=== PATIENT | male | born 1930 | race Caucasian/White ===

== ENCOUNTER 2018-04-25 16:52 | Observation (INO) ==
--- NOTE | 2018-04-25 17:46 | Emergency Department Note ---
Disposition Clinical Impression: Urinary retention Dyspnea Qualifiers: Dyspnea type: unspecified Qualified Code(s): R06.00 - Dyspnea, unspecified Disposition: Admitted As Inpatient Condition: Good Time of Disposition: 12:28 Abdominal Pain HPI - General Chief Complaint: ED Abdominal Pain Stated Complaint: ABD ,Nausea,TAI, Unable to urinate x1wk Time Seen by Provider: 04/25/18 17:40 Source: patient Mode of arrival: ambulatory Limitations: no limitations Nursing Notes Reviewed: Yes Vital Signs Reviewed: Yes - History of Present Illness HPI Narrative: Patient is an 88-year-old male with past medical history of BPH, chronic COPD for which he wears 4 L nasal cannula oxygen chronically. He presents today due to 2 different complaints. First complaint is shortness of breath. He states that he has had increased shortness breath over the past 2-3 days, worse with exertion. Denies any increase in cough from baseline, any productive sputum, denies any fevers, nausea, vomiting, diarrhea, abdominal pain, chest pain. Second complaint is inability to urinate. He reports a history of BPH, has never had any biopsies performed. He states that yesterday, he only urinated once in 24 hours. He is only able to urinate in small amounts. He has not been able to urinate since early this morning and states that he does feel like he could urinate again but is unable to. Denies any dysuria, hematuria. Family members present at bedside and reports that patient seems somewhat mildly confused at home over the past few days. Pain Scale: 5 - Related Data Home Medications Medication Instructions Recorded Confirmed Aspirin [Lo-Dose Aspirin EC] 81 mg PO DAILY 12/29/17 04/25/18 Atorvastatin [Lipitor] 40 mg PO HS 12/29/17 04/25/18 Budesonide/Formoterol 160/4.5 2 puff IH BIDR 12/29/17 04/25/18 [Symbicort 160/4.5] Docusate [Colace] 100 mg PO DAILY 12/29/17 04/25/18 Ferrous Sulfate [Iron] 325 mg PO BID 12/29/17 04/25/18 Finasteride [Proscar] 5 mg PO DAILY 12/29/17 04/25/18 Furosemide [Lasix] 40 mg PO DAILY 12/29/17 04/25/18 Guaifenesin [Mucinex] 600 mg PO BID 12/29/17 04/25/18 Lactobacillus [Culturelle] 1 each PO DAILY 12/29/17 04/25/18 Loratadine [Allergy Relief] 10 mg PO DAILY 12/29/17 04/25/18 Mirtazapine [Remeron] 15 mg PO HS 12/29/17 04/25/18 Montelukast [Singulair] 10 mg PO DAILY 12/29/17 04/25/18 Multivit-Min/FA/Lycopen/Lutein 1 tab PO DAILY 12/29/17 04/25/18 [Centrum Silver Men Tablet] Tamsulosin [Flomax] 0.4 mg PO DAILY 12/29/17 04/25/18 rOPINIRole [Requip] 0.5 mg PO BID 12/29/17 04/25/18 Albuterol Sulfate [Albuterol 2 puff IH Q6H PRN 12/30/17 04/25/18 Inhaler] Metoprolol XL (24 HR) Succ [Toprol 25 mg PO DAILY 12/30/17 04/25/18 Xl] Allergies Allergy/AdvReac Type Severity Reaction Status Date / Time Iodinated Contrast- Oral and Allergy Hives Verified 04/25/18 17:02 IV Dye [Iodinated Contrast Media - IV Dye] Tetracycline Allergy Hives Verified 04/25/18 17:02 All systems ED: reviewed and negative except as stated. Constitutional: Denies: fever Cardiovascular: Denies: chest pain Respiratory: Reports: dyspnea. Denies: cough, wheezes, hemoptysis, sputum production Gastrointestinal: Denies: abdominal pain, nausea, vomiting, diarrhea Genitourinary: Denies: urgency, dysuria, frequency Musculoskeletal: Denies: back pain Integumentary: Denies: rash Neurological: Denies: headache Abdominal Pain PMH - Past Medical History Medical history: Reports: COPD, diabetes, myocardial infarction Male Surgical History: Reports: angioplasty/stent, prostatectomy, other Psychiatric history: Reports: no psych history - Social History Smoking status: Former smoker Alcohol use: Reports: none Drug use: Reports: none Physical Exam - General Limitations: no limitations General appearance: alert, in no apparent distress - Head Head exam: atraumatic, normocephalic, normal inspection - Eye Eye exam: Present: normal appearance, PERRL, EOMI - ENT ENT exam: normal exam, normal oropharynx, mucous membranes moist - Neck Neck exam: Present: normal inspection, full ROM, trachea midline - Chest Chest inspection: Present: normal inspection, symmetric chest wall rise, other ( Midline chest scar). Absent: tenderness, rash - Respiratory Respiratory exam: Present: normal lung sounds bilaterally. Absent: respiratory distress, wheezes, stridor, accessory muscle use - Cardiovascular Cardiovascular exam: Present: regular rate, normal rhythm, normal heart sounds - Abdominal Exam Abdominal exam: Present: soft, Non-Tender. Absent: tenderness, distention, guarding, rebound, rigidity - Extremities Exam Extremities exam: Present: normal inspection, full ROM. Absent: tenderness, pedal edema - Neurological Exam Neurological exam: Present: alert, oriented X3 - Psychiatric Psychiatric exam: Present: normal affect, normal mood - Skin Skin exam: Present: warm, dry, intact, normal color Course Course Narrative: Patient was documented as having saturation 89% on presentation. However, when patient is on his 4 L nasal cannula that he chronically wears, he is satting 97% . No acute respiratory distress. Lungs were clear to auscultation. Abdomen soft and nontender. Bedside ultrasound of the bladder was performed. It appears that his prostate is very large. Concern for prostate enlargement versus bladder tumor. We will place a Collins catheter to aid with urination. Basic blood work, abdominal labs including LFTs and lipase ordered. Troponin, EKG, chest x-ray ordered. EKG shows normal sinus rhythm with no acute ST changes. Chest x-ray showso focal infiltrate but does show bronchial wall thickening. We will give the patient prednisone, DuoNeb. We will also obtain CT abdomen and pelvis to assess bladder for BPH versus bladder tumor. 12:[address] abdomen pelvis: 1. Enlarged prostate gland protruding into the urinary bladder lumen. No acute obstructive uropathy. 2. Stable 3.7 cm diameter fusiform infrarenal abdominal aortic aneurysm. CXR negative. Creat baseline for patient. PAtient reassessed and satting 90% when conversing while on 4L NC. Patient not comfortable with going home at this time. Family members in the room and agrees. Talked with hospitalist and admitted the patient for urinary retention, increased oxygen requirement, dyspnea. Accepted by Dr. Bridges. Chest X-Ray 04/25/18 17:07 IMPRESSION: No acute focal infiltrate. Bronchial wall thickening, similar when compared to the previous exam, compatible with acute and/or chronic bronchitis, reactive airways disease, or secondary to smoking. D/ / Sherif Paige MD / Sherif Paige MD Interpreting Provider: Sherif Paige MD Abdomen/Pelvis CT 04/25/18 18:08 IMPRESSION: 1. Enlarged prostate gland protruding into the urinary bladder lumen. No acute obstructive uropathy. 2. Stable 3.7 cm diameter fusiform infrarenal abdominal aortic aneurysm. RECOMMENDATIONS: 3.7 cm AAA Recommend annual follow-up. Reference: J Vasc Surg 2009 Jul;50(4 Suppl):S2-49. D/ / Giles Phelan / Giles Phelan Interpreting Provider: Giles Phelan Head CT 04/25/18 18:19 IMPRESSION: No acute intracranial abnormality. Diffuse atrophic changes with findings suggesting chronic microvascular ischemia D/ / Ezio Greco MD / Ezio Greco MD Interpreting Provider: Ezio Greco MD Chest X-Ray 04/25/18 17:07 IMPRESSION: No acute focal infiltrate. Bronchial wall thickening, similar when compared to the previous exam, compatible with acute and/or chronic bronchitis, reactive airways disease, or secondary to smoking. D/ / Sherif Paige MD / Sherif Paige MD Interpreting Provider: Sherif Paige MD Vital Signs Temperature 98 F 04/25/18 17:02 Pulse Rate 74 04/25/18 17:02 Respiratory Rate 26 04/25/18 17:02 Blood Pressure 109/63 04/25/18 17:02 O2 Sat by Pulse Oximetry 89 04/25/18 17:02 Temperature 98.6 F 04/25/18 22:30 Pulse Rate 79 04/25/18 22:30 Respiratory Rate 17 04/25/18 22:30 Blood Pressure 130/67 04/25/18 22:30 O2 Sat by Pulse Oximetry 100 04/25/18 22:30 Oxygen Delivery Oxygen Delivery Nasal Cannula Abdominal Pain - MDM Narrative Medical decision making narrative: Patient was documented as having saturation 89% on presentation. However, when patient is on his 4 L nasal cannula that he chronically wears, he is satting 97% . No acute respiratory distress. Lungs were clear to auscultation. Abdomen soft and nontender. Bedside ultrasound of the bladder was performed. It appears that his prostate is very large. Concern for prostate enlargement versus bladder tumor. We will place a Collins catheter to aid with urination. Basic blood work, abdominal labs including LFTs and lipase ordered. Troponin, EKG, chest x-ray ordered. EKG shows normal sinus rhythm with no acute ST changes. Chest x-ray showso focal infiltrate but does show bronchial wall thickening. We will give the patient prednisone, DuoNeb. We will also obtain CT abdomen and pelvis to assess bladder for BPH versus bladder tumor. 12:[address] abdomen pelvis: 1. Enlarged prostate gland protruding into the urinary bladder lumen. No acute obstructive uropathy. 2. Stable 3.7 cm diameter fusiform infrarenal abdominal aortic aneurysm. CXR negative. Creat baseline for patient. PAtient reassessed and satting 90% when conversing while on 4L NC. Patient not comfortable with going home at this time. Family members in the room and agrees. Talked with hospitalist and admitted the patient for urinary retention, increased oxygen requirement, dyspnea. Accepted by Dr. Bridges. - Medical Records Medical records reviewed: Yes I reviewed the patient's medical records. - Lab Data Lab results reviewed: Yes I reviewed the patient's lab results. Result diagrams: 04/25/18 17:23 04/25/18 17:23 Lab Results 04/25/18 04/25/18 04/25/18 Range/Units 17:23 17:23 18:50 WBC 5.2 (4.3-11.1) K/mcL RBC 3.52 L (4.19-5.50) M/mcL Hgb 10.6 L (12.9-16.9) g/dL Hct 34.0 L (37.5-50.1) % MCV 96.6 (83.0-100.0) fL MCH 30.1 (28.0-33.3) pg MCHC 31.2 L (31.6-35.5) g/dL RDW 13.2 (11.5-14.5) % Plt Count 175 (140-400) K/mcL MPV 9.7 (9.4-12.4) fL Immature Gran % 0.4 (0-4) % Seg Neutrophils % 67.9 % Lymphocytes % 14.5 % Monocytes % 10.1 % Eosinophils % 6.1 % Basophils % 1.0 % Neutrophils # 3.6 (1.6-8.9) K/mcL Lymphocytes # 0.8 (0.6-4.6) K/mcL Monocytes # 0.5 (0.0-1.3) K/mcL Eosinophils # 0.3 (0.0-0.6) K/mcL Basophils # 0.1 (0.0-0.2) K/mcL VBG pH (7.32-7.42) pH Units VBG pCO2 (41-51) mmHg VBG pO2 (25-50) mmHg VBG HCO3 (21-27) mEq/L Sodium 144 (136-145) mEq/L Potassium 4.9 (3.5-5.1) mEq/L Chloride 105 (98-107) mEq/L Carbon Dioxide 29 (23-29) mEq/L BUN 39 H (8-23) mg/dL Creatinine 2.83 H (0.70-1.30) mg/dL Est GFR ( Amer) 26 L (> 60) Est GFR (Non-Af Amer) 21 L (> 60) BUN/Creatinine Ratio 14 (6-26) Glucose 91 (70-105) mg/dL Calculated Osmolality 307 H (280-300) Calcium 9.2 (8.6-10.3) mg/dL Total Bilirubin 0.3 (0.3-1.0) mg/dL AST 21 (13-39) Units/L ALT 12 (7-52) Units/L Alkaline Phosphatase 80 (34-104) Units/L Troponin I < 0.03 (< 0.04) ng/mL B-Natriuretic Peptide (Less than 100) pg/mL Serum Total Protein 6.3 L (6.4-8.9) g/dL Albumin 3.7 (3.5-5.7) g/dL Globulin 2.6 (2.4-3.5) g/dL Albumin/Globulin Ratio 1.4 (1.1-2.2) Amylase 79 (29-103) Units/L Lipase 22 (11-82) Units/L Urine Color Yellow (Yellow) Urine Clarity Cloudy A (Clear) Urine pH 5.0 (5.0-8.0) pH Units Ur Specific Mentor 1.024 (1.010-1.025) Urine Protein Negative (Neg-Trace) mg/dL Urine Glucose (UA) Normal (Normal) mg/dL Urine Ketones Negative (Negative) mg/dL Urine Blood Negative (Negative) Urine Nitrite Negative (Negative) Urine Bilirubin Negative (Negative) Urine Urobilinogen Normal (Normal) mg/dL Ur Leukocyte Esterase Small H (Negative) Urine Microscopic RBC 0-3 (0-3) per hpf Urine Microscopic WBC 0-3 (0-3) per hpf Ur Squamous Epith Cells Many H (None-Few) per lpf Urine Bacteria None Seen (None-Few) per hpf Hyaline Casts None Seen (None-Few) per lpf Ur Culture Indicated? NO. A (NO) 04/25/18 04/25/18 Range/Units 19:17 20:10 WBC (4.3-11.1) K/mcL RBC (4.19-5.50) M/mcL Hgb (12.9-16.9) g/dL Hct (37.5-50.1) % MCV (83.0-100.0) fL MCH (28.0-33.3) pg MCHC (31.6-35.5) g/dL RDW (11.5-14.5) % Plt Count (140-400) K/mcL MPV (9.4-12.4) fL Immature Gran % (0-4) % Seg Neutrophils % % Lymphocytes % % Monocytes % % Eosinophils % % Basophils % % Neutrophils # (1.6-8.9) K/mcL Lymphocytes # (0.6-4.6) K/mcL Monocytes # (0.0-1.3) K/mcL Eosinophils # (0.0-0.6) K/mcL Basophils # (0.0-0.2) K/mcL VBG pH 7.41 (7.32-7.42) pH Units VBG pCO2 51 (41-51) mmHg VBG pO2 195 H (25-50) mmHg VBG HCO3 32 H (21-27) mEq/L Sodium (136-145) mEq/L Potassium (3.5-5.1) mEq/L Chloride (98-107) mEq/L Carbon Dioxide (23-29) mEq/L BUN (8-23) mg/dL Creatinine (0.70-1.30) mg/dL Est GFR ( Amer) (> 60) Est GFR (Non-Af Amer) (> 60) BUN/Creatinine Ratio (6-26) Glucose (70-105) mg/dL Calculated Osmolality (280-300) Calcium (8.6-10.3) mg/dL Total Bilirubin (0.3-1.0) mg/dL AST (13-39) Units/L ALT (7-52) Units/L Alkaline Phosphatase (34-104) Units/L Troponin I (< 0.04) ng/mL B-Natriuretic Peptide 218 H (Less than 100) pg/mL Serum Total Protein (6.4-8.9) g/dL Albumin (3.5-5.7) g/dL Globulin (2.4-3.5) g/dL Albumin/Globulin Ratio (1.1-2.2) Amylase (29-103) Units/L Lipase (11-82) Units/L Urine Color (Yellow) Urine Clarity (Clear) Urine pH (5.0-8.0) pH Units Ur Specific Mentor (1.010-1.025) Urine Protein (Neg-Trace) mg/dL Urine Glucose (UA) (Normal) mg/dL Urine Ketones (Negative) mg/dL Urine Blood (Negative) Urine Nitrite (Negative) Urine Bilirubin (Negative) Urine Urobilinogen (Normal) mg/dL Ur Leukocyte Esterase (Negative) Urine Microscopic RBC (0-3) per hpf Urine Microscopic WBC (0-3) per hpf Ur Squamous Epith Cells (None-Few) per lpf Urine Bacteria (None-Few) per hpf Hyaline Casts (None-Few) per lpf Ur Culture Indicated? (NO) - Radiology Data Radiology results reviewed: Yes I reviewed the patient's radiology results. Chest X-Ray 04/25/18 17:07 IMPRESSION: No acute focal infiltrate. Bronchial wall thickening, similar when compared to the previous exam, compatible with acute and/or chronic bronchitis, reactive airways disease, or secondary to smoking. D/ / Sherif Paige MD / Sherif Paige MD Interpreting Provider: Sherif Paige MD Abdomen/Pelvis CT 04/25/18 18:08 IMPRESSION: 1. Enlarged prostate gland protruding into the urinary bladder lumen. No acute obstructive uropathy. 2. Stable 3.7 cm diameter fusiform infrarenal abdominal aortic aneurysm. RECOMMENDATIONS: 3.7 cm AAA Recommend annual follow-up. Reference: J Vasc Surg 2009 Jul;50(4 Suppl):S2-49. D/ / Giles Phelan / Giles Phelan Interpreting Provider: Giles Phelan Head CT 04/25/18 18:19 IMPRESSION: No acute intracranial abnormality. Diffuse atrophic changes with findings suggesting chronic microvascular ischemia D/ / Ezio Greco MD / Ezio Greco MD Interpreting Provider: Ezio Greco MD Chest X-Ray 04/25/18 17:07 IMPRESSION: No acute focal infiltrate. Bronchial wall thickening, similar when compared to the previous exam, compatible with acute and/or chronic bronchitis, reactive airways disease, or secondary to smoking. D/ / Sherif Paige MD / Sherif Paige MD Interpreting Provider: Sherif Paige MD - EKG Data EKG attestation: Yes I reviewed and interpreted this EKG. EKG results narrative: 04/25/2018 at 17:29. Normal sinus rhythm. Rate 65. WA 179. QRS 116. QRS 114. Normal axis. No acute ST elevation or depression. Attestation Statement - Attestation Attestation: I, Dyllan Lazaro DO, examined this patient [id number] and my medical decision-making was reviewed with Dr. Chilango Wesley, Resident Physician. I agree with the documented findings, disposition and treatment plan as described except to the extent set forth below. Please see my progress notes for details.
[2018-04-25 17:47] LABS: Basophils # 0.1 K/mcL (0.0-0.2); Eosinophils # 0.3 K/mcL (0.0-0.6); Eosinophils % 6.1 %; Hemoglobin 10.6 g/dL (12.9-16.9); Immature Granulocytes % 0.4 % (0-4); Lymphocytes # 0.8 K/mcL (0.6-4.6); Lymphocytes % 14.5 %; Mean Corpuscular HGB Conc 31.2 g/dL (31.6-35.5); Mean Corpuscular Hemoglobin 30.1 pg (28.0-33.3); Mean Corpuscular Volume 96.6 fL (83.0-100.0); Mean Platelet Volume 9.7 fL (9.4-12.4); Monocytes # 0.5 K/mcL (0.0-1.3); Monocytes % 10.1 %; Neutrophils # 3.6 K/mcL (1.6-8.9); Platelet Count 175 K/mcL (140-400); Red Blood Count 3.52 M/mcL (4.19-5.50); Red Cell Distribution Width 13.2 % (11.5-14.5); Segmented Neutrophils % 67.9 %
[2018-04-25 18:07] LABS: Alanine Aminotransferase 12 Units/L (7-52); Albumin 3.7 g/dL (3.5-5.7); Albumin/Globulin Ratio 1.4 (1.1-2.2); Alkaline Phosphatase 80 Units/L (34-104); Amylase 79 Units/L (29-103); Aspartate Amino Transferase 21 Units/L (13-39); BUN/Creatinine Ratio 14 (6-26); Bilirubin,Total 0.3 mg/dL (0.3-1.0); Blood Urea Nitrogen 39 mg/dL (8-23); Calcium 9.2 mg/dL (8.6-10.3); Carbon Dioxide 29 mEq/L (23-29); Chloride 105 mEq/L (98-107); Globulin 2.6 g/dL (2.4-3.5); Glucose 91 mg/dL (70-105); Lipase 22 Units/L (11-82); Osmolality,Calculated 307 (280-300); Potassium 4.9 mEq/L (3.5-5.1); Sodium 144 mEq/L (136-145); Total Protein 6.3 g/dL (6.4-8.9); eGFR For African Americans 26 (> 60); eGFR For Non-African Americans 21 (> 60)
[2018-04-25] MEDS ORDERED: predniSONE 20 MG TABLET PO ONE (18:07)
[2018-04-25] MEDS ORDERED: Ipratropium/Albuterol Neb 3 ML IH ONE (18:07)
[2018-04-25 18:08] LABS: Troponin I < 0.03 ng/mL (< 0.04)
--- NOTE | 2018-04-25 18:49 | Emergency Department Note ---
Disposition Clinical Impression: Urinary retention Dyspnea Qualifiers: Dyspnea type: unspecified Qualified Code(s): R06.00 - Dyspnea, unspecified Disposition: Admitted As Inpatient Condition: Good Time of Disposition: 19:00 General Adult HPI - General Chief complaint: ED Abdominal Pain Stated complaint: ABD ,Nausea,TAI, Unable to urinate x1wk Time Seen by Provider: 04/25/18 17:40 Source: patient Mode of arrival: ambulatory Limitations: no limitations - History of Present Illness Pain Scale: 5 - Related Data Home Medications Medication Instructions Recorded Confirmed Aspirin [Lo-Dose Aspirin EC] 81 mg PO DAILY 12/29/17 04/25/18 Atorvastatin [Lipitor] 40 mg PO HS 12/29/17 04/25/18 Budesonide/Formoterol 160/4.5 2 puff IH BIDR 12/29/17 04/25/18 [Symbicort 160/4.5] Docusate [Colace] 100 mg PO DAILY 12/29/17 04/25/18 Ferrous Sulfate [Iron] 325 mg PO BID 12/29/17 04/25/18 Finasteride [Proscar] 5 mg PO DAILY 12/29/17 04/25/18 Furosemide [Lasix] 40 mg PO Q48H 12/29/17 04/26/18 Guaifenesin [Mucinex] 600 mg PO BID 12/29/17 04/25/18 Loratadine [Allergy Relief] 10 mg PO DAILY 12/29/17 04/25/18 Mirtazapine [Remeron] 15 mg PO HS 12/29/17 04/25/18 Montelukast [Singulair] 10 mg PO DAILY 12/29/17 04/25/18 Multivit-Min/FA/Lycopen/Lutein 1 tab PO DAILY 12/29/17 04/25/18 [Centrum Silver Men Tablet] Tamsulosin [Flomax] 0.4 mg PO DAILY 12/29/17 04/25/18 rOPINIRole [Requip] 0.5 mg PO BID 12/29/17 04/25/18 Albuterol Sulfate [Albuterol 2 puff IH Q6H PRN 12/30/17 04/25/18 Inhaler] Metoprolol XL (24 HR) Succ [Toprol 12.5 mg PO DAILY 03/25/18 07/20/18 Xl] Furosemide [Lasix] 40 mg PO Q48H 04/26/18 04/26/18 Allergies Allergy/AdvReac Type Severity Reaction Status Date / Time Tetracycline Allergy Hives Verified 04/25/18 17:02 Constitutional: Denies: fever Cardiovascular: Denies: chest pain Respiratory: Reports: dyspnea. Denies: cough, wheezes, hemoptysis, sputum production Gastrointestinal: Denies: abdominal pain, nausea, vomiting, diarrhea Genitourinary: Denies: urgency, dysuria, frequency Musculoskeletal: Denies: back pain Integumentary: Denies: rash Neurological: Denies: headache Past Medical History - Past Medical History Medical history: Reports: COPD, diabetes, myocardial infarction Surgical history: Reports: angioplasty/stent, coronary bypass (CABG) Psychiatric history: Reports: no psych history - Social History Smoking Status: Former smoker Smokeless Tobacco Status: No Alcohol use: Reports: none Drug use: Reports: none Physical Exam - General Limitations: no limitations General appearance: alert, in no apparent distress Course Vital Signs Temperature 98 F 04/25/18 17:02 Pulse Rate 74 04/25/18 17:02 Respiratory Rate 26 04/25/18 17:02 Blood Pressure 109/63 04/25/18 17:02 O2 Sat by Pulse Oximetry 89 04/25/18 17:02 Temperature 98.6 F 04/25/18 22:30 Pulse Rate 79 04/25/18 22:30 Respiratory Rate 17 04/25/18 22:30 Blood Pressure 130/67 04/25/18 22:30 O2 Sat by Pulse Oximetry 100 04/25/18 22:30 Oxygen Delivery Oxygen Delivery Nasal Cannula Medical Decision Making - Lab Data Result diagrams: 04/25/18 17:23 04/25/18 17:23 Lab Results 04/25/18 04/25/18 04/25/18 Range/Units 17:23 17:23 18:50 WBC 5.2 (4.3-11.1) K/mcL RBC 3.52 L (4.19-5.50) M/mcL Hgb 10.6 L (12.9-16.9) g/dL Hct 34.0 L (37.5-50.1) % MCV 96.6 (83.0-100.0) fL MCH 30.1 (28.0-33.3) pg MCHC 31.2 L (31.6-35.5) g/dL RDW 13.2 (11.5-14.5) % Plt Count 175 (140-400) K/mcL MPV 9.7 (9.4-12.4) fL Immature Gran % 0.4 (0-4) % Seg Neutrophils % 67.9 % Lymphocytes % 14.5 % Monocytes % 10.1 % Eosinophils % 6.1 % Basophils % 1.0 % Neutrophils # 3.6 (1.6-8.9) K/mcL Lymphocytes # 0.8 (0.6-4.6) K/mcL Monocytes # 0.5 (0.0-1.3) K/mcL Eosinophils # 0.3 (0.0-0.6) K/mcL Basophils # 0.1 (0.0-0.2) K/mcL VBG pH (7.32-7.42) pH Units VBG pCO2 (41-51) mmHg VBG pO2 (25-50) mmHg VBG HCO3 (21-27) mEq/L Sodium 144 (136-145) mEq/L Potassium 4.9 (3.5-5.1) mEq/L Chloride 105 (98-107) mEq/L Carbon Dioxide 29 (23-29) mEq/L BUN 39 H (8-23) mg/dL Creatinine 2.83 H (0.70-1.30) mg/dL Est GFR ( Amer) 26 L (> 60) Est GFR (Non-Af Amer) 21 L (> 60) BUN/Creatinine Ratio 14 (6-26) Glucose 91 (70-105) mg/dL Calculated Osmolality 307 H (280-300) Calcium 9.2 (8.6-10.3) mg/dL Total Bilirubin 0.3 (0.3-1.0) mg/dL AST 21 (13-39) Units/L ALT 12 (7-52) Units/L Alkaline Phosphatase 80 (34-104) Units/L Troponin I < 0.03 (< 0.04) ng/mL B-Natriuretic Peptide (Less than 100) pg/mL Serum Total Protein 6.3 L (6.4-8.9) g/dL Albumin 3.7 (3.5-5.7) g/dL Globulin 2.6 (2.4-3.5) g/dL Albumin/Globulin Ratio 1.4 (1.1-2.2) Amylase 79 (29-103) Units/L Lipase 22 (11-82) Units/L Urine Color Yellow (Yellow) Urine Clarity Cloudy A (Clear) Urine pH 5.0 (5.0-8.0) pH Units Ur Specific Adrian 1.024 (1.010-1.025) Urine Protein Negative (Neg-Trace) mg/dL Urine Glucose (UA) Normal (Normal) mg/dL Urine Ketones Negative (Negative) mg/dL Urine Blood Negative (Negative) Urine Nitrite Negative (Negative) Urine Bilirubin Negative (Negative) Urine Urobilinogen Normal (Normal) mg/dL Ur Leukocyte Esterase Small H (Negative) Urine Microscopic RBC 0-3 (0-3) per hpf Urine Microscopic WBC 0-3 (0-3) per hpf Ur Squamous Epith Cells Many H (None-Few) per lpf Urine Bacteria None Seen (None-Few) per hpf Hyaline Casts None Seen (None-Few) per lpf Ur Culture Indicated? NO. A (NO) 04/25/18 04/25/18 Range/Units 19:17 20:10 WBC (4.3-11.1) K/mcL RBC (4.19-5.50) M/mcL Hgb (12.9-16.9) g/dL Hct (37.5-50.1) % MCV (83.0-100.0) fL MCH (28.0-33.3) pg MCHC (31.6-35.5) g/dL RDW (11.5-14.5) % Plt Count (140-400) K/mcL MPV (9.4-12.4) fL Immature Gran % (0-4) % Seg Neutrophils % % Lymphocytes % % Monocytes % % Eosinophils % % Basophils % % Neutrophils # (1.6-8.9) K/mcL Lymphocytes # (0.6-4.6) K/mcL Monocytes # (0.0-1.3) K/mcL Eosinophils # (0.0-0.6) K/mcL Basophils # (0.0-0.2) K/mcL VBG pH 7.41 (7.32-7.42) pH Units VBG pCO2 51 (41-51) mmHg VBG pO2 195 H (25-50) mmHg VBG HCO3 32 H (21-27) mEq/L Sodium (136-145) mEq/L Potassium (3.5-5.1) mEq/L Chloride (98-107) mEq/L Carbon Dioxide (23-29) mEq/L BUN (8-23) mg/dL Creatinine (0.70-1.30) mg/dL Est GFR ( Amer) (> 60) Est GFR (Non-Af Amer) (> 60) BUN/Creatinine Ratio (6-26) Glucose (70-105) mg/dL Calculated Osmolality (280-300) Calcium (8.6-10.3) mg/dL Total Bilirubin (0.3-1.0) mg/dL AST (13-39) Units/L ALT (7-52) Units/L Alkaline Phosphatase (34-104) Units/L Troponin I (< 0.04) ng/mL B-Natriuretic Peptide 218 H (Less than 100) pg/mL Serum Total Protein (6.4-8.9) g/dL Albumin (3.5-5.7) g/dL Globulin (2.4-3.5) g/dL Albumin/Globulin Ratio (1.1-2.2) Amylase (29-103) Units/L Lipase (11-82) Units/L Urine Color (Yellow) Urine Clarity (Clear) Urine pH (5.0-8.0) pH Units Ur Specific Adrian (1.010-1.025) Urine Protein (Neg-Trace) mg/dL Urine Glucose (UA) (Normal) mg/dL Urine Ketones (Negative) mg/dL Urine Blood (Negative) Urine Nitrite (Negative) Urine Bilirubin (Negative) Urine Urobilinogen (Normal) mg/dL Ur Leukocyte Esterase (Negative) Urine Microscopic RBC (0-3) per hpf Urine Microscopic WBC (0-3) per hpf Ur Squamous Epith Cells (None-Few) per lpf Urine Bacteria (None-Few) per hpf Hyaline Casts (None-Few) per lpf Ur Culture Indicated? (NO) Attestation Statement - Attestation Attestation: I, Dyllan Lazaro DO, examined this patient [id number] and my medical decision-making was reviewed with Dr. Chilango Wesley, Resident Physician. I agree with the documented findings, disposition and treatment plan as described except to the extent set forth below. Please see my progress notes for details. 88-year-old male presents emergency room with multiple complaints. Over the last several days to weeks patient has had a decreased desire to eat food. Is also lost a significant amount weight. Patient has no specific history of cancer. Currently is denying chest pain shortness of breath headache vision changes nausea vomiting or diarrhea. Denies fevers or chills. Patient does have baseline shortness of breath, secondary to chronic COPD that requires 4 L of oxygen 24 hours a day home. Vital signs are stable on presentation. Physical exam shows a very thin frail-appearing gentleman. He does not appear to be in any respiratory distress. His conversation without dyspnea. Lungs are clear to auscultation bilaterally heart is regular. Abdomen is soft nontender nondistended no guarding no rigidity no peritoneal symptoms. Patient does have suprapubic discomfort. He does have a history of benign prostatic hypertrophy. He has had urinary issues her last 24 hours as well as iliotibial ventricles urine coming out. Bedside ultrasound was utilized on presentation showing approximately 100 mL of retained urine in the bladder. The prostate is significantly enlarged at this point. Patient has no signs of pitting edema or swelling in the lower extremities. Neurologic evaluation is unremarkable. CT imaging of the abdomen will be completed ruling out any other intra-abdominal pathology. Urinalysis will be completed CBC chemistry troponin liver function testing and lipase along with coagulation studies. Chest x-ray and CT the head will be resulted. Family member is with him at the bedside also has concerns for some intermittent confusion. VBG will be ordered to look for his oxygenation status. Symptomatically controlled will be completed. See detailed documentation of physical exam, medical intervention, medical decision- making and disposition in the resident physician's note. Patient will most likely require admission. No critical care provider the patient's treatment course at this time. 2004 Patient found a significantly enlarged prostate based on CT scan. Catheter was placed complications patient does have some relief of the symptoms. Patient is still describing shortness of breath spent a negative troponin and BNP. Chest x -ray is otherwise on a comparable. During conversation the patient dropped to 90% on his normal 4 L of oxygen. Ambulation test was going to be attempted with the patient is to dyspnea with conversation to complete this testing. Patient will be admitted for evaluation of the shortness of breath as well as cardiac treatment. He will also be evaluated with abdominal pain and prostatic enlargement. No other acute concerns or issues noted this time. No acute infectious etiology noted. Patient will be admitted. Treatment symptomatic control. CT the head is unremarkable and chest x-ray is stable.
[2018-04-25 19:04] LABS: Bilirubin,Urine Negative (Negative); Blood,Urine Negative (Negative); Clarity,Urine Cloudy (Clear); Color,Urine Yellow (Yellow); Glucose,Urine (UA) Normal (Normal); Ketones,Urine Negative (Negative); Leukocyte Esterase,Urine Small (Negative); Nitrite,Urine Negative (Negative); Protein,Urine Negative (Neg-Trace); Specific Gravity,Urine 1.024 (1.010-1.025); Urobilinogen,Urine Normal (Normal)
[2018-04-25 19:06] LABS: Bacteria,Urine None Seen per hpf (None-Few); Hyaline Casts,Urine None Seen per lpf (None-Few); RBC,Urine 0-3 per hpf (0-3); Squamous Epithelial Cell,Urine Many per lpf (None-Few); WBC,Urine 0-3 per hpf (0-3)
[2018-04-25 19:20] LABS: VBG HCO3 32 mEq/L (21-27); VBG PCO2 51 mmHg (41-51); VBG PH 7.41 pH Units (7.32-7.42); VBG PO2 195 mmHg (25-50)
[2018-04-25] MEDS ORDERED: Naloxone 0.4 MG/ML INJ IVP PRN (22:29)
[2018-04-25] MEDS ORDERED: Acetaminophen 325 MG TABLET PO PRN (22:29)
[2018-04-26] MEDS ORDERED: Metoprolol XL (24 HR) Succ 25 MG TAB.ER.24H PO SCH (09:00)
--- NOTE | 2018-04-26 12:00 | Electrocardiograph Report ---
[address] [address] Test Date: 2018-04-25 Pat Name: Som Collazo Department: 103 Room: [facility] Gender: M Electrician Telephone: JANEE : 1930 Requested By: Obdulia See Order Number: [id number] Reading MD: Cruzito Staley Measurements Intervals [place] Rate: 65 P: 99 ND: 179 QRS: 42 QRSD: 116 T: 70 QT: 403 QTc: 414 Interpretive Statements SINUS RHYTHM INCOMPLETE RIGHT BUNDLE BRANCH BLOCK Electronically Signed On 04-26-2018 11:58:52 EDT by Cruzito Staley
[2018-04-26] MEDS: Aspirin Enteric Coated 81 MG Tablet PO SCH (12:14)
[2018-04-26] MEDS: Finasteride 5 MG TABLET PO SCH (12:14)
[2018-04-26] MEDS: Furosemide 20 MG TABLET PO SCH (12:14)
[2018-04-26] MEDS: Loratadine 10 MG TABLET PO SCH (12:14)
[2018-04-26] MEDS: Lactobacillus 1 EACH CAP.SPRINK PO SCH (12:14)
[2018-04-26] MEDS: rOPINIRole 0.25 MG TABLET PO SCH ×2 (12:15→21:18)
[2018-04-26] MEDS: Multivit/Ca/Min/Fe/FA 1 TAB TABLET PO SCH (12:15)
[2018-04-26] MEDS: Budesonide/Formoterol 160/4.5 MDI IH SCH ×2 (12:43→19:39)
[2018-04-26] MEDS: *HR* Heparin 5,000 UNIT/ML VIAL SQ SCH ×2 (17:16→19:41)
--- NOTE | 2018-04-26 17:43 | Urology - Consult Note ---
Date of Encounter: 04/26/18 Time of Encounter: 17:40 - Assessment and Plan (1) Acute renal insufficiency Current Visit: Yes Status: Acute Assessment and plan: Patient serum creatinine is elevated at this time but fairly close to baseline. We will see if this improves with catheter drainage. (2) Urinary retention Current Visit: Yes Status: Acute Assessment and plan: Patient currently on Flomax which he will need to continue with. Continue catheter drainage. We will follow up with patient tomorrow. Urology CN:BREA Consult date: 04/26/18 Reason for consult Urology: Other (urinary retention) Requesting physician: Larisa Bridges History of present illness: Som is a 88-year-old male with a history of urinary retention. Patient was admitted to the hospital secondary urinary retention and acute renal insufficiency. Patient is known to the urology service for history of bladder outlet obstruction. Patient was on one Flomax per day. The daughter states that she questions whether the patient was taking his medication appropriately. He is doing well with his catheter at this time. Patient states that this happen once in the past and resolved after a week with the catheter and Flomax. Patient denies any flank pain. No current nausea or vomiting. Past Med Surg Social Fam HX - Past Medical History Medical history: COPD, diabetes, myocardial infarction Additional medical history: emphysema Psychiatric history: no psych history - Past Surgical History Surgical History: angioplasty/stent, coronary bypass (CABG) Additional surgical history: OPEN HEART. Prostate - Social History Smoking Status: Former smoker Smokeless Tobacco Status: No Alcohol use: none Drug use: none Medications and Allergies Aspirin [Lo-Dose Aspirin EC] 81 mg PO DAILY 12/29/17 [History] Atorvastatin [Lipitor] 40 mg PO HS 12/29/17 [History] Budesonide/Formoterol 160/4.5 [Symbicort 160/4.5] 2 puff IH BIDR 12/29/17 [ History] Docusate [Colace] 100 mg PO DAILY 12/29/17 [History] Ferrous Sulfate [Iron] 325 mg PO BID 12/29/17 [History] Finasteride [Proscar] 5 mg PO DAILY 12/29/17 [History] Furosemide [Lasix] 40 mg PO Q48H 12/29/17 [History] Guaifenesin [Mucinex] 600 mg PO BID 12/29/17 [History] Loratadine [Allergy Relief] 10 mg PO DAILY 12/29/17 [History] Mirtazapine [Remeron] 15 mg PO HS 12/29/17 [History] Montelukast [Singulair] 10 mg PO DAILY 12/29/17 [History] Multivit-Min/FA/Lycopen/Lutein [Centrum Silver Men Tablet] 1 tab PO DAILY [History] Tamsulosin [Flomax] 0.4 mg PO DAILY 12/29/17 [History] rOPINIRole [Requip] 0.5 mg PO BID 12/29/17 [History] Albuterol Sulfate [Albuterol Inhaler] 2 puff IH Q6H PRN 12/30/17 [History] Metoprolol XL (24 HR) Succ [Toprol Xl] 12.5 mg PO DAILY 12/30/17 [History] Furosemide [Lasix] 40 mg PO Q48H 04/26/18 [History] 3 Allergy/AdvReac Type Severity Reaction Status Date / Time Tetracycline Allergy Hives Verified 04/25/18 17:02 Review of Systems - Constitutional no chills, no fever(s) - EENT Nose, mouth and throat: no dizziness, no sore throat - Cardiovascular dyspnea, no chest pain - Respiratory dyspnea, no cough - Gastrointestinal no abdominal pain, no nausea, no vomiting - Genitourinary nocturia, no urinary urgency - Musculoskeletal no back pain, no muscle weakness - Integumentary no erythema, no swelling - Neurological no sensory deficit, no weakness - Psychiatric no anxiety, no confusion - Hematologic/Lymphatic no lymphadenopathy - Allergic/Immunologic no throat swelling, no wheezing Exam Initial Vital Signs Temp Pulse Resp BP Pulse Ox 98 F 74 26 109/63 89 04/25/18 17:02 04/25/18 17:02 04/25/18 17:02 04/25/18 17:02 04/25/18 17:02 General/Neuological: alert and oriented x 3 Eyes: normal pupils, non-icteric Neck: no lymphadenopathy noted, supple to touch Cardiovascular: RRR, no murmurs, no JVD on exam Respiratory: Patient on 4 L nasal cannula with good respiratory effort, good clear sounds ABD: soft, nontender, no masses palpated, good bowel sounds Back: no pain on percussion bilaterally : normal phallus, normal scrotum, testicles and epididymides normal, urethral meatus normal with catheter in place Skin: no rashes noted Musculoskeletal: normal gait, FROMx4 Urology Results - Labs 04/25/18 17:23 04/25/18 17:23 Abnormal lab results RBC 3.52 M/mcL (4.19-5.50) L 04/25/18 17:23 Hgb 10.6 g/dL (12.9-16.9) L 04/25/18 17: Hct 34.0 % (37.5-50.1) L 04/25/18 17: MCHC 31.2 g/dL (31.6-35.5) L 04/25/18 17:23 VBG pO2 195 mmHg (25-50) H 04/25/18 19: VBG HCO3 32 mEq/L (21-27) H 04/25/18 19: BUN 39 mg/dL (8-23) H 04/25/18 17: Creatinine 2.83 mg/dL (0.70-1.30) H 04/25/18 17:23 Est GFR ( Amer) 26 (> 60) L 04/25/18 17:23 Est GFR (Non-Af Amer) 21 (> 60) L 04/25/18 17:23 Calculated Osmolality 307 (280-300) H 04/25/18 17:23 B-Natriuretic Peptide 218 pg/mL (Less than 100) H 04/25/18 20:10 Serum Total Protein 6.3 g/dL (6.4-8.9) L 04/25/18 17:23 Urine Clarity Cloudy (Clear) A 04/25/18 18:50 Ur Leukocyte Esterase Small (Negative) H 04/25/18 18:50 Ur Squamous Epith Cells Many per lpf (None-Few) H 04/25/18 18:50 Ur Culture Indicated? NO. (NO) A 04/25/18 18:50 All other labs normal. - Imaging CT scan - abdomen: image reviewed CT scan - pelvis: image reviewed Consult Discharge Plan - Plan Referrals: Rosibel Castellano, COURT OPERATIONS CLERK [Primary Care Provider] -
--- NOTE | 2018-04-26 18:43 | Internal Med Progress Note ---
Date of Encounter: 04/26/18 Time of Encounter: 11:00 - Assessment and plan (1) Urinary retention Current Visit: Yes Status: Acute Assessment and plan: Urology consult with recommendations to continue Collins catheter drainage in addition to continuing Flomax. Will be reevaluated in the a.m. Appreciate any further recommendations. (2) CKD (chronic kidney disease) stage 4, GFR 15-29 ml/min Current Visit: Yes Status: Acute Assessment and plan: Patient with slight elevation in creatinine but appears to be close to baseline Continue to monitor (3) Anemia Current Visit: Yes Status: Acute Assessment and plan: Patient with stable chronic anemia Qualifiers: Chronic kidney disease stage: stage 4 (severe) Qualified Code(s): N18.4 - Chronic kidney disease, stage 4 (severe); D63.1 - Anemia in chronic kidney disease (4) DVT prophylaxis Current Visit: No Status: Acute Assessment and plan: Subcutaneous heparin - Time Spent With Patient Total time spent is greater than 50% in coordination of care (as documented) at patient's floor/unit and/or counseling patient: - Subjective Interval history: Patient with history of urinary retention and Collins catheter was placed in the ER - Constitutional Vitals: Temp Pulse Resp BP Pulse Ox 97.8 F 54 17 100/53 98 04/26/18 16:27 04/26/18 16:27 04/26/18 16:27 04/26/18 16:27 04/26/18 16:27 General appearance: Present: no acute distress - ENT ENT exam: Present: mucous membranes moist - Respiratory Respiratory exam: Present: CTAB. Absent: accessory muscle use, rales, rhonchi, wheezes - Cardiovascular Cardiovascular exam: Present: RRR, +S1, +S2. Absent: diastolic murmur, gallop, rubs, systolic murmur - GI/Abdominal GI/Abdominal exam: Present: soft - Psychiatric Psychiatric exam: Present: normal mood - Skin Skin exam: Present: normal color Internal Medicine: Result - Labs CBC & Chem 7: 04/25/18 17:23 04/25/18 17:23 Consult Discharge Plan - Plan Referrals: Rosibel Castellano CNP [Primary Care Provider] -
[2018-04-26] MEDS ORDERED: Mirtazapine 15 MG TABLET PO SCH (21:00)
[2018-04-27] MEDS: *HR* Heparin 5,000 UNIT/ML VIAL SQ SCH (04:58)
[2018-04-27] MEDS: Budesonide/Formoterol 160/4.5 MDI IH SCH (07:31)
[2018-04-27] MEDS ORDERED: Metoprolol XL (24 HR) Succ 25 MG TAB.ER.24H PO SCH (09:00)
[2018-04-27] MEDS: Aspirin Enteric Coated 81 MG Tablet PO SCH (09:25)
[2018-04-27] MEDS: Multivit/Ca/Min/Fe/FA 1 TAB TABLET PO SCH (09:25)
[2018-04-27] MEDS: rOPINIRole 0.25 MG TABLET PO SCH (09:25)
[2018-04-27] MEDS: Furosemide 20 MG TABLET PO SCH (09:25)
[2018-04-27] MEDS: Finasteride 5 MG TABLET PO SCH (09:25)
[2018-04-27] MEDS: Lactobacillus 1 EACH CAP.SPRINK PO SCH (09:26)
[2018-04-27] MEDS: Loratadine 10 MG TABLET PO SCH (09:26)
--- NOTE | 2018-04-27 09:56 | Urology Progress Note ---
Date of Encounter: 04/27/18 Time of Encounter: 09:55 - Assessment and Plan (1) Acute renal insufficiency Current Visit: Yes Status: Acute Assessment and plan: Labs pending. (2) Urinary retention Current Visit: Yes Status: Acute Assessment and plan: Keep catheter in place. Okay for patient to follow up with urology in 1-2 weeks for voiding trial. Call with any questions. Progress Note Narrative: Som is an 88-year-old male with a history of urinary retention. Patient's labs are pending. Good urine output. Objective Initial Vital Signs Temp Pulse Resp BP Pulse Ox 98 F 74 26 109/63 89 04/25/18 17:02 04/25/18 17:02 04/25/18 17:02 04/25/18 17:02 04/25/18 17:02 - General physical appearance Present: well developed, well nourished - Abdomen Present: soft. Absent: tender - Genitourinary Present: normal penis with no external lesions (Clear urine in catheter) - Labs 04/25/18 17:23 04/25/18 17:23 Consult Discharge Plan - Plan Referrals: Rosibel Castellano, PHYSICIAN NON INVASIVE CARDIOLOGIST [Primary Care Provider] -
[2018-04-27 10:40] LABS: Basophils % 0.6 %; Eosinophils # 0.2 K/mcL (0.0-0.6); Eosinophils % 3.7 %; Hematocrit 31.3 % (37.5-50.1); Hemoglobin 9.9 g/dL (12.9-16.9); Immature Granulocytes % 0.3 % (0-4); Lymphocytes # 0.8 K/mcL (0.6-4.6); Lymphocytes % 12.4 %; Mean Corpuscular HGB Conc 31.6 g/dL (31.6-35.5); Mean Corpuscular Hemoglobin 30.2 pg (28.0-33.3); Mean Corpuscular Volume 95.4 fL (83.0-100.0); Monocytes # 0.6 K/mcL (0.0-1.3); Monocytes % 8.6 %; Neutrophils # 4.8 K/mcL (1.6-8.9); Platelet Count 176 K/mcL (140-400); Red Blood Count 3.28 M/mcL (4.19-5.50); Red Cell Distribution Width 13.2 % (11.5-14.5); Segmented Neutrophils % 74.4 %
[2018-04-27 10:50] LABS: Calcium 8.9 mg/dL (8.6-10.3); Potassium 4.4 mEq/L (3.5-5.1)
[2018-04-27 10:53] VITALS: BP 118/60
--- NOTE | 2018-04-27 14:11 | Discharge Summary ---
- NOTES TO OUTPATIENT PROVIDER Notes to Outpatient Provider: Patient to maintain Collins catheter and follow-up with urology in 1-2 weeks for voiding trial Orders not resulted at time of discharge: Pending orders 04/26/18 04:00 Complete Blood Count [HEME] AM 0400 Date of Encounter: 04/27/18 Time of Encounter: 11:00 - Discharge Diagnosis (1) Urinary retention Priority: Primary Status: Acute (2) CKD (chronic kidney disease) stage 4, GFR 15-29 ml/min Priority: Secondary Status: Acute (3) Anemia Priority: Secondary Status: Acute Qualifiers: Chronic kidney disease stage: stage 4 (severe) Qualified Code(s): N18.4 - Chronic kidney disease, stage 4 (severe); D63.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 In the ER, Collins catheter was placed and patient was admitted to medical surgical unit for further management. During patients hospital stay urology was consulted with recommendations to continue home medications including Flomax and to be discharged with Collins catheter. Patient will follow-up with urology in 1-2 weeks for a voiding trial. - Time Spent with Patient Total time spent providing and/or coordinating discharge services: Less than 30 minutes - Discharge Medications Home Medications: Aspirin [Lo-Dose Aspirin EC] 81 mg PO DAILY 12/29/17 [History] Atorvastatin [Lipitor] 40 mg PO HS 12/29/17 [History] Budesonide/Formoterol 160/4.5 [Symbicort 160/4.5] 2 puff IH BIDR 12/29/17 [ History] Docusate [Colace] 100 mg PO DAILY 12/29/17 [History] Ferrous Sulfate [Iron] 325 mg PO BID 12/29/17 [History] Finasteride [Proscar] 5 mg PO DAILY 12/29/17 [History] Furosemide [Lasix] 40 mg PO Q48H 12/29/17 [History] Guaifenesin [Mucinex] 600 mg PO BID 12/29/17 [History] Loratadine [Allergy Relief] 10 mg PO DAILY 12/29/17 [History] Mirtazapine [Remeron] 15 mg PO HS 12/29/17 [History] Montelukast [Singulair] 10 mg PO DAILY 12/29/17 [History] Multivit-Min/FA/Lycopen/Lutein [Centrum Silver Men Tablet] 1 tab PO DAILY [History] Tamsulosin [Flomax] 0.4 mg PO DAILY 12/29/17 [History] rOPINIRole [Requip] 0.5 mg PO BID 12/29/17 [History] Albuterol Sulfate [Albuterol Inhaler] 2 puff IH Q6H PRN 12/30/17 [History] Metoprolol XL (24 HR) Succ [Toprol Xl] 12.5 mg PO DAILY 12/30/17 [History] Furosemide [Lasix] 40 mg PO Q48H 04/26/18 [History] Allergies/Adverse Reactions: 3 Allergy/AdvReac Type Severity Reaction Status Date / Time Tetracycline Allergy Hives Verified 04/25/18 17:02 Date of admission: 04/25/18 21:48 Primary care physician: NATALYA Isaac Consults: 04/25/18 22:31 Consult to Physical Therapy [CONS] Routine Comment: Evaluate, develop and implement POC Reason for Consult: Weakness Does patient have active BEDREST order?: No Is patient medically & hemodynamically stable?: Yes Consult to Underwear Cutter [CONS] Routine Reason for SW Consult: Pt needs help with CPAP machine 04/25/18 22:34 consult to hand surgeon [Consult to Nutrition] [CONS] Routine Comment: Consulting Provider: NUTRITION Reason for Dietary Consult: PO Supplementation 04/25/18 23:38 Consult to Nutrition [CONS] Routine Comment: Consulting Provider: NUTRITION Reason for Dietary Consult: Diet Education - Constitutional Vitals: Temp Pulse Resp BP Pulse Ox 98.9 F 54 17 118/60 96 04/27/18 10:52 04/27/18 10:52 04/27/18 10:52 04/27/18 10:52 04/27/18 10:52 General appearance: Present: no acute distress - Cardiovascular Cardiovascular exam: Present: RRR, +S1, +S2. Absent: diastolic murmur, gallop, rubs, systolic murmur - Patient Status Disposition: Home, Self-Care Condition: Good - Discharge Instructions Instructions: Urinary Retention in Men (GEN), Collins Catheter Placement and Care (DC) Follow Up With: Conrado Thomson MD [Partnered Physician] - (Web Requested) Rosibel Castellano CNP [Primary Care Provider] -
--- NOTE | 2018-04-29 10:29 | Physician Discharge Referral ---
Home Health/Hosp Referral Info Transfer to: Home Health - Diagnosis (1) Urinary retention Status: Acute (2) CKD (chronic kidney disease) stage 4, GFR 15-29 ml/min Status: Acute (3) Anemia Status: Acute - Respiratory Orders Smoking Cessation: Smoking cessation has been advised. For more information, call the [place] Tobacco Quit Line at 0-068-IMFP-NOW. - Services Needed Following services are medically necessary services: Nursing, Physical Therapy, Occupational Therapy - Transfer Medications Home Medications: Aspirin [Lo-Dose Aspirin EC] 81 mg PO DAILY 12/29/17 [History] Atorvastatin [Lipitor] 40 mg PO HS 12/29/17 [History] Budesonide/Formoterol 160/4.5 [Symbicort 160/4.5] 2 puff IH BIDR 12/29/17 [ History] Docusate [Colace] 100 mg PO DAILY 12/29/17 [History] Ferrous Sulfate [Iron] 325 mg PO BID 12/29/17 [History] Finasteride [Proscar] 5 mg PO DAILY 12/29/17 [History] Furosemide [Lasix] 40 mg PO Q48H 12/29/17 [History] Guaifenesin [Mucinex] 600 mg PO BID 12/29/17 [History] Loratadine [Allergy Relief] 10 mg PO DAILY 12/29/17 [History] Mirtazapine [Remeron] 15 mg PO HS 12/29/17 [History] Montelukast [Singulair] 10 mg PO DAILY 12/29/17 [History] Multivit-Min/FA/Lycopen/Lutein [Centrum Silver Men Tablet] 1 tab PO DAILY [History] Tamsulosin [Flomax] 0.4 mg PO DAILY 12/29/17 [History] rOPINIRole [Requip] 0.5 mg PO BID 12/29/17 [History] Albuterol Sulfate [Albuterol Inhaler] 2 puff IH Q6H PRN 12/30/17 [History] Metoprolol XL (24 HR) Succ [Toprol Xl] 12.5 mg PO DAILY 12/30/17 [History] Furosemide [Lasix] 40 mg PO Q48H 04/26/18 [History] Allergies/Adverse Reactions: 3 Allergy/AdvReac Type Severity Reaction Status Date / Time Tetracycline Allergy Hives Verified 04/25/18 17:02 Certification: Further, I certify that my clinical findings support that this patient is homebound (i.e. absences from home require considerable and taxing effort and are for medical reasons or worship services or infrequently or short duration when for other reasons) because: Homebound Reason: Patient requires assistance of a person or device to safely leave home Attestation: My signature below is to certify that this patient is under my care and that I, or nurse practitioner, or a physician's assistant community director working with me, has a face-to -face encounter with this patient.
== END 2018-04-27 15:55 | disposition home or self-care (01) ==
LOC: 2ANU 16:52 → EMEROO 16:52 → SUATTDRO 21:48 → 2ANU 21:58
PROVIDERS: ADMIT Internal Medicine; ATTEND Hospitalist

== ENCOUNTER 2018-09-01 13:06 | Inpatient (IN) ==
[2018-09-01] MEDS ORDERED: 0.9 % Sodium Chloride 1,000 ML IV SCH (16:45)
[2018-09-01] MEDS ORDERED: Naloxone 0.4 MG/ML INJ IVP PRN (18:18)
--- NOTE | 2018-09-01 18:38 | Internal Med History&Physical ---
Date of Encounter: 09/01/18 Time of Encounter: 11:00 Internal Medicine - H&P: HPI Chief complaint: Acute on chronic renal failure Admitted From: Hospital to Hospital Transfer History of present illness: Patient is an 88-year-old male with past medical history sniff can for urinary retention, CJD stage IV and chronic anemia who presents from [facility] ER on 09/01/18 due to acute on chronic renal failure. Patient is a poor historian but ER physician at [facility] states that patient will need transfer due to management of acute on chronic renal failure. Patient was found to have a creatinine of 3.8 with a GFR 15. Patient therefore subsequently transferred here to [facility] to be seen and managed by nephrology. Past Med Surg Social Fam HX - Past Medical History Medical history: COPD, diabetes, myocardial infarction Additional medical history: emphysema Psychiatric history: no psych history - Past Surgical History Surgical History: angioplasty/stent, coronary bypass (CABG) Additional surgical history: OPEN HEART. Prostate - Social History Smoking Status: Former smoker Smokeless Tobacco Status: No Alcohol use: none Drug use: none Internal Medicine - H&P: Meds Aspirin [Lo-Dose Aspirin EC] 81 mg PO DAILY 12/29/17 [History] Atorvastatin [Lipitor] 40 mg PO DAILY 12/29/17 [History] Budesonide/Formoterol 160/4.5 [Symbicort 160/4.5] 2 puff IH BIDR 12/29/17 [History] Docusate [Colace] 100 mg PO DAILY 12/29/17 [History] Ferrous Sulfate [Iron] 325 mg PO BID 12/29/17 [History] Finasteride [Proscar] 5 mg PO DAILY 12/29/17 [History] Guaifenesin [Mucinex] 600 mg PO BID 12/29/17 [History] Loratadine [Allergy Relief] 10 mg PO DAILY 12/29/17 [History] Mirtazapine [Remeron] 15 mg PO HS 12/29/17 [History] Montelukast [Singulair] 10 mg PO DAILY 12/29/17 [History] Multivit-Min/FA/Lycopen/Lutein [Centrum Silver Men Tablet] 1 tab PO DAILY 12/29/17 [History] Tamsulosin [Flomax] 0.4 mg PO DAILY 12/29/17 [History] rOPINIRole [Requip] 0.5 mg PO BID 12/29/17 [History] Albuterol Sulfate [Albuterol Inhaler] 2 puff IH Q6H PRN 12/30/17 [History] Metoprolol XL (24 HR) Succ [Toprol Xl] 12.5 mg PO DAILY 12/30/17 [History] Furosemide [Lasix] 40 mg PO Q48H 04/26/18 [History] Furosemide [Lasix] 20 mg PO Q48H 09/01/18 [History] Allergy/AdvReac Type Severity Reaction Status Date / Time tetracycline [Tetracycline] Allergy Hives Verified 09/01/18 16:01 Iodinated Contrast- Oral and AdvReac Pass Out Verified 09/01/18 16:02 IV Dye ROS unobtainable: due to mental status All Systems PM: A 10-system review of systems was performed and is negative for pertinent findings except as documented above in the HPI. - Constitutional Vitals: Temp Pulse Resp BP Pulse Ox 99.2 F 64 18 111/53 3 09/01/18 15:02 09/01/18 15:02 09/01/18 15:02 09/01/18 15:02 09/01/18 15:23 General appearance: Present: no acute distress Exam: As above - Head Head exam: Present: normocephalic - Eye Eye exam: Present: normal appearance - ENT ENT exam: Present: normal exam - Respiratory Respiratory exam: Present: CTAB. Absent: accessory muscle use, rales, rhonchi, wheezes - Cardiovascular Cardiovascular exam: Present: RRR, +S1, +S2. Absent: diastolic murmur, gallop, rubs, systolic murmur - GI/Abdominal GI/Abdominal exam: Present: normal bowel sounds, soft, no peritoneal signs. Absent: distended, tenderness - Extremities Exam Extremities exam: Absent: pedal edema - Neurological Exam Neurological exam: Present: alert - Psychiatric Psychiatric exam: Present: normal mood - Skin Skin exam: Present: normal color Internal Med - H&P Results - Impressions ITS Impressions Chest X-Ray 09/01/18 15:12 IMPRESSION: Patchy bilateral airspace changes that could represent atelectasis or infiltrates. Follow up to resolution is suggested. D/ / 09/01/2018 16:09:29 Gudelia Segovia MD / leroy Interpreting Provider: Gudelia Segovia MD - Assessment and plan (1) CKD (chronic kidney disease) stage 4, GFR 15-29 ml/min Current Visit: No Status: Acute Assessment and plan: Patient with a creatinine of 3.8 with baseline which appears to be around 2.4- 2.5 We will give gentle IV fluids and consult nephrology and appreciate recommendations. (2) Anemia Current Visit: No Status: Acute Assessment and plan: Stable; continue to monitor Qualifiers: Chronic kidney disease stage: stage 4 (severe) Qualified Code(s): N18.4 - Chronic kidney disease, stage 4 (severe); D63.1 - Anemia in chronic kidney disease (3) DVT prophylaxis Current Visit: No Status: Acute Assessment and plan: Heparin subcutaneous - Time Spent With Patient Total time spent is greater than 50% in coordination of care (as documented) at patient's floor/unit and/or counseling patient:
[2018-09-01] MEDS: Budesonide/Formoterol 160/4.5 1 PUFF INH IH SCH (20:34)
[2018-09-01] MEDS: *HR* Heparin 5,000 UNIT/ML VIAL SQ SCH (21:11)
[2018-09-01] MEDS: rOPINIRole 0.25 MG TABLET PO SCH (21:12)
[2018-09-01] MEDS: Mirtazapine 15 MG TABLET PO SCH (21:12)
[2018-09-02] MEDS: Acetaminophen 325 MG TABLET PO PRN ×3 (00:26→13:28)
[2018-09-02] MEDS: *HR* Heparin 5,000 UNIT/ML VIAL SQ SCH ×3 (05:11→20:59)
[2018-09-02 06:01] LABS: Basophils % 0.3 %; Hemoglobin 9.7 g/dL (12.9-16.9); Immature Granulocytes % 0.3 % (0-4); Lymphocytes # 0.4 K/mcL (0.6-4.6); Lymphocytes % 11.1 %; Mean Corpuscular HGB Conc 31.3 g/dL (31.6-35.5); Mean Corpuscular Hemoglobin 30.1 pg (28.0-33.3); Mean Corpuscular Volume 96.3 fL (83.0-100.0); Mean Platelet Volume 10.7 fL (9.4-12.4); Monocytes # 0.6 K/mcL (0.0-1.3); Monocytes % 16.5 %; Neutrophils # 2.8 K/mcL (1.6-8.9); Platelet Count 103 K/mcL (140-400); Red Blood Count 3.22 M/mcL (4.19-5.50); Red Cell Distribution Width 12.9 % (11.5-14.5); Segmented Neutrophils % 71.8 %
[2018-09-02 06:27] LABS: Platelet Estimate Slight Decrease (Normal)
[2018-09-02 06:30] LABS: Calcium 8.6 mg/dL (8.6-10.3); Potassium 4.8 mEq/L (3.5-5.1)
[2018-09-02] MEDS: Budesonide/Formoterol 160/4.5 1 PUFF INH IH SCH ×2 (07:24→19:57)
[2018-09-02] MEDS ORDERED: Levofloxacin 750 MG/150 ML 750 MG/150 ML BAG IVPB ONE (07:50)
[2018-09-02] MEDS: Multivit/Ca/Min/Fe/FA 1 TAB TABLET PO SCH (08:50)
[2018-09-02] MEDS: Aspirin Enteric Coated 81 MG Tablet PO SCH (08:50)
[2018-09-02] MEDS: Metoprolol XL (24 HR) Succ 25 MG TAB.ER.24H PO SCH (08:50)
[2018-09-02] MEDS: Loratadine 10 MG TABLET PO SCH (08:50)
[2018-09-02] MEDS: Finasteride 5 MG TABLET PO SCH (08:50)
[2018-09-02] MEDS: rOPINIRole 0.25 MG TABLET PO SCH ×2 (08:51→20:59)
[2018-09-02 10:13] LABS: Adenovirus Not Detected (Not Detect); Bordetella Pertussis Not Detected (Not Detect); Chlamydophila pneumoniae Not Detected (Not Detect); Coronavirus 229E Not Detected (Not Detect); Coronavirus HKU1 Not Detected (Not Detect); Coronavirus NL63 Not Detected (Not Detect); Coronavirus OC43 Not Detected (Not Detect); Human Metapneumovirus Not Detected (Not Detect); Human Rhinovirus/Enterovirus DETECTED (Not Detect); Influenza A Subtype 2009 H1 Not Detected (Not Detect); Influenza A Untypeable Not Detected (Not Detect); Influenza B Not Detected (Not Detect); Mycoplasma pneumoniae Not Detected (Not Detect); Parainfluenza Virus 1 Not Detected (Not Detect); Parainfluenza Virus 2 Not Detected (Not Detect); Parainfluenza Virus 3 Not Detected (Not Detect); Parainfluenza Virus 4 Not Detected (Not Detect); Respiratory Syncytial Virus Not Detected (Not Detect)
--- NOTE | 2018-09-02 11:42 | Internal Med Progress Note ---
Hospitalist Progress Note - Encounter Date of Encounter: 09/02/18 Time of Encounter: 09:00 - Subjective Interval History: H&P reviewed. Patient with history of CKD stage IV, COPD on 4 L of oxygen, is admitted for acute on chronic kidney failure. Cr improved with IVF overnight but he developed fever with Tmax 102.5 at 12 midnight. CXR showed ?bilateral airspace changes and patient does report symptom of SOB and cough for the last 4-5 days. No fever but endorses chills as well. No chest pain, palpitation, orthopnea, PND, or LE edema. No abdominal pain or diarrhea. He feels marginally better than yesterday at least. - Exam Vitals: Temp Pulse Resp BP Pulse Ox 100.1 F H 116 17 146/69 92 09/02/18 11:22 09/02/18 11:22 09/02/18 11:22 09/02/18 11:22 09/02/18 11:22 Exam: General: Alert and oriented, not in acute distress. Cardiovascular:Normal S1 & S2, No JVD. Pulse regular. Lungs: Scattered rhonchi, no wheezes Abdomen:Soft, non-tender, no rigidity. Extremities:No deformity or swelling Neurological:Normal cognition and motor skills. Non-focal - Assessment and Plan (1) Acute on chronic kidney failure Current Visit: Yes Status: Acute Assessment and Plan: Improving on IVF, continue baseline Cr around 3 (2) Fever Current Visit: Yes Status: Acute Assessment and Plan: developed fever overnight with CXR finding as above patient's symptom also correlate to pulmonary pathology will start levaquin check blood cultures, RIP, UA, and urine culture sputum culture if able to urine legionella/strep ag (3) Pneumonia Current Visit: Yes Status: Acute Assessment and Plan: as above (4) COPD (chronic obstructive pulmonary disease) Current Visit: Yes Status: Acute Assessment and Plan: Tx PNA as above steroids, bronchodilators (5) Anemia Current Visit: No Status: Chronic Assessment and Plan: Stable; likely related to CKD. continue to monitor (6) DVT prophylaxis Current Visit: No Status: Acute Assessment and Plan: Subcutaneous heparin - Time Spent with Patient Total time spent is greater than 50% in coordination of care (as documented) at patient's floor/unit and/or counseling patient: Plan of Care Discussed with: patient Internal Medicine: Result - Labs CBC & Chem 7: 09/02/18 05:34 09/02/18 05:34 Labs: Short CBC 09/02/18 Range/Units 05:34 WBC 3.9 L (4.3-11.1) K/mcL Hgb 9.7 L (12.9-16.9) g/dL Hct 31.0 L (37.5-50.1) % Plt Count 103 L (140-400) K/mcL Neutrophils # 2.8 (1.6-8.9) K/mcL BMP 09/01/18 09/02/18 15:35 05:34 Sodium 140 Potassium 4.7 4.8 Chloride 102 Carbon Dioxide 26 BUN 57 H Creatinine 3.40 H Glucose 131 H Calcium 8.6 - Impressions Impressions Chest X-Ray 09/01/18 15:12 IMPRESSION: Patchy bilateral airspace changes that could represent atelectasis or infiltrates. Follow up to resolution is suggested. D/ / 09/01/2018 16:09:29 Gudelia Segovia MD / leroy Interpreting Provider: Gudelia Segovia MD Consult Discharge Plan - Plan Referrals: Rosibel Castellano, [employer] [Primary Care Provider] - (1) Acute on chronic kidney failure Qualifiers: Acute renal failure type: unspecified Chronic kidney disease stage: stage 4 (severe) Qualified Code(s): N17.9 - Acute kidney failure, unspecified; N18.4 - Chronic kidney disease, stage 4 (severe) (2) Fever Qualifiers: Fever type: unspecified Qualified Code(s): R50.9 - Fever, unspecified (3) Pneumonia Qualifiers: Pneumonia type: due to unspecified organism Laterality: bilateral Lung location: lower lobe of lung Qualified Code(s): J18.1 - Lobar pneumonia, unspecified organism (4) COPD (chronic obstructive pulmonary disease) Qualifiers: COPD type: COPD with acute lower respiratory infection Qualified Code(s): J44.0 - Chronic obstructive pulmonary disease with acute lower respiratory infection (5) Anemia Qualifiers: Chronic kidney disease stage: stage 4 (severe) Qualified Code(s): N18.4 - Chronic kidney disease, stage 4 (severe); D63.1 - Anemia in chronic kidney disease
[2018-09-02] MEDS: MethylPREDNISolone 40 MG/ML VIAL IVP SCH ×2 (12:14→23:20)
--- NOTE | 2018-09-02 14:19 | Nephrology Consult Note ---
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 - Laboratory analysis at [facility] demonstrates SCr 3.4, BUN 57, GFR 17 - Baseline creatinine per chart review: 2.4-2.5 - Calculated CrCl: 15 - Patient takes 0.4 of Flomax daily; reports difficulty emptying bladder for 5 months Plan: - Retroperitoneal ultrasound - Continue home Flomax - Renally dose medications, avoid nephrotoxins if possible Qualifiers: Acute renal failure type: unspecified Chronic kidney disease stage: stage 4 (severe) Qualified Code(s): N17.9 - Acute kidney failure, unspecified; N18.4 - Chronic kidney disease, stage 4 (severe) (2) Fever Current Visit: Yes Status: Acute - Patient developed fever with Tmax 102.5 - Unknown etiology at this time; possibly secondary to viral URI; patient endorsed cough/SOB for 4-5 days - Respiratory infection panel was positive for Entero/rhinovirus - Chest x-ray: demonstrated b/l airspace changes - Patient was placed on Levaquin - Strep, and Legionella urine antigen pending - Blood and urine cultures pending Plan: - Levaquin (started on 09/02; day 1 of ABX); - Will adjust Levaquin dose based on CrCl of 15 to 500mg IV Q48H - Continue to monitor patients clinical status Qualifiers: Fever type: unspecified Qualified Code(s): R50.9 - Fever, unspecified (3) COPD (chronic obstructive pulmonary disease) Current Visit: Yes Status: Acute - Known history of COPD; dependent on 4 L of O2 Plan: - Albuterol inhaler as needed - O2 via nasal cannula; maintain SPO2 greater than 92% - DuoNeb nebs as needed - Levaquin 750 IV daily Qualifiers: COPD type: COPD with acute lower respiratory infection Qualified Code(s): J44.0 - Chronic obstructive pulmonary disease with acute lower respiratory infection (4) CKD (chronic kidney disease) stage 4, GFR 15-29 ml/min Current Visit: Yes Status: Acute - Baseline creatinine is 2.4-2.5 - Renal diet - Plan as above (5) Anemia Current Visit: No Status: Chronic - Laboratory analysis demonstrates hemoglobin of 9.7 - Patient has a known history of chronic anemia; baseline appears to be between 9 and 10 - Likely secondary to renal disease - Stable; continue to monitor Qualifiers: Chronic kidney disease stage: stage 4 (severe) Qualified Code(s): N18.4 - Chronic kidney disease, stage 4 (severe); D63.1 - Anemia in chronic kidney disease (6) DVT prophylaxis Current Visit: No Status: Acute - Heparin subcutaneous History of Present Illness - History of Present Illness Som Collazo is an 88-year-old male with a PMH of COPD on 4L O2, DM, LA status post CABG who presented to [facility] as a transfer from [facility] on 09/01/18 for acute on chronic renal failure. Patient was noted to be a poor historian; per [facility] physician, patient was found to have a creatinine of 3.8 with a GFR 15. CXR demonstrated patchy bilateral airspace changes that could represent atelectasis or infiltrates. Laboratory analysis demonstrated a BNP of 606 and a potassium of 4.7. Respiratory infection panel was positive for enterovirus/rhinovirus. Patients creatinine today is 3.40, BUN is 57, and GFR is 17. Patient has a known history of CKD stage IV; baseline creatinine 2.4-2.5. Patient was started on gentle IV fluid hydration. Patients creatinine improved, but patient was noted to develop a fever with MAXIMUM TEMPERATURE 102.5 after admission. CXR was obtained, demonstrated bilateral airspace changes. Patient did endorse having shortness of breath and cough of 4-5 days duration. Patient was started on Levaquin. Blood and urine CXs were obtained. Strep and Legionella antigens are pending. Patient seen and examined at bedside; patient states that he has subjective fevers and chills. He also states that he has had difficulty emptying his bladder for the last 5 months. He reports that he has to strain more than he did before. He denies having any pain with urination. Denies having any other urinary symptoms. Patient denies productive cough, shortness of breath, abdomin al pain, suprapubic pain, flank pain, weakness, fatigue, or headache. He has no further complaints. Past Med Surg Social Fam HX - Past Medical History Medical history: COPD, diabetes, myocardial infarction Additional medical history: emphysema Psychiatric history: no psych history - Past Surgical History Surgical History: angioplasty/stent, coronary bypass (CABG) Additional surgical history: OPEN HEART. Prostate - Social History Smoking Status: Former smoker Smokeless Tobacco Status: No Alcohol use: none Drug use: none Medications and Allergies Aspirin [Lo-Dose Aspirin EC] 81 mg PO DAILY 12/29/17 [History] Atorvastatin [Lipitor] 40 mg PO DAILY 12/29/17 [History] Budesonide/Formoterol 160/4.5 [Symbicort 160/4.5] 2 puff IH BIDR 12/29/17 [History] Docusate [Colace] 100 mg PO DAILY 12/29/17 [History] Ferrous Sulfate [Iron] 325 mg PO BID 12/29/17 [History] Finasteride [Proscar] 5 mg PO DAILY 12/29/17 [History] Guaifenesin [Mucinex] 600 mg PO BID 12/29/17 [History] Loratadine [Allergy Relief] 10 mg PO DAILY 12/29/17 [History] Mirtazapine [Remeron] 15 mg PO HS 12/29/17 [History] Montelukast [Singulair] 10 mg PO DAILY 12/29/17 [History] Multivit-Min/FA/Lycopen/Lutein [Centrum Silver Men Tablet] 1 tab PO DAILY 12/29/17 [History] Tamsulosin [Flomax] 0.4 mg PO DAILY 12/29/17 [History] rOPINIRole [Requip] 0.5 mg PO BID 12/29/17 [History] Albuterol Sulfate [Albuterol Inhaler] 2 puff IH Q6H PRN 12/30/17 [History] Metoprolol XL (24 HR) Succ [Toprol Xl] 12.5 mg PO DAILY 12/30/17 [History] Furosemide [Lasix] 40 mg PO Q48H 04/26/18 [History] Furosemide [Lasix] 20 mg PO Q48H 09/01/18 [History] Allergy/AdvReac Type Severity Reaction Status Date / Time tetracycline [Tetracycline] Allergy Hives Verified 09/01/18 16:01 Iodinated Contrast- Oral and AdvReac Pass Out Verified 09/01/18 16:02 IV Dye Exam - Vital Signs Vital signs: Initial Vital Signs Temp Pulse Resp BP Pulse Ox 99.2 F 64 18 111/53 95 09/01/18 15:02 09/01/18 15:02 09/01/18 15:02 09/01/18 15:02 09/01/18 15:02 Vital Signs - Last 8 Hours Temp Pulse Resp BP Pulse Ox 09/02/18 11:22 100.1 F H 116 17 146/69 92 09/02/18 07:26 18 89 09/02/18 07:10 101.7 F H 120 17 164/67 89 Intake and Output 09/01/18 09/02/18 09/02/18 23:59 07:59 15:59 Intake Total 240 / 240 1300 / 1300 970 / 970 Output Total 0 / 0 0 / 0 Balance 240 / 240 1300 / 1300 970 / 970 Intake: IV Fluids 1000 / 1000 150 / 150 0.9 % Sodium Chloride 1,000 ML 1000 / 1000 @ 50 mls/hr IV .Q20H [facility] Rx#: [id number] Levaquin Premix 750mg/150 mL 150 / 150 750 mg In 150 ml @ 100 mls/hr IVPB ONCE ONE Rx#:[id number] Oral 240 / 240 300 / 300 820 / 820 Output: Urine 0 / 0 0 / 0 Other: Meal Dinner Breakfast Percent of Meal Consumed 75% 5% Stool Size Moderate Small Stool Consistency loose soft soft formed Stool Characteristics Normal for Patient Normal for Patient Stool Color Black Brown Black # Voids 1 1 # Bowel Movements 1 1 Weight 70.874 kg - General Appearance Exam: General: Alert and oriented, patient is hard of hearing. No acute distress Head: atraumatic, normocephalic Neck: Supple, trachea midline; No lymphadenopathy Respiratory: Diminished breath sounds bilaterally, bibasilar crackles Cardiovascular: RRR, S1, S2, no murmurs, rubs, gallops Abdomen: Soft, nondistended Extremities: warm, radial pulses palpable and symmetrical Neurological: No focal deficits Skin: Dry, intact Results - Lab Results 09/02/18 05:34 09/02/18 05:34 Most recent lab results Calcium 8.6 mg/dL (8.6-10.3) 09/02/18 05:34 Consult Discharge Plan - Plan Referrals: Rosibel Castellano CNP [Primary Care Provider] - <Dimitri Montemayor - Last Filed: 09/02/18 19:53> Date of Encounter: 09/02/18 Exam - Vital Signs Vital signs: Initial Vital Signs Temp Pulse Resp BP Pulse Ox 99.2 F 64 18 111/53 95 09/01/18 15:02 09/01/18 15:02 09/01/18 15:02 09/01/18 15:02 09/01/18 15:02 Vital Signs - Last 8 Hours Temp Pulse Resp BP Pulse Ox 09/02/18 16:02 99.3 F 85 18 129/67 99 09/02/18 15:37 18 94 09/02/18 13:28 100.5 F H Intake and Output 09/02/18 09/02/18 09/02/18 07:59 15:59 23:59 Intake Total 1300 / 1300 970 / 970 Output Total 0 / 0 950 / 950 Balance 1300 / 1300 970 / 970 -950 / -950 Intake: IV Fluids 1000 / 1000 150 / 150 0.9 % Sodium Chloride 1,000 ML 1000 / 1000 @ 50 mls/hr IV .Q20H [facility] Rx#: [id number] Levaquin Premix 750mg/150 mL 150 / 150 750 mg In 150 ml @ 100 mls/hr IVPB ONCE ONE Rx#:[id number] Oral 300 / 300 820 / 820 Output: Urine 0 / 0 100 / 100 Catheter 850 / 850 Urethral (Collins) 850 / 850 Other: Meal Breakfast Lunch Percent of Meal Consumed 5% 0% Stool Size Moderate Small Stool Consistency loose soft soft formed Stool Characteristics Normal for Patient Normal for Patient Stool Color Black Brown Black # Voids 1 1 # Bowel Movements 1 1 Results - Lab Results 09/02/18 05:34 09/02/18 05:34 Most recent lab results Calcium 8.6 mg/dL (8.6-10.3) 09/02/18 05:34 - Attending Attestation I examined this patient and my medical decision-making was reviewed with the Resident Physician. I agree with the documented findings, disposition and treatment plan as described except to the extent set forth below. Pt seen and examined and in brief; 88 y o male with PMH of COPD and stage 4 CKD (baseline GFR in the 20s) admitted as a transfer from [facility] with SCr of 3.8, GFR 15. Pt is a poor historian with a history of urinary retention on flomax. Exam shows elderly male with coarse BS noted bilat. Mildly elevated SCr from baseline progressive disease vs pre-renal vs post-renal. Will obtain US of kidney. Will continue fluids po and/or iv. Avoid nephrotoxins if possible. No acute indication for [employer]ING at this time.
[2018-09-02] MEDS: Ipratropium/Albuterol Neb 3 ML IH SCH ×4 (14:27→23:57)
[2018-09-02 16:15] LABS: Bilirubin,Urine Negative (Negative); Blood,Urine Small (Negative); Clarity,Urine Clear (Clear); Color,Urine Yellow (Yellow); Glucose,Urine (UA) Normal (Normal); Ketones,Urine Negative (Negative); Leukocyte Esterase,Urine Small (Negative); Nitrite,Urine Negative (Negative); PH,Urine 5.5 pH Units (5.0-8.0); Protein,Urine 30 mg/dL (Neg-Trace); Urobilinogen,Urine Normal (Normal)
[2018-09-02 16:19] LABS: Bacteria,Urine None Seen per hpf (None-Few); Hyaline Casts,Urine None Seen per lpf (None-Few); Squamous Epithelial Cell,Urine Many per lpf (None-Few); WBC,Urine 0-3 per hpf (0-3)
[2018-09-02 16:36] LABS: RBC,Urine 0-3 per hpf (0-3)
[2018-09-02] MEDS: Mirtazapine 15 MG TABLET PO SCH (20:59)
[2018-09-03] MEDS: Ipratropium/Albuterol Neb 3 ML IH SCH ×5 (03:39→19:42)
[2018-09-03] MEDS: *HR* Heparin 5,000 UNIT/ML VIAL SQ SCH ×3 (05:26→20:46)
[2018-09-03 06:17] LABS: ABG Base Excess 4 mEq/L (-2 to 3); ABG HCO3 30 mEq/L (21-27); ABG Oxygen Saturation 94 % (95-98); ABG PCO2 53 mmHg (35-45); ABG PH 7.36 pH Units (7.32-7.45); ABG PO2 74 mmHg (85-104); ABG TCO2 32 mEq/L (20-26)
[2018-09-03 06:47] LABS: Hematocrit 25.9 % (37.5-50.1); Hemoglobin 8.4 g/dL (12.9-16.9); Mean Corpuscular HGB Conc 32.4 g/dL (31.6-35.5); Mean Corpuscular Hemoglobin 30.4 pg (28.0-33.3); Mean Corpuscular Volume 93.8 fL (83.0-100.0); Platelet Count 105 K/mcL (140-400); Red Blood Count 2.76 M/mcL (4.19-5.50); Red Cell Distribution Width 12.6 % (11.5-14.5)
[2018-09-03 06:54] LABS: Calcium 8.7 mg/dL (8.6-10.3); Magnesium 2.3 mg/dL (1.6-2.6); Potassium 4.4 mEq/L (3.5-5.1)
[2018-09-03] MEDS: Budesonide/Formoterol 160/4.5 1 PUFF INH IH SCH ×2 (07:28→19:42)
[2018-09-03 08:08] LABS: Lymphocytes # 0.1 K/mcL (0.6-4.6); Monocytes # 0.3 K/mcL (0.0-1.3); Neutrophils # 2.2 K/mcL (1.6-8.9)
[2018-09-03 08:09] LABS: Platelet Estimate Decreased (Normal)
[2018-09-03] MEDS: rOPINIRole 0.25 MG TABLET PO SCH ×2 (08:48→20:45)
[2018-09-03] MEDS: Multivit/Ca/Min/Fe/FA 1 TAB TABLET PO SCH (08:48)
[2018-09-03] MEDS: Aspirin Enteric Coated 81 MG Tablet PO SCH (08:48)
[2018-09-03] MEDS: MethylPREDNISolone 40 MG/ML VIAL IVP SCH ×2 (08:49→16:52)
[2018-09-03] MEDS: Metoprolol XL (24 HR) Succ 25 MG TAB.ER.24H PO SCH (08:49)
[2018-09-03] MEDS: Loratadine 10 MG TABLET PO SCH (08:49)
[2018-09-03] MEDS: Finasteride 5 MG TABLET PO SCH (08:49)
--- NOTE | 2018-09-03 09:02 | Nephrology Progress Note ---
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 - Initial labs: SCr 3.4, BUN 57, GFR 17 - Baseline creatinine per chart review: 2.4-2.5 - Calculated CrCl: 15 - Patient takes 0.4 of Flomax daily; reports difficulty emptying bladder for 5 months - Creatinine improving, 3.36 from 3.41 yesterday - Collins catheter was placed; >1L of urine obtained Plan: - Retroperitoneal ultrasound pending - Continue home Flomax - Renally dose medications, avoid nephrotoxins if possible Qualifiers: Qualified Code(s): N17.9 - Acute kidney failure, unspecified; N18.4 - Chronic kidney disease, stage 4 (severe) (2) Fever Current Visit: Yes Status: Acute - Patient developed fever with Tmax 102.5 - Currently afebrile at 98.3 - Unknown etiology at this time; possibly secondary to viral URI; patient endorsed cough/SOB for 4-5 days - Respiratory infection panel was positive for Entero/rhinovirus - Chest x-ray: demonstrated b/l airspace changes - Strep, and Legionella urine antigen negative - Blood and urine cultures pending Plan: - Levaquin discontinued - Continue to monitor patients clinical status Qualifiers: Qualified Code(s): R50.9 - Fever, unspecified (3) COPD (chronic obstructive pulmonary disease) Current Visit: Yes Status: Acute - Known history of COPD; dependent on 4 L of O2 Plan: - Albuterol inhaler as needed - O2 via nasal cannula; maintain SPO2 greater than 92% - DuoNeb nebs as needed Qualifiers: Qualified Code(s): J44.0 - Chronic obstructive pulmonary disease with acute lower respiratory infection (4) CKD (chronic kidney disease) stage 4, GFR 15-29 ml/min Current Visit: Yes Status: Acute - Baseline creatinine is 2.4-2.5 - Renal diet - Plan as above (5) Anemia Current Visit: No Status: Chronic - Laboratory analysis demonstrates hemoglobin of 8.4 - Patient has a known history of chronic anemia; baseline appears to be between 9 and 10 - Likely secondary to renal disease - Stable; continue to monitor Qualifiers: Qualified Code(s): N18.4 - Chronic kidney disease, stage 4 (severe); D63.1 - Anemia in chronic kidney disease (6) DVT prophylaxis Current Visit: No Status: Acute - Heparin subcutaneous Subjective Interval history: Patient was seen and examined at bedside; he states that he has an intermittent cough, but overall feels better from yesterday. Denies having any fevers or subjective chills. Catheter was placed; more than 1 L of urine was obtained from his bladder. Urology has been consulted. He currently denies having any nausea, vomiting, chest pain, shortness of breath, suprapubic pain, or abdominal pain. He has no further complaints. Objective - Vital Signs Vital signs: Vital Signs Temp Pulse Resp BP Pulse Ox 09/03/18 07:40 98.3 F 84 20 107/58 97 09/03/18 06:40 94 09/03/18 03:41 18 97 09/03/18 03:27 98.4 F 73 18 114/58 94 09/02/18 23:57 16 99 09/02/18 23:33 97.6 F 80 18 148/66 100 09/02/18 20:55 98.7 F 86 17 103/47 96 09/02/18 19:59 18 94 09/02/18 19:54 95 09/02/18 16:02 99.3 F 85 18 129/67 99 09/02/18 15:37 18 94 09/02/18 13:28 100.5 F H 09/02/18 11:22 100.1 F H 116 17 146/69 92 Intake and Output 09/02/18 09/03/18 09/03/18 23:59 07:59 15:59 Intake Total 200 / 200 0 / 0 Output Total 1100 / 1100 0 / 0 Balance -900 / -900 0 / 0 Intake: Oral 200 / 200 0 / 0 Output: Urine 100 / 100 0 / 0 Catheter 1000 / 1000 Urethral (Collins) 850 / 850 Other: Meal Lunch Percent of Meal Consumed 0% Weight 61.6 kg - General Appearance Exam: General: Alert and oriented, patient is hard of hearing. No acute distress Head: atraumatic, normocephalic Neck: Supple, trachea midline; No lymphadenopathy Respiratory: Diminished breath sounds bilaterally, bilateral rhonchi, in termittent cough Cardiovascular: RRR, S1, S2, no murmurs, rubs, gallops Abdomen: Soft, nondistended Extremities: warm, radial pulses palpable and symmetrical Neurological: No focal deficits Skin: Dry, intact - Lab 09/03/18 05:45 09/03/18 05:45 Most recent lab results ABG pH 7.36 pH Units (7.32-7.45) 09/03/18 06:14 ABG pCO2 53 mmHg (35-45) H 09/03/18 06:14 ABG pO2 74 mmHg (85-104) L 09/03/18 06:14 ABG HCO3 30 mEq/L (21-27) H 09/03/18 06:14 ABG O2 Saturation 94 % (95-98) L 09/03/18 06:14 Calcium 8.7 mg/dL (8.6-10.3) 09/03/18 05:45 Magnesium 2.3 mg/dL (1.6-2.6) 09/03/18 05:45 Consult Discharge Plan - Plan Referrals: Rosibel Castellano, SCIENCE EDUCATION PROFESSOR [Primary Care Provider] -
--- NOTE | 2018-09-03 11:08 | Internal Med Progress Note ---
Hospitalist Progress Note - Encounter Date of Encounter: 09/03/18 Time of Encounter: 11:05 - Subjective Interval History: Patient seen and examined this morning. No acute overnight events. Denies any difficulty breathing, chest pain, abdominal pain or bowel complaints. Has in place. No fever or chills nausea vomiting or diarrhea. - Exam Vitals: Temp Pulse Resp BP Pulse Ox 98.3 F 84 20 107/58 97 09/03/18 07:40 09/03/18 07:40 09/03/18 07:40 09/03/18 07:40 09/03/18 07:40 Exam: General: Alert and oriented, not in acute distress. Cardiovascular:Normal S1 & S2, No JVD. Pulse regular. Lungs: Scattered rhonchi bilaterally Abdomen:Soft, non-tender, no rigidity. in place Extremities:No deformity or swelling Neurological:Normal cognition and motor skills. Non-focal - Assessment and Plan (1) DVT prophylaxis Current Visit: No Status: Acute (2) Anemia Current Visit: No Status: Chronic (3) Acute on chronic kidney failure Current Visit: Yes Status: Acute (4) Fever Current Visit: Yes Status: Acute (5) COPD (chronic obstructive pulmonary disease) Current Visit: Yes Status: Acute (6) CKD (chronic kidney disease) stage 4, GFR 15-29 ml/min Current Visit: Yes Status: Acute - Summary of Assessment and Plan Summary of Assessment and Plan: Acute on chronic kidney failure - Likely post-renal - c/w finesteride, tamsulosin. c/w - Nephro following - Will consult urology for urinary retention. - f/u retroperitoneal US. Fever - CXR with Patchy bilateral airspace changes that could represent atelectasis or infiltrates - RIP positive for entero/Rhino virus. Will hold - urine legionella/strep ag negative - c/u Blood cultures, Urine cultures, sputum culture COPD exacerbation - Likely related to viral pneumonia - c/w steroids, bronchodilators, symbicort Anemia - Stable; likely related to CKD. continue to monitor DVT prophylaxis - c/w Subcutaneous heparin - Time Spent with Patient Total time spent is greater than 50% in coordination of care (as documented) at patient's floor/unit and/or counseling patient: Internal Medicine: Result - Labs CBC & Chem 7: 09/03/18 05:45 09/03/18 05:45 Labs: Short CBC 09/03/18 Range/Units 05:45 WBC 2.5 L (4.3-11.1) K/mcL Hgb 8.4 L (12.9-16.9) g/dL Hct 25.9 L (37.5-50.1) % Plt Count 105 L (140-400) K/mcL Neutrophils # 2.2 (1.6-8.9) K/mcL BMP 09/03/18 05:45 Sodium 138 Potassium 4.4 Chloride 101 Carbon Dioxide 27 BUN 67 H Creatinine 3.36 H Glucose 163 H Calcium 8.7 Urine 09/02/18 Range/Units 15:48 Urine Color Yellow (Yellow) Urine Clarity Clear (Clear) Urine pH 5.5 (5.0-8.0) pH Units Ur Specific Chromo 1.020 (1.010-1.025) Urine Protein 30 H (Neg-Trace) mg/dL Urine Glucose (UA) Normal (Normal) mg/dL - ABG Interpretation ABG results: ABG ABG pH 7.36 pH Units (7.32-7.45) 09/03/18 06:14 ABG pCO2 53 mmHg (35-45) H 09/03/18 06:14 ABG pO2 74 mmHg (85-104) L 09/03/18 06:14 ABG O2 Saturation 94 % (95-98) L 09/03/18 06:14 Consult Discharge Plan - Plan Referrals: Rosibel Castellano, BRIAR CUTTER [Primary Care Provider] - (2) Anemia Qualifiers: Chronic kidney disease stage: stage 4 (severe) Qualified Code(s): N18.4 - Chronic kidney disease, stage 4 (severe); D63.1 - Anemia in chronic kidney disease (3) Acute on chronic kidney failure Qualifiers: Acute renal failure type: unspecified Chronic kidney disease stage: stage 4 (severe) Qualified Code(s): N17.9 - Acute kidney failure, unspecified; N18.4 - Chronic kidney disease, stage 4 (severe) (4) Fever Qualifiers: Fever type: unspecified Qualified Code(s): R50.9 - Fever, unspecified (5) COPD (chronic obstructive pulmonary disease) Qualifiers: COPD type: COPD with acute lower respiratory infection Qualified Code(s): J44.0 - Chronic obstructive pulmonary disease with acute lower respiratory infection
--- NOTE | 2018-09-03 13:05 | Urology - Consult Note ---
<Tamie Ortez N - Last Filed: 09/03/18 14:20> Date of Encounter: 09/03/18 Time of Encounter: 12:58 - Assessment and Plan (1) Urinary retention Current Visit: Yes Status: Acute Assessment and plan: Patient is an 88-year-old male who presents with the history of an enlarged prostate and urinary retention. An indwelling Collins has been placed, and patient denies catheter discomfort. Patient wishes to resume Flomax and finasteride and continue with indwelling Collins catheter. I explained patient will need to be seen for a voiding trial after discharge. Patient is aware an indwelling Collins may be warranted chronically. Patient wishes to discuss further options for urinary retention as an outpatient with Dr. Thomson. Urology CN:[facility] Consult date: 09/03/18 Reason for consult Urology: Other (urinary retention) History of present illness: Patient is an 88-year-old male who presents with a history of acute urinary r etention. Patient states he has a history of COPD with exacerbations that occasionally bring him to the emergency department. Patient reports feeling weak, short of breath and producing excess mucus over the last several weeks. Patient states he decided to come to the emergency department at [facility] on 09/01/2018. Patient was subsequently transferred to [facility] for nephrology management due to acute renal failure. Patient states he does not routinely follow with urology, although, during his last admission, he was instructed how to self catheterize. Patient does not wish to self catheterize, as he would prefer either a medication or procedure to improve his voiding. Patient is unsure if he takes Flomax or finasteride. Patient states he experiences incomplete voids daily and has a very weak stream. Patient experiences nocturia, frequency, and post void dribbling. Patient denies a personal or known family history of prostate cancer. Renal ultrasound report was reviewed from 2014 and showed a markedly enlarged prostate. Current renal ultrasound is pending. Past Med Surg Social Fam HX - Past Medical History Medical history: COPD, diabetes, myocardial infarction Additional medical history: emphysema Psychiatric history: no psych history - Past Surgical History Surgical History: angioplasty/stent, coronary bypass (CABG) Additional surgical history: OPEN HEART. Prostate - Social History Smoking Status: Former smoker Smokeless Tobacco Status: No Alcohol use: none Drug use: none Medications and Allergies RX: Aspirin [Lo-Dose Aspirin EC] 81 mg PO DAILY 12/29/17 [History] RX: Atorvastatin [Lipitor] 40 mg PO DAILY 12/29/17 [History] RX: Budesonide/Formoterol 160/4.5 [Symbicort 160/4.5] 2 puff IH BIDR 12/29/17 [H istory] RX: Docusate [Colace] 100 mg PO DAILY 12/29/17 [History] RX: Ferrous Sulfate [Iron] 325 mg PO BID 12/29/17 [History] RX: Finasteride [Proscar] 5 mg PO DAILY 12/29/17 [History] RX: Guaifenesin [Mucinex] 600 mg PO BID 12/29/17 [History] RX: Loratadine [Allergy Relief] 10 mg PO DAILY 12/29/17 [History] RX: Mirtazapine [Remeron] 15 mg PO HS 12/29/17 [History] RX: Montelukast [Singulair] 10 mg PO DAILY 12/29/17 [History] RX: Multivit-Min/FA/Lycopen/Lutein [Centrum Silver Men Tablet] 1 tab PO DAILY 12/29/17 [History] RX: Tamsulosin [Flomax] 0.4 mg PO DAILY 12/29/17 [History] RX: rOPINIRole [Requip] 0.5 mg PO BID 12/29/17 [History] RX: Albuterol Sulfate [Albuterol Inhaler] 2 puff IH Q6H PRN 12/30/17 [History] RX: Metoprolol XL (24 HR) Succ [Toprol Xl] 12.5 mg PO DAILY 12/30/17 [History] RX: Furosemide [Lasix] 40 mg PO Q48H 04/26/18 [History] RX: Furosemide [Lasix] 20 mg PO Q48H 09/01/18 [History] Allergy/AdvReac Type Severity Reaction Status Date / Time tetracycline [Tetracycline] Allergy Hives Verified 09/01/18 16:01 Iodinated Contrast- Oral and AdvReac Pass Out Verified 09/01/18 16:02 IV Dye Review of Systems - Constitutional fatigue, weakness, no chills, no fever(s) - EENT Nose, mouth and throat: no dizziness, no headache(s), no sore throat - Cardiovascular dyspnea, no chest pain, no diaphoresis - Respiratory cough, dyspnea - Gastrointestinal no abdominal pain, no nausea, no vomiting - Genitourinary difficulty urinating, nocturia, post void dribbling, urinary frequency, urinary hesitancy, urinary incontinence, no change in urinary stream, no dysuria, no hematuria, no urinary urgency - Musculoskeletal no back pain, no muscle weakness - Integumentary no erythema, no rash - Neurological no confusion, no sensory deficit - Psychiatric no anxiety, no confusion - Hematologic/Lymphatic no easy bleeding, no easy bruising - Allergic/Immunologic no throat swelling, no wheezing Exam Initial Vital Signs Temp Pulse Resp BP Pulse Ox 99.2 F 64 18 111/53 95 09/01/18 15:02 09/01/18 15:02 09/01/18 15:02 09/01/18 15:02 09/01/18 15:02 - General physical appearance Present: well developed, no distress, no pain - Eyes Present: PERRL, normal ocular movement - ENT Present: normal nares, decreased hearing - Neck Present: no masses, trachea midline - Respiratory Absent: normal respiratory effort - Cardiovascular Cardiovascular exam IM: RRR - Abdomen Abdomen: Present: soft, non tender - Genitourinary other (Collins catheter is indwelling and draining clear urine into bedside bag) - Integumentary Present: no rash, no abnormal pigmentation - Neurologic Present: normal coordination - Musculoskeletal Present: other (Normal posture) Urology Results - Labs 09/03/18 05:45 09/03/18 05:45 Abnormal lab results WBC 2.5 K/mcL (4.3-11.1) L 09/03/18 05:45 RBC 2.76 M/mcL (4.19-5.50) L 09/03/18 05:45 Hgb 8.4 g/dL (12.9-16.9) L 09/03/18 05:45 Hct 25.9 % (37.5-50.1) L 09/03/18 05:45 Plt Count 105 K/mcL (140-400) L 09/03/18 05:45 Band Neutrophils % 10.0 % (0-4) H 09/03/18 05:45 Lymphocytes # 0.1 K/mcL (0.6-4.6) L 09/03/18 05:45 Platelet Estimate Decreased (Normal) L 09/03/18 05:45 ABG pCO2 53 mmHg (35-45) H 09/03/18 06:14 ABG pO2 74 mmHg (85-104) L 09/03/18 06:14 ABG HCO3 30 mEq/L (21-27) H 09/03/18 06:14 ABG Total CO2 32 mEq/L (20-26) H 09/03/18 06:14 ABG O2 Saturation 94 % (95-98) L 09/03/18 06:14 ABG Base Excess 4 mEq/L (-2 to 3) H 09/03/18 06:14 BUN 67 mg/dL (8-23) H 09/03/18 05:45 Creatinine 3.36 mg/dL (0.70-1.30) H 09/03/18 05:45 Est GFR ( Amer) 21 (> 60) L 09/03/18 05:45 Est GFR (Non-Af Amer) 18 (> 60) L 09/03/18 05:45 Glucose 163 mg/dL (70-105) H 09/03/18 05:45 Calculated Osmolality 309 (280-300) H 09/03/18 05:45 B-Natriuretic Peptide 606 pg/mL (Less than 100) H 09/01/18 15:35 Urine Protein 30 mg/dL (Neg-Trace) H 09/02/18 15:48 Urine Blood Small (Negative) H 09/02/18 15:48 Ur Leukocyte Esterase Small (Negative) H 09/02/18 15:48 Ur Squamous Epith Cells Many per lpf (None-Few) H 09/02/18 15:48 Ur Culture Indicated? NO. (NO) A 09/02/18 15:48 Entero/Rhino (PCR) DETECTED (Not Detect) A 09/02/18 09:15 Diabetes panel 09/03/18 Range/Units 05:45 Sodium 138 (136-145) mEq/L Potassium 4.4 (3.5-5.1) mEq/L Chloride 101 (98-107) mEq/L Carbon Dioxide 27 (23-29) mEq/L BUN 67 H (8-23) mg/dL Creatinine 3.36 H (0.70-1.30) mg/dL Glucose 163 H (70-105) mg/dL Calcium 8.7 (8.6-10.3) mg/dL Calcium panel 09/03/18 Range/Units 05:45 Calcium 8.7 (8.6-10.3) mg/dL Pituitary panel 09/03/18 Range/Units 05:45 Sodium 138 (136-145) mEq/L Potassium 4.4 (3.5-5.1) mEq/L Chloride 101 (98-107) mEq/L Carbon Dioxide 27 (23-29) mEq/L BUN 67 H (8-23) mg/dL Creatinine 3.36 H (0.70-1.30) mg/dL Glucose 163 H (70-105) mg/dL Calcium 8.7 (8.6-10.3) mg/dL Adrenal panel 09/03/18 Range/Units 05:45 Sodium 138 (136-145) mEq/L Potassium 4.4 (3.5-5.1) mEq/L Chloride 101 (98-107) mEq/L Carbon Dioxide 27 (23-29) mEq/L BUN 67 H (8-23) mg/dL Creatinine 3.36 H (0.70-1.30) mg/dL Glucose 163 H (70-105) mg/dL Calcium 8.7 (8.6-10.3) mg/dL All other labs normal. - Imaging US - kidney/bladder: pending, report reviewed (2014 report reviewed) Consult Discharge Plan - Plan Referrals: Rosibel Castellano, BOWL TURNER [Primary Care Provider] - <Conrado Thomson - Last Filed: 09/03/18 15:43> Date of Encounter: 09/03/18 - Assessment and Plan (1) Urinary retention Current Visit: Yes Status: Acute Assessment and plan: Patient was seen and examined independently. I agree with the plan as written above by Tamie Ortez. Patient will need to keep his catheter in place. Patient scheduled for ultrasound later today. We will follow along and follow serum creatinines at this time. (2) Acute renal insufficiency Current Visit: No Status: Acute Assessment and plan: We will continue to follow along serum creatinines Exam Initial Vital Signs Temp Pulse Resp BP Pulse Ox 99.2 F 64 18 111/53 95 09/01/18 15:02 09/01/18 15:02 09/01/18 15:02 09/01/18 15:02 09/01/18 15:02 Urology Results - Labs 09/03/18 05:45 09/03/18 05:45 Abnormal lab results WBC 2.5 K/mcL (4.3-11.1) L 09/03/18 05:45 RBC 2.76 M/mcL (4.19-5.50) L 09/03/18 05:45 Hgb 8.4 g/dL (12.9-16.9) L 09/03/18 05:45 Hct 25.9 % (37.5-50.1) L 09/03/18 05:45 Plt Count 105 K/mcL (140-400) L 09/03/18 05:45 Band Neutrophils % 10.0 % (0-4) H 09/03/18 05:45 Lymphocytes # 0.1 K/mcL (0.6-4.6) L 09/03/18 05:45 Platelet Estimate Decreased (Normal) L 09/03/18 05:45 ABG pCO2 53 mmHg (35-45) H 09/03/18 06:14 ABG pO2 74 mmHg (85-104) L 09/03/18 06:14 ABG HCO3 30 mEq/L (21-27) H 09/03/18 06:14 ABG Total CO2 32 mEq/L (20-26) H 09/03/18 06:14 ABG O2 Saturation 94 % (95-98) L 09/03/18 06:14 ABG Base Excess 4 mEq/L (-2 to 3) H 09/03/18 06:14 BUN 67 mg/dL (8-23) H 09/03/18 05:45 Creatinine 3.36 mg/dL (0.70-1.30) H 09/03/18 05:45 Est GFR ( Amer) 21 (> 60) L 09/03/18 05:45 Est GFR (Non-Af Amer) 18 (> 60) L 09/03/18 05:45 Glucose 163 mg/dL (70-105) H 09/03/18 05:45 Calculated Osmolality 309 (280-300) H 09/03/18 05:45 B-Natriuretic Peptide 606 pg/mL (Less than 100) H 09/01/18 15:35 Urine Protein 30 mg/dL (Neg-Trace) H 09/02/18 15:48 Urine Blood Small (Negative) H 09/02/18 15:48 Ur Leukocyte Esterase Small (Negative) H 09/02/18 15:48 Ur Squamous Epith Cells Many per lpf (None-Few) H 09/02/18 15:48 Ur Culture Indicated? NO. (NO) A 09/02/18 15:48 Entero/Rhino (PCR) DETECTED (Not Detect) A 09/02/18 09:15 Diabetes panel 09/03/18 Range/Units 05:45 Sodium 138 (136-145) mEq/L Potassium 4.4 (3.5-5.1) mEq/L Chloride 101 (98-107) mEq/L Carbon Dioxide 27 (23-29) mEq/L BUN 67 H (8-23) mg/dL Creatinine 3.36 H (0.70-1.30) mg/dL Glucose 163 H (70-105) mg/dL Calcium 8.7 (8.6-10.3) mg/dL Calcium panel 09/03/18 Range/Units 05:45 Calcium 8.7 (8.6-10.3) mg/dL Pituitary panel 09/03/18 Range/Units 05:45 Sodium 138 (136-145) mEq/L Potassium 4.4 (3.5-5.1) mEq/L Chloride 101 (98-107) mEq/L Carbon Dioxide 27 (23-29) mEq/L BUN 67 H (8-23) mg/dL Creatinine 3.36 H (0.70-1.30) mg/dL Glucose 163 H (70-105) mg/dL Calcium 8.7 (8.6-10.3) mg/dL Adrenal panel 09/03/18 Range/Units 05:45 Sodium 138 (136-145) mEq/L Potassium 4.4 (3.5-5.1) mEq/L Chloride 101 (98-107) mEq/L Carbon Dioxide 27 (23-29) mEq/L BUN 67 H (8-23) mg/dL Creatinine 3.36 H (0.70-1.30) mg/dL Glucose 163 H (70-105) mg/dL Calcium 8.7 (8.6-10.3) mg/dL All other labs normal.
[2018-09-03] MEDS: Mirtazapine 15 MG TABLET PO SCH (20:45)
[2018-09-04] MEDS: Ipratropium/Albuterol Neb 3 ML IH SCH ×7 (00:24→23:11)
[2018-09-04] MEDS: *HR* Heparin 5,000 UNIT/ML VIAL SQ SCH ×3 (05:14→20:54)
[2018-09-04] MEDS: MethylPREDNISolone 40 MG/ML VIAL IVP SCH (05:15)
[2018-09-04 06:02] LABS: Calcium 8.6 mg/dL (8.6-10.3); Potassium 3.8 mEq/L (3.5-5.1)
[2018-09-04] MEDS: Budesonide/Formoterol 160/4.5 1 PUFF INH IH SCH ×2 (07:46→19:56)
[2018-09-04] MEDS: rOPINIRole 0.25 MG TABLET PO SCH ×2 (09:05→20:54)
[2018-09-04] MEDS: Metoprolol XL (24 HR) Succ 25 MG TAB.ER.24H PO SCH (09:05)
[2018-09-04] MEDS: Aspirin Enteric Coated 81 MG Tablet PO SCH (09:05)
[2018-09-04] MEDS: Multivit/Ca/Min/Fe/FA 1 TAB TABLET PO SCH (09:06)
[2018-09-04] MEDS: Finasteride 5 MG TABLET PO SCH (09:06)
[2018-09-04] MEDS: Loratadine 10 MG TABLET PO SCH (09:06)
--- NOTE | 2018-09-04 09:32 | Urology Progress Note ---
<Tamie Mohan N - Last Filed: 09/04/18 09:29> Date of Encounter: 09/04/18 Time of Encounter: 09:10 - Assessment and Plan (1) Urinary retention Current Visit: Yes Status: Acute Assessment and plan: Patient is an 88 year old male who presents with urinary retention. Collins is in proper place and draining well. Patient wishes to continue with plan of voiding trial as an outpatient. Serum creatinine improving. Renal ultrasound stable from prior study; no hydronephrosis and enlarged prostate. Urology will follow. Progress Note Subjective: no new complaints Narrative: Patient seen and examined sitting upright in bed in no apparent distress. Patient states his breathing is less labored. Patient reports no catheter discomfort. Collins is indwelling and draining clear urine into bedside bag. Objective Initial Vital Signs Temp Pulse Resp BP Pulse Ox 99.2 F 64 18 111/53 95 09/01/18 15:02 09/01/18 15:02 09/01/18 15:02 09/01/18 15:02 09/01/18 15:02 - General physical appearance Present: well developed, no distress, no pain - Respiratory Present: normal expansion - Abdomen Present: soft, non tender - Genitourinary Urine Appearance: Present: Clear - Integumentary Present: no rash, no abnormal pigmentation - Musculoskeletal Present: normal posture - Psychiatric Present: oriented to time, oriented to person, oriented to place, speech is normal, memory intact - Labs 09/03/18 05:45 09/04/18 05:31 Diabetes panel 09/04/18 Range/Units 05:31 Sodium 138 (136-145) mEq/L Potassium 3.8 (3.5-5.1) mEq/L Chloride 102 (98-107) mEq/L Carbon Dioxide 28 (23-29) mEq/L BUN 71 H (8-23) mg/dL Creatinine 3.16 H (0.70-1.30) mg/dL Glucose 268 H (70-105) mg/dL Calcium 8.6 (8.6-10.3) mg/dL Calcium panel 09/04/18 Range/Units 05:31 Calcium 8.6 (8.6-10.3) mg/dL Pituitary panel 09/04/18 Range/Units 05:31 Sodium 138 (136-145) mEq/L Potassium 3.8 (3.5-5.1) mEq/L Chloride 102 (98-107) mEq/L Carbon Dioxide 28 (23-29) mEq/L BUN 71 H (8-23) mg/dL Creatinine 3.16 H (0.70-1.30) mg/dL Glucose 268 H (70-105) mg/dL Calcium 8.6 (8.6-10.3) mg/dL Adrenal panel 09/04/18 Range/Units 05:31 Sodium 138 (136-145) mEq/L Potassium 3.8 (3.5-5.1) mEq/L Chloride 102 (98-107) mEq/L Carbon Dioxide 28 (23-29) mEq/L BUN 71 H (8-23) mg/dL Creatinine 3.16 H (0.70-1.30) mg/dL Glucose 268 H (70-105) mg/dL Calcium 8.6 (8.6-10.3) mg/dL - Imaging US - abdomen: other (renal u/s reviewed ) Consult Discharge Plan - Plan Referrals: Rosibel Castellano, RAILROAD OPERATING ENGINEER [Primary Care Provider] - <Conrado Thomson - Last Filed: 09/04/18 11:40> Date of Encounter: 09/04/18 - Assessment and Plan (1) Urinary retention Current Visit: Yes Status: Acute Assessment and plan: Agree with the plan as written by tamie mohan. Patient was personally examined this morning. Patient's serum creatinine is very slowly improving. He is tolerating his catheter well. Patient will be scheduled for follow-up with Dr. Ye for discussion of further management of catheter. (2) Acute renal insufficiency Current Visit: No Status: Acute Objective Initial Vital Signs Temp Pulse Resp BP Pulse Ox 99.2 F 64 18 111/53 95 09/01/18 15:02 09/01/18 15:02 09/01/18 15:02 09/01/18 15:02 09/01/18 15:02 - Labs 09/03/18 05:45 09/04/18 05:31 Diabetes panel 09/04/18 Range/Units 05:31 Sodium 138 (136-145) mEq/L Potassium 3.8 (3.5-5.1) mEq/L Chloride 102 (98-107) mEq/L Carbon Dioxide 28 (23-29) mEq/L BUN 71 H (8-23) mg/dL Creatinine 3.16 H (0.70-1.30) mg/dL Glucose 268 H (70-105) mg/dL Calcium 8.6 (8.6-10.3) mg/dL Calcium panel 09/04/18 Range/Units 05:31 Calcium 8.6 (8.6-10.3) mg/dL Pituitary panel 09/04/18 Range/Units 05:31 Sodium 138 (136-145) mEq/L Potassium 3.8 (3.5-5.1) mEq/L Chloride 102 (98-107) mEq/L Carbon Dioxide 28 (23-29) mEq/L BUN 71 H (8-23) mg/dL Creatinine 3.16 H (0.70-1.30) mg/dL Glucose 268 H (70-105) mg/dL Calcium 8.6 (8.6-10.3) mg/dL Adrenal panel 09/04/18 Range/Units 05:31 Sodium 138 (136-145) mEq/L Potassium 3.8 (3.5-5.1) mEq/L Chloride 102 (98-107) mEq/L Carbon Dioxide 28 (23-29) mEq/L BUN 71 H (8-23) mg/dL Creatinine 3.16 H (0.70-1.30) mg/dL Glucose 268 H (70-105) mg/dL Calcium 8.6 (8.6-10.3) mg/dL
--- NOTE | 2018-09-04 09:48 | Nephrology Progress Note ---
Date of Encounter: 09/04/18 Time of Encounter: 09:47 - Assessment and Plan (1) Acute on chronic kidney failure Current Visit: Yes Status: Acute -RICK in the setting of CKD IV, likely secondary to obstruction from enlarged prostate - Baseline SCr per chart review: 2.4-2.5 - Creatinine improving, 3.16 from 3.36 yesterday - 1L of urine output from - Retroperitoneal U/S demonstrated enlarged prostate, no hydronephrosis - Urology recommends outpatient followup Plan: - Continue home Flomax - Renally dose medications, avoid nephrotoxins if possible Qualifiers: Acute renal failure type: unspecified Chronic kidney disease stage: stage 4 (severe) Qualified Code(s): N17.9 - Acute kidney failure, unspecified; N18.4 - Chronic kidney disease, stage 4 (severe) (2) Fever Current Visit: Yes Status: Acute - Resolved - Currently afebrile at 98.3 - Urine CX negative - Blood CX pending - Continue to monitor patients clinical status Qualifiers: Fever type: unspecified Qualified Code(s): R50.9 - Fever, unspecified (3) COPD (chronic obstructive pulmonary disease) Current Visit: Yes Status: Acute - Known history of COPD; dependent on 4 L of O2 Plan: - Albuterol inhaler as needed - O2 via nasal cannula; maintain SPO2 greater than 92% - DuoNeb nebs as needed Qualifiers: COPD type: COPD with acute lower respiratory infection Qualified Code(s): J44.0 - Chronic obstructive pulmonary disease with acute lower respiratory infection (4) CKD (chronic kidney disease) stage 4, GFR 15-29 ml/min Current Visit: Yes Status: Acute - Baseline creatinine is 2.4-2.5 - Renal diet - Plan as above (5) Anemia Current Visit: No Status: Chronic - Patient has a known history of chronic anemia; baseline appears to be between 9 - 10 - Likely secondary to renal disease - Stable; continue to monitor Qualifiers: Chronic kidney disease stage: stage 4 (severe) Qualified Code(s): N18.4 - Chronic kidney disease, stage 4 (severe); D63.1 - Anemia in chronic kidney disease (6) DVT prophylaxis Current Visit: No Status: Acute - Heparin subcutaneous Subjective Interval history: Patient was seen and examined at bedside; reports that he feels much better today. States that he still has an intermittent cough, but it is improving. Denies fever, chills, nausea, vomiting, abdominal pain, or suprapubic pain. Catheter bag observed at bedside; approximally 500 mL of clear urine is present. No further complaints at this time Objective - Vital Signs Vital signs: Vital Signs Temp Pulse Resp BP Pulse Ox 09/04/18 07:47 15 96 09/04/18 07:12 98.3 F 76 17 119/53 97 09/04/18 04:09 18 92 09/04/18 03:50 98.4 F 72 16 122/61 98 09/04/18 00:24 18 97 09/04/18 00:06 98.5 F 71 16 102/54 97 09/03/18 19:42 20 95 09/03/18 19:21 98.4 F 70 16 123/57 94 09/03/18 15:52 97.9 F 80 20 103/53 90 09/03/18 11:08 18 94 Intake and Output 09/03/18 09/04/18 09/04/18 23:59 07:59 15:59 Output Total 300 / 300 Balance -300 / -300 Output: Urine 300 / 300 Other: Weight 62.4 kg Patient Weight 09/04/18 23:59 Weight 62.4 kg - General Appearance Exam: General: Alert and oriented, patient is hard of hearing. No acute distress Head: atraumatic, normocephalic Neck: Supple, trachea midline; No lymphadenopathy Respiratory: Diminished breath sounds bilaterally, bilateral rhonchi, inte rmittent cough Cardiovascular: RRR, S1, S2, no murmurs, rubs, gallops Abdomen: Soft, nondistended Extremities: warm, radial pulses palpable and symmetrical Neurological: No focal deficits Skin: Dry, intact - Lab 09/03/18 05:45 09/04/18 05:31 Most recent lab results ABG pH 7.36 pH Units (7.32-7.45) 09/03/18 06:14 ABG pCO2 53 mmHg (35-45) H 09/03/18 06:14 ABG pO2 74 mmHg (85-104) L 09/03/18 06:14 ABG HCO3 30 mEq/L (21-27) H 09/03/18 06:14 ABG O2 Saturation 94 % (95-98) L 09/03/18 06:14 Calcium 8.6 mg/dL (8.6-10.3) 09/04/18 05:31 Magnesium 2.3 mg/dL (1.6-2.6) 09/03/18 05:45 Consult Discharge Plan - Plan Referrals: Rosibel Castellano CNP [Primary Care Provider] -
--- NOTE | 2018-09-04 10:29 | Internal Med Progress Note ---
Hospitalist Progress Note - Encounter Date of Encounter: 09/04/18 Time of Encounter: 10:28 - Subjective Interval History: Patient seen and examined this morning. No acute overnight events. Breathing improved. Denies chest pain, abdominal pain or bowel complaints. Has in place. No fever or chills nausea vomiting or diarrhea. - Exam Vitals: Temp Pulse Resp BP Pulse Ox 98.3 F 76 15 119/53 96 09/04/18 07:12 09/04/18 07:12 09/04/18 07:47 09/04/18 07:12 09/04/18 07:47 Exam: General: Alert and oriented, not in acute distress. Cardiovascular: Normal S1 & S2, No JVD. Pulse regular. Lungs: Scattered rhonchi bilaterally. Improved air entry. Abdomen: Soft, non-tender, no rigidity. in place Extremities:No deformity or swelling Neurological:Normal cognition and motor skills. Non-focal - Assessment and Plan (1) DVT prophylaxis Current Visit: No Status: Acute (2) Anemia Current Visit: No Status: Chronic (3) Acute on chronic kidney failure Current Visit: Yes Status: Acute (4) Fever Current Visit: Yes Status: Acute (5) COPD (chronic obstructive pulmonary disease) Current Visit: Yes Status: Acute (6) CKD (chronic kidney disease) stage 4, GFR 15-29 ml/min Current Visit: Yes Status: Acute - Summary of Assessment and Plan Summary of Assessment and Plan: Acute on chronic kidney failure - Likely post-renal - Improving. - c/w finesteride, tamsulosin. c/w - Nephro and urology following. - retroperitoneal US stable. No hydro. shows enlarged prostate. Fever - CXR with Patchy bilateral airspace changes that could represent atelectasis or infiltrates - RIP positive for entero/Rhino virus. Will hold antibiotics for now. - urine legionella/strep ag negative - Blood cultures, Urine cultures, sputum culture NGTD. - Likely related to viral pneumonia COPD exacerbation - Likely related to viral pneumonia - c/w steroids, bronchodilators, symbicort, singulair - Did not get bipap study done for unclear reasons. To get it done today. - c/w supplemental oxygen Anemia - Stable; likely related to CKD. continue to monitor DVT prophylaxis - c/w Subcutaneous heparin PT recommended home health. - Time Spent with Patient Total time spent is greater than 50% in coordination of care (as documented) at patient's floor/unit and/or counseling patient: Internal Medicine: Result - Labs CBC & Chem 7: 09/03/18 05:45 09/04/18 05:31 Labs: BMP 09/04/18 05:31 Sodium 138 Potassium 3.8 Chloride 102 Carbon Dioxide 28 BUN 71 H Creatinine 3.16 H Glucose 268 H Calcium 8.6 - ABG Interpretation ABG results: ABG ABG pH 7.36 pH Units (7.32-7.45) 09/03/18 06:14 ABG pCO2 53 mmHg (35-45) H 09/03/18 06:14 ABG pO2 74 mmHg (85-104) L 09/03/18 06:14 ABG O2 Saturation 94 % (95-98) L 09/03/18 06:14 - Impressions Impressions Retroperitoneum Ultrasound 09/03/18 16:00 IMPRESSION: 1. No evidence of hydronephrosis. Chronic medical renal disease is observed in each kidney, and there are several acquired simple cysts on the left. 2. Enlarged prostate gland. D/ / Lei Medina MD / Lei Medina MD Interpreting Provider: Lei Medina MD Consult Discharge Plan - Plan Referrals: Rosibel Castellano, PREMISES TECHNICIAN [Primary Care Provider] - (2) Anemia Qualifiers: Chronic kidney disease stage: stage 4 (severe) Qualified Code(s): N18.4 - Chronic kidney disease, stage 4 (severe); D63.1 - Anemia in chronic kidney disease (3) Acute on chronic kidney failure Qualifiers: Acute renal failure type: unspecified Chronic kidney disease stage: stage 4 (severe) Qualified Code(s): N17.9 - Acute kidney failure, unspecified; N18.4 - Chronic kidney disease, stage 4 (severe) (4) Fever Qualifiers: Fever type: unspecified Qualified Code(s): R50.9 - Fever, unspecified (5) COPD (chronic obstructive pulmonary disease) Qualifiers: COPD type: COPD with acute lower respiratory infection Qualified Code(s): J44.0 - Chronic obstructive pulmonary disease with acute lower respiratory infection
[2018-09-04] MEDS: Mirtazapine 15 MG TABLET PO SCH (20:54)
[2018-09-05] MEDS: Ipratropium/Albuterol Neb 3 ML IH SCH ×4 (03:53→16:12)
[2018-09-05] MEDS: *HR* Heparin 5,000 UNIT/ML VIAL SQ SCH ×2 (05:10→13:25)
[2018-09-05] MEDS: Budesonide/Formoterol 160/4.5 1 PUFF INH IH SCH (07:34)
--- NOTE | 2018-09-05 08:23 | Event Note ---
Date of Encounter: 09/05/18 Time of Encounter: 08:21 Patient agrees with continued catheter care until follow up appointment with Dr. Ye. Patient is to follow up in 2-[address] Ye at [facility] for possible voiding trial and discussion of further management.
[2018-09-05] MEDS: Metoprolol XL (24 HR) Succ 25 MG TAB.ER.24H PO SCH (08:50)
[2018-09-05] MEDS: Finasteride 5 MG TABLET PO SCH (08:50)
[2018-09-05] MEDS: Aspirin Enteric Coated 81 MG Tablet PO SCH (08:50)
[2018-09-05] MEDS: Multivit/Ca/Min/Fe/FA 1 TAB TABLET PO SCH (08:50)
[2018-09-05] MEDS: rOPINIRole 0.25 MG TABLET PO SCH (08:50)
[2018-09-05] MEDS: Loratadine 10 MG TABLET PO SCH (08:50)
[2018-09-05] MEDS ORDERED: MethylPREDNISolone 40 MG/ML VIAL IVP SCH (09:00)
--- NOTE | 2018-09-05 12:42 | Discharge Summary ---
- NOTES TO OUTPATIENT PROVIDER Notes to Outpatient Provider: Patient qualify for BiPAP and started on it. To finish 10 day course of steroids. We have Collins trial with urology as outpatient. Orders not resulted at time of discharge: Pending orders 09/02/18 07:58 Culture,Blood [BC] Stat Date of Encounter: 09/05/18 Time of Encounter: 12:39 - Discharge Diagnosis (1) DVT prophylaxis Priority: Secondary Status: Acute (2) Anemia Priority: Secondary Status: Chronic Qualifiers: Chronic kidney disease stage: stage 4 (severe) Qualified Code(s): N18.4 - Chronic kidney disease, stage 4 (severe); D63.1 - Anemia in chronic kidney disease (3) Acute on chronic kidney failure Priority: Primary Status: Acute Qualifiers: Acute renal failure type: unspecified Chronic kidney disease stage: stage 4 (severe) Qualified Code(s): N17.9 - Acute kidney failure, unspecified; N18.4 - Chronic kidney disease, stage 4 (severe) (4) Fever Priority: Primary Status: Acute Qualifiers: Fever type: unspecified Qualified Code(s): R50.9 - Fever, unspecified (5) COPD (chronic obstructive pulmonary disease) Priority: Primary Status: Acute Qualifiers: COPD type: COPD with acute lower respiratory infection Qualified Code(s): J44.0 - Chronic obstructive pulmonary disease with acute lower respiratory infection (6) CKD (chronic kidney disease) stage 4, GFR 15-29 ml/min Priority: Secondary Status: Acute (7) Chronic respiratory failure Priority: Secondary Status: Acute Qualifiers: Respiratory failure complication: hypoxia and hypercapnia Qualified Code(s): J96.11 - Chronic respiratory failure with hypoxia; J96.12 - Chronic respiratory failure with hypercapnia (8) Urinary retention Priority: Primary Status: Acute (9) PNA (pneumonia) Priority: Primary Status: Acute Qualifiers: Laterality: right Qualified Code(s): J18.9 - Pneumonia, unspecified organism Hospital course: Mr. Collazo is a 88 year old male with past history of COPD, diabetes, CAD status post CABG was transferred due to ATI on CKD. Patient had Collins catheter in place and started IVF. Renal function improved. Patient developed fever which was likely from viral pneumonia as well as respiratory infectious panel is positive for entero/rhino virus. Patient was treated for COPD exacerbation with steroids. Patient was seen by urology who recommended to continue Collins catheter on discharge and follow up as outpatient. Renal ultrasound showed enlarged prostate and was otherwise stable. Patient qualified well for BiPAP and was discharged on it with home health. Patient would finish 10 day course of steroids. Discharge discussed with: patient, nurse, social work, case management - Time Spent with Patient Total time spent providing and/or coordinating discharge services: Greater than 30 minutes (38) - Discharge Medications Prescriptions: predniSONE [PredniSONE] 40 mg PO DAILY 5 Days #5 tablet Home Medications: Aspirin [Lo-Dose Aspirin EC] 81 mg PO DAILY 12/29/17 [History] Atorvastatin [Lipitor] 40 mg PO DAILY 12/29/17 [History] Budesonide/Formoterol 160/4.5 [Symbicort 160/4.5] 2 puff IH BIDR 12/29/17 [History] Docusate [Colace] 100 mg PO DAILY 12/29/17 [History] Ferrous Sulfate [Iron] 325 mg PO BID 12/29/17 [History] Finasteride [Proscar] 5 mg PO DAILY 12/29/17 [History] Guaifenesin [Mucinex] 600 mg PO BID 12/29/17 [History] Loratadine [Allergy Relief] 10 mg PO DAILY 12/29/17 [History] Mirtazapine [Remeron] 15 mg PO HS 12/29/17 [History] Montelukast [Singulair] 10 mg PO DAILY 12/29/17 [History] Multivit-Min/FA/Lycopen/Lutein [Centrum Silver Men Tablet] 1 tab PO DAILY 12/29/17 [History] Tamsulosin [Flomax] 0.4 mg PO DAILY 12/29/17 [History] rOPINIRole [Requip] 0.5 mg PO BID 12/29/17 [History] Albuterol Sulfate [Albuterol Inhaler] 2 puff IH Q6H PRN 12/30/17 [History] Metoprolol XL (24 HR) Succ [Toprol Xl] 12.5 mg PO DAILY 12/30/17 [History] Furosemide [Lasix] 40 mg PO Q48H 04/26/18 [History] Furosemide [Lasix] 20 mg PO Q48H 09/01/18 [History] predniSONE [PredniSONE] 40 mg PO DAILY 5 Days #5 tablet 09/05/18 [Rx] Allergies/Adverse Reactions: Allergy/AdvReac Type Severity Reaction Status Date / Time tetracycline [Tetracycline] Allergy Hives Verified 09/01/18 16:01 Iodinated Contrast- Oral and AdvReac Pass Out Verified 09/01/18 16:02 IV Dye Date of admission: 09/02/18 17:19 Primary care physician: NATALYA Isaac Consults: 09/01/18 15:11 Consult to Nephrology [CONS] Routine Consulting Provider: Kidney Roxanna/JOAO/JULY/NICOLÁS Reason for Consult: Renal failure Call Completed: Yes 09/01/18 16:34 Consult to Nutrition [CONS] Routine Comment: Consulting Provider: NUTRITION Reason for Dietary Consult: MST Score 09/02/18 11:50 Consult to Occupational Therapy [CONS] Routine Comment: Evaluate, develop and implement POC Reason for Consult: PNA, deconditioning Does patient have active BEDREST order?: No Is patient medically & hemodynamically stable?: Yes Consult to Physical Therapy [CONS] Routine Comment: Evaluate, develop and implement POC Reason for Consult: PNA, deconditioning Does patient have active BEDREST order?: No Is patient medically & hemodynamically stable?: Yes 09/03/18 11:14 Consult to Urology [CONS] Routine Consulting Provider: Urology Roxanna Reason for Consult: urinary retention Call Completed: Yes Discharging clinician: Rosmery Yo Constitutional Vitals: Temp Pulse Resp BP Pulse Ox 98.5 F 71 18 124/65 92 09/05/18 10:51 09/05/18 10:51 09/05/18 11:03 09/05/18 10:51 09/05/18 11:03 General appearance: Present: no acute distress Exam: General: Alert and oriented, not in acute distress. Cardiovascular: Normal S1 & S2, No JVD. Pulse regular. Lungs: CTAB. Improved air entry. Abdomen: Soft, non-tender, no rigidity. Collins in place Extremities:No deformity or swelling Neurological: Normal cognition and motor skills. Non-focal - Patient Status Disposition: Home Health Service Condition: Fair - Discharge Instructions Follow Up With: Rosibel Castellano CNP [Primary Care Provider] -
--- NOTE | 2018-09-05 12:49 | Physician Discharge Referral ---
Home Health/Hosp Referral Info Transfer to: Home Health - Diagnosis (1) DVT prophylaxis Status: Acute (2) Anemia Status: Chronic (3) Acute on chronic kidney failure Status: Acute (4) Fever Status: Acute (5) COPD (chronic obstructive pulmonary disease) Status: Acute (6) CKD (chronic kidney disease) stage 4, GFR 15-29 ml/min Status: Acute (7) Chronic respiratory failure Status: Acute (8) Urinary retention Status: Acute (9) PNA (pneumonia) Status: Acute - Respiratory Orders Smoking Cessation: Smoking cessation has been advised. For more information, call the [place] Tobacco Quit Line at 0-882-PGZO-NOW. - Services Needed Following services are medically necessary services: Nursing, Physical Therapy - Transfer Medications Prescriptions: predniSONE [PredniSONE] 40 mg PO DAILY 5 Days #5 tablet Home Medications: Aspirin [Lo-Dose Aspirin EC] 81 mg PO DAILY 12/29/17 [History] Atorvastatin [Lipitor] 40 mg PO DAILY 12/29/17 [History] Budesonide/Formoterol 160/4.5 [Symbicort 160/4.5] 2 puff IH BIDR 12/29/17 [History] Docusate [Colace] 100 mg PO DAILY 12/29/17 [History] Ferrous Sulfate [Iron] 325 mg PO BID 12/29/17 [History] Finasteride [Proscar] 5 mg PO DAILY 12/29/17 [History] Guaifenesin [Mucinex] 600 mg PO BID 12/29/17 [History] Loratadine [Allergy Relief] 10 mg PO DAILY 12/29/17 [History] Mirtazapine [Remeron] 15 mg PO HS 12/29/17 [History] Montelukast [Singulair] 10 mg PO DAILY 12/29/17 [History] Multivit-Min/FA/Lycopen/Lutein [Centrum Silver Men Tablet] 1 tab PO DAILY 12/29/17 [History] Tamsulosin [Flomax] 0.4 mg PO DAILY 12/29/17 [History] rOPINIRole [Requip] 0.5 mg PO BID 12/29/17 [History] Albuterol Sulfate [Albuterol Inhaler] 2 puff IH Q6H PRN 12/30/17 [History] Metoprolol XL (24 HR) Succ [Toprol Xl] 12.5 mg PO DAILY 12/30/17 [History] Furosemide [Lasix] 40 mg PO Q48H 04/26/18 [History] Furosemide [Lasix] 20 mg PO Q48H 09/01/18 [History] predniSONE [PredniSONE] 40 mg PO DAILY 5 Days #5 tablet 09/05/18 [Rx] Allergies/Adverse Reactions: Allergy/AdvReac Type Severity Reaction Status Date / Time tetracycline [Tetracycline] Allergy Hives Verified 09/01/18 16:01 Iodinated Contrast- Oral and AdvReac Pass Out Verified 09/01/18 16:02 IV Dye Certification: Further, I certify that my clinical findings support that this patient is homebound (i.e. absences from home require considerable and taxing effort and are for medical reasons or christianity services or infrequently or short duration when for other reasons) because: Homebound Reason: Patient requires assistance of a person or device to safely leave home Attestation: My signature below is to certify that this patient is under my care and that I, or nurse practitioner, or a physician's wardrobe assistant working with me, has a [id number] encounter with this patient.
--- NOTE | 2018-09-05 13:38 | Nephrology Progress Note ---
Date of Encounter: 09/05/18 Time of Encounter: 14:36 - Assessment and Plan (1) Acute on chronic kidney failure Current Visit: Yes Status: Acute -RICK in the setting of CKD IV, likely secondary to obstruction from enlarged prostate - Baseline SCr per chart review: 2.4-2.5 - Creatinine improving; 3.16 - Urine output (): 650 mL - Urology recommends outpatient follow-up in 2-[address] Ye Plan: - Continue home Flomax - Renally dose medications, avoid nephrotoxins if possible Qualifiers: Acute renal failure type: unspecified Chronic kidney disease stage: stage 4 (severe) Qualified Code(s): N17.9 - Acute kidney failure, unspecified; N18.4 - Chronic kidney disease, stage 4 (severe) (2) Fever Current Visit: Yes Status: Acute - Resolved - Currently afebrile at 98.5 - Urine CX negative - Continue to monitor patients clinical status Qualifiers: Fever type: unspecified Qualified Code(s): R50.9 - Fever, unspecified (3) COPD (chronic obstructive pulmonary disease) Current Visit: Yes Status: Acute - Known history of COPD; dependent on 4 L of O2 Plan: - Albuterol inhaler as needed - O2 via nasal cannula; maintain SPO2 greater than 92% - DuoNeb nebs as needed Qualifiers: COPD type: COPD with acute lower respiratory infection Qualified Code(s): J44.0 - Chronic obstructive pulmonary disease with acute lower respiratory infection (4) CKD (chronic kidney disease) stage 4, GFR 15-29 ml/min Current Visit: Yes Status: Acute - Baseline creatinine is 2.4-2.5 - Renal diet - Plan as above (5) Anemia Current Visit: No Status: Chronic - Patient has a known history of chronic anemia; baseline appears to be between 9 - 10 - Likely secondary to renal disease - Stable; continue to monitor Qualifiers: Chronic kidney disease stage: stage 4 (severe) Qualified Code(s): N18.4 - Chronic kidney disease, stage 4 (severe); D63.1 - Anemia in chronic kidney disease (6) DVT prophylaxis Current Visit: No Status: Acute - Heparin subcutaneous Subjective Interval history: Patient was seen and examined at bedside; reports that he feels well today. endorsed some mild shortness of breath in the morning, but this has since improved. Denies fever, chills, nausea, vomiting, abdominal pain, or suprapubic pain. No further complaints at this time Objective - Vital Signs Vital signs: Vital Signs Temp Pulse Resp BP Pulse Ox 09/05/18 11:03 18 92 09/05/18 10:51 98.5 F 71 17 124/65 93 09/05/18 07:52 98.4 F 101 17 133/52 93 09/05/18 07:34 16 94 09/05/18 03:54 19 97 09/05/18 03:45 98.3 F 69 17 126/61 97 09/04/18 23:41 97.5 F L 72 20 120/72 100 09/04/18 23:12 31 97 09/04/18 19:56 16 100 09/04/18 18:53 98.3 F 68 19 114/47 98 09/04/18 15:59 97.8 F 67 15 128/64 93 09/04/18 15:51 18 96 Intake and Output 09/04/18 09/05/18 09/05/18 23:59 07:59 15:59 Intake Total 120 / 120 Output Total 350 / 350 350 / 350 Balance -350 / -350 -350 / -350 120 / 120 Intake: Oral 120 / 120 Output: Catheter 350 / 350 350 / 350 Other: Meal Breakfast Percent of Meal Consumed 100% - General Appearance Exam: General: Alert and oriented, patient is hard of hearing. No acute distress Head: atraumatic, normocephalic Neck: Supple, trachea midline; No lymphadenopathy Respiratory: Diminished breath sounds bilaterally, bibasilar crackles Cardiovascular: RRR, S1, S2, no murmurs, rubs, gallops Abdomen: Soft, nondistended Extremities: warm, radial pulses palpable and symmetrical Neurological: No focal deficits Skin: Dry, intact - Lab 09/03/18 05:45 09/04/18 05:31 Most recent lab results ABG pH 7.36 pH Units (7.32-7.45) 09/03/18 06:14 ABG pCO2 53 mmHg (35-45) H 09/03/18 06:14 ABG pO2 74 mmHg (85-104) L 09/03/18 06:14 ABG HCO3 30 mEq/L (21-27) H 09/03/18 06:14 ABG O2 Saturation 94 % (95-98) L 09/03/18 06:14 Calcium 8.6 mg/dL (8.6-10.3) 09/04/18 05:31 Magnesium 2.3 mg/dL (1.6-2.6) 09/03/18 05:45 Consult Discharge Plan - Plan Instructions: Prednisone (By mouth), Catheter Placement and Care (DC), Catheter Placement and Care (GEN) Referrals: Rosibel Castellano CNP [Primary Care Provider] - 09/19/18 2:00 pm (Please follow up as schedule...) Dariel Ye MD [Partnered Physician] - 09/25/18 10:15 am (Please follow up as schedule....) Prescriptions: predniSONE [PredniSONE] 40 mg PO DAILY 5 Days #5 tablet
[2018-09-05 15:47] VITALS: BP 137/62
[2018-09-06] MEDS ORDERED: predniSONE 20 MG TABLET PO SCH (09:00)
== END 2018-09-05 17:46 | disposition home health service (06) | DRG 682 ==
LOC: 2ANU → SUATTDRO 14:30
PROVIDERS: ADMIT Hospitalist; ATTEND Internal Medicine

== ENCOUNTER 2018-11-06 13:02 | Observation (INO) ==
--- NOTE | 2018-11-06 13:35 | Emergency Department Note ---
Disposition Clinical Impression: COPD (chronic obstructive pulmonary disease) with emphysema Qualifiers: Emphysema type: unspecified Qualified Code(s): J43.9 - Emphysema, unspecified Disposition: Admitted As Inpatient Condition: Undetermined Referrals: Rosibel Castellano CNP [Primary Care Provider] - Forms: ED Satisfaction Letter Time of Disposition: 16:30 General Adult HPI - General Chief complaint: ED Nausea/Vomiting/Diarrhea Stated complaint: congestion/Vomiting/trouble urinating Time Seen by Provider: 11/06/18 13:03 Source: patient Mode of arrival: ambulatory Limitations: no limitations Nursing Notes Reviewed: Yes Vital Signs Reviewed: Yes - History of Present Illness HPI Narrative: The patient is an 88-year-old male presenting to [facility] ED for one week history of increasing dyspnea and weakness. The patient's daughter is in the room acting as a co-historian. Patient's daughter identifies herself upon introduction as the patient's power of personal injury attorney. Patient's daughter states that the patient has past medical history of COPD as well as recurrent pneumonia. The patient was seen 3 days ago by his family physician and was placed on Levaquin as an outpatient for the management of his breathing difficulties-is unknown at this time if any imaging was completed and what specific diagnosis was made at that time. Upon initial examination patient is reclining in hospital bed he is awake, alert, engaged to conversation, has difficulty answering questions appropriately-likely due to hearing difficulties as well as history of dementia. Patient is otherwise pleasant, conversational, states that he feels like "everything is falling apart." Patient states he has been very weak over the past week and has had a great deal of chest congestion associated with cough productive of a thick white sputum. Patient's daughter states the patient has been too weak to catheterize himself lately that this was accomplished by the patient's son-in-law earlier today. Patient currently denies pain were-especially chest pain, he admits to di fficulty breathing and weakness. Patient's daughter states that patient has been complaining of abdominal pain, nausea, vomiting, weakness, leg swelling, and that he has been having difficulty with ambulation. The patient's daughter denies hemoptysis or hematuria. Onset (ago): week(s) Location: abdomen Pain Scale: 0 Consistency: Worsening Improves with: nothing Associated symptoms: Reports: cough, nausea/vomiting, shortness of breath, weakness. Denies: fever/chills - Related Data Home Medications Medication Instructions Recorded Confirmed Aspirin [Lo-Dose Aspirin EC] 81 mg PO DAILY 12/29/17 09/01/18 Atorvastatin [Lipitor] 40 mg PO DAILY 12/29/17 09/01/18 Budesonide/Formoterol 160/4.5 2 puff IH BIDR 12/29/17 09/01/18 [Symbicort 160/4.5] Docusate [Colace] 100 mg PO DAILY 12/29/17 09/01/18 Ferrous Sulfate [Iron] 325 mg PO BID 12/29/17 09/01/18 Finasteride [Proscar] 5 mg PO DAILY 12/29/17 09/01/18 Guaifenesin [Mucinex] 600 mg PO BID 12/29/17 09/01/18 Loratadine [Allergy Relief] 10 mg PO DAILY 12/29/17 09/01/18 Mirtazapine [Remeron] 15 mg PO HS 12/29/17 09/01/18 Montelukast [Singulair] 10 mg PO DAILY 12/29/17 09/01/18 Multivit-Min/FA/Lycopen/Lutein 1 tab PO DAILY 12/29/17 09/01/18 [Centrum Silver Men Tablet] Tamsulosin [Flomax] 0.4 mg PO DAILY 12/29/17 09/01/18 rOPINIRole [Requip] 0.5 mg PO BID 12/29/17 09/01/18 Albuterol Sulfate [Albuterol 2 puff IH Q6H PRN 12/30/17 09/01/18 Inhaler] Metoprolol XL (24 HR) Succ [Toprol 12.5 mg PO DAILY 12/30/17 09/01/18 Xl] Furosemide [Lasix] 40 mg PO Q48H 04/26/18 09/01/18 Furosemide [Lasix] 20 mg PO Q48H 09/01/18 09/01/18 Previous Rx's Medication Instructions Recorded predniSONE [PredniSONE] 20 mg PO DAILY #20 tablet 10/04/18 Allergies Allergy/AdvReac Type Severity Reaction Status Date / Time tetracycline [Tetracycline] Allergy Hives Verified 10/04/18 17:11 Iodinated Contrast- Oral and AdvReac Pass Out Verified 10/04/18 17:11 IV Dye All systems ED: reviewed and negative except as stated. Review of Systems: As Per HPI Past Medical History - Past Medical History Source: patient, obtained from family Medical history: Reports: COPD, myocardial infarction Surgical history: Reports: angioplasty/stent, coronary bypass (CABG) Psychiatric history: Reports: no psych history - Social History Smoking Status: Former smoker Smokeless Tobacco Status: No Alcohol use: Reports: none Drug use: Reports: none Physical Exam - General Limitations: no limitations General appearance: alert, in no apparent distress - Head Head exam: atraumatic, normocephalic, normal inspection - Eye Eye exam: Present: normal appearance, PERRL, EOMI. Absent: scleral icterus - Neck Neck exam: Present: normal inspection, trachea midline - Chest Chest inspection: Present: normal inspection, symmetric chest wall rise - Respiratory Respiratory exam: Present: respiratory distress (Patient appears to be in mild respiratory distress with use of accessory muscles of respiration.), accessory muscle use. Absent: wheezes, stridor, prolonged expiratory phase - Expanded Respiratory Exam Location: rhonchi: Left, Right, Upper, Lower - Cardiovascular Cardiovascular exam: Present: normal rhythm, tachycardia, normal heart sounds, +S1, +S2. Absent: systolic murmur, diastolic murmur, JVD, +S3, +S4 - Abdominal Exam Abdominal exam: Present: soft, tenderness, normal bowel sounds. Absent: distention, guarding, rebound, rigidity Abdominal tenderness: Present: diffuse, moderate - Extremities Exam Extremities exam: Present: pedal edema (There is 3+ pitting edema noticed in bilateral lower extremities patient's feet up into his knee. Otherwise dorsalis pedis pulses are intact and strong. ) - Neurological Exam Neurological exam: Present: alert, other (Patient appears to be mildly confused ) - Psychiatric Psychiatric exam: Present: normal affect, normal mood - Skin Skin exam: Present: warm, dry, intact, normal color. Absent: cyanosis, diaphoresis, pallor, mottled Course Course Narrative: CBC, BMP, LFTs, troponin, lactic acid, blood cultures, urinalysis and influenza antigen, EKG/old EKG, 2 view chest x-ray will be performed in order to assess for potential underlying pathology. Vital Signs Temperature 98.6 F 11/06/18 13:04 Pulse Rate 85 11/06/18 13:04 Respiratory Rate 22 01/30/19 13:04 Blood Pressure 137/75 11/06/18 13:04 O2 Sat by Pulse Oximetry 99 11/06/18 13:04 Temperature 98.6 F 11/06/18 13:04 Pulse Rate 105 11/06/18 16:46 Respiratory Rate 22 11/06/18 16:46 Blood Pressure 107/61 11/06/18 16:46 O2 Sat by Pulse Oximetry 98 11/06/18 16:46 Oxygen Delivery Oxygen Delivery Nasal Cannula Medical Decision Making - MDM Narrative Medical decision making narrative: Imaging results negative for acute pathology. Patient has elevated creatinine consistent with his history of chronic kidney disease. Troponin found to be 0.07. There are no acute abnormalities noted on his EKG. At the request of Hospitalist Dr. Bridges, we will start patient on Heprin gtt at this time. Patient will be admitted to hospitalist medicine service for chest pain work up/ACS rule out as well as concern for NSTEMI. Admission planning discussed at length with the patient and patient's daughter and both verbalizes her understanding and agreement with this plan. Patient is hemodynamically stable at time of admission. - Lab Data Lab results reviewed: Yes I reviewed the patient's lab results. Result diagrams: 11/06/18 13:41 11/06/18 13:41 Lab Results 11/06/18 11/06/18 11/06/18 Range/Units 13:41 13:41 13:41 WBC 9.9 (4.3-11.1) K/mcL RBC 3.62 L (4.19-5.50) M/mcL Hgb 11.0 L (12.9-16.9) g/dL Hct 36.4 L (37.5-50.1) % MCV 100.6 H (83.0-100.0) fL MCH 30.4 (28.0-33.3) pg MCHC 30.2 L (31.6-35.5) g/dL RDW 14.2 (11.5-14.5) % Plt Count 142 (140-400) K/mcL MPV 10.1 (9.4-12.4) fL Immature Gran % 0.8 (0-4) % Seg Neutrophils % 83.5 % Lymphocytes % 6.0 % Monocytes % 7.1 % Eosinophils % 2.2 % Basophils % 0.4 % Neutrophils # 8.3 (1.6-8.9) K/mcL Lymphocytes # 0.6 (0.6-4.6) K/mcL Monocytes # 0.7 (0.0-1.3) K/mcL Eosinophils # 0.2 (0.0-0.6) K/mcL Basophils # 0.0 (0.0-0.2) K/mcL Sodium 142 (136-145) mEq/L Potassium 4.7 (3.5-5.1) mEq/L Chloride 98 (98-107) mEq/L Carbon Dioxide 35 H (23-29) mEq/L BUN 51 H (8-23) mg/dL Creatinine 2.68 H (0.70-1.30) mg/dL Est GFR ( Amer) 28 L (> 60) Est GFR (Non-Af Amer) 23 L (> 60) BUN/Creatinine Ratio 19 (6-26) Glucose 109 H (70-105) mg/dL Calculated Osmolality 308 H (280-300) Lactic Acid 0.9 (0.5-2.2) mmol/L Calcium 9.4 (8.6-10.3) mg/dL Troponin I 0.07 H* (< 0.04) ng/mL Urine Color (Yellow) Urine Clarity (Clear) Urine pH (5.0-8.0) pH Units Ur Specific [place] (1.010-1.025) Urine Protein (Neg-Trace) mg/dL Urine Glucose (UA) (Normal) mg/dL Urine Ketones (Negative) mg/dL Urine Blood (Negative) Urine Nitrite (Negative) Urine Bilirubin (Negative) Urine Urobilinogen (Normal) mg/dL Ur Leukocyte Esterase (Negative) 11/06/18 Range/Units 14:08 WBC (4.3-11.1) K/mcL RBC (4.19-5.50) M/mcL Hgb (12.9-16.9) g/dL Hct (37.5-50.1) % MCV (83.0-100.0) fL MCH (28.0-33.3) pg MCHC (31.6-35.5) g/dL RDW (11.5-14.5) % Plt Count (140-400) K/mcL MPV (9.4-12.4) fL Immature Gran % (0-4) % Seg Neutrophils % % Lymphocytes % % Monocytes % % Eosinophils % % Basophils % % Neutrophils # (1.6-8.9) K/mcL Lymphocytes # (0.6-4.6) K/mcL Monocytes # (0.0-1.3) K/mcL Eosinophils # (0.0-0.6) K/mcL Basophils # (0.0-0.2) K/mcL Sodium (136-145) mEq/L Potassium (3.5-5.1) mEq/L Chloride (98-107) mEq/L Carbon Dioxide (23-29) mEq/L BUN (8-23) mg/dL Creatinine (0.70-1.30) mg/dL Est GFR ( Amer) (> 60) Est GFR (Non-Af Amer) (> 60) BUN/Creatinine Ratio (6-26) Glucose (70-105) mg/dL Calculated Osmolality (280-300) Lactic Acid (0.5-2.2) mmol/L Calcium (8.6-10.3) mg/dL Troponin I (< 0.04) ng/mL Urine Color Yellow (Yellow) Urine Clarity Clear (Clear) Urine pH 6.5 (5.0-8.0) pH Units Ur Specific [place] 1.005 L (1.010-1.025) Urine Protein Negative (Neg-Trace) mg/dL Urine Glucose (UA) Normal (Normal) mg/dL Urine Ketones Negative (Negative) mg/dL Urine Blood Negative (Negative) Urine Nitrite Negative (Negative) Urine Bilirubin Negative (Negative) Urine Urobilinogen Normal (Normal) mg/dL Ur Leukocyte Esterase Negative (Negative) - Radiology Data Radiology results reviewed: Yes I reviewed the patient's radiology results. Chest X-Ray 11/06/18 13:21 IMPRESSION: No evidence for acute cardiopulmonary process. D/ / 11/06/2018 15:21:42 Giles Ramey MD / bcarter Interpreting Provider: Giles Ramey MD - EKG Data EKG #1 EKG attestation: Yes I reviewed and interpreted this EKG. EKG results narrative: Patient EKG shows a sinus tachycardia with a heart rate 127 bpm SD interval of 150 ms, QR christianity of 105 ms, QT/QTc interval 313/455 ms respectively. There are no significant ST segment elevations, depressions, there are no abnormal T-wave inversions, pathologic Q's, or any other signs of acute ischemic change. There is one noted premature ventricular response noted on EKG read out. This EKG performed today is generally consistent with prior EKG performed on 04/25/2018.
--- NOTE | 2018-11-06 13:43 | Emergency Department Note ---
Disposition Clinical Impression: COPD (chronic obstructive pulmonary disease) with emphysema Qualifiers: Emphysema type: unspecified Qualified Code(s): J43.9 - Emphysema, unspecified Disposition: Still a Patient Forms: ED Satisfaction Letter General Adult HPI - General Chief complaint: ED Nausea/Vomiting/Diarrhea Stated complaint: congestion/Vomiting/trouble urinating Time Seen by Provider: 11/06/18 13:03 Source: patient Mode of arrival: ambulatory Limitations: no limitations Nursing Notes Reviewed: Yes Vital Signs Reviewed: Yes - History of Present Illness HPI Narrative: Attestation note: Patient was seen with the emergency medicine resident/nurse practitioner/physician assistant paralegal/transitional resident/medical student: Dr. ALINE CRAWFORD I have personally performed a face to face evaluation on this patient. I have reviewed and agree with history and physical examination patient management and disposition. Briefly the salient points of the case are as follows: 88-year-old male history of COPD home O2 dependent presents the ER after being on Levaquin a few days for "suspected URI". Patient was also treated for what appears to be gout a few days before that. He is tachycardic at 135 dehydrated week. Unclear if he had fevers and he has difficulty urinating although he does straight catheter himself daily. Patient's physical exam showed bilateral rhonchi without rales he did have bilateral pitting edema up to the mid tibial area. Per his daughter this is new for him. Patient had an EKG which showed nonspecific ST-T changes no acute changes. Screening labs breathing treatment chest x-ray and urinalysis are all pending. Admission anticipated. Disposition pending Pain Scale: 0 - Related Data Home Medications Medication Instructions Recorded Confirmed Aspirin [Lo-Dose Aspirin EC] 81 mg PO DAILY 12/29/17 09/01/18 Atorvastatin [Lipitor] 40 mg PO DAILY 12/29/17 09/01/18 Budesonide/Formoterol 160/4.5 2 puff IH BIDR 12/29/17 09/01/18 [Symbicort 160/4.5] Docusate [Colace] 100 mg PO DAILY 12/29/17 09/01/18 Ferrous Sulfate [Iron] 325 mg PO BID 12/29/17 09/01/18 Finasteride [Proscar] 5 mg PO DAILY 12/29/17 09/01/18 Guaifenesin [Mucinex] 600 mg PO BID 12/29/17 09/01/18 Loratadine [Allergy Relief] 10 mg PO DAILY 12/29/17 09/01/18 Mirtazapine [Remeron] 15 mg PO HS 12/29/17 09/01/18 Montelukast [Singulair] 10 mg PO DAILY 12/29/17 09/01/18 Multivit-Min/FA/Lycopen/Lutein 1 tab PO DAILY 12/29/17 09/01/18 [Centrum Silver Men Tablet] Tamsulosin [Flomax] 0.4 mg PO DAILY 12/29/17 09/01/18 rOPINIRole [Requip] 0.5 mg PO BID 12/29/17 09/01/18 Albuterol Sulfate [Albuterol 2 puff IH Q6H PRN 12/30/17 09/01/18 Inhaler] Metoprolol XL (24 HR) Succ [Toprol 12.5 mg PO DAILY 12/30/17 09/01/18 Xl] Furosemide [Lasix] 40 mg PO Q48H 04/26/18 09/01/18 Furosemide [Lasix] 20 mg PO Q48H 09/01/18 09/01/18 Previous Rx's Medication Instructions Recorded predniSONE [PredniSONE] 20 mg PO DAILY #20 tablet 10/04/18 Allergies Allergy/AdvReac Type Severity Reaction Status Date / Time tetracycline [Tetracycline] Allergy Hives Verified 10/04/18 17:11 Iodinated Contrast- Oral and AdvReac Pass Out Verified 10/04/18 17:11 IV Dye Past Medical History - Past Medical History Medical history: Reports: COPD, myocardial infarction Surgical history: Reports: angioplasty/stent, coronary bypass (CABG) Psychiatric history: Reports: no psych history - Social History Smoking Status: Former smoker Smokeless Tobacco Status: No Alcohol use: Reports: none Drug use: Reports: none Physical Exam - General Limitations: no limitations General appearance: alert, in no apparent distress Course Vital Signs Temperature 98.6 F 11/06/18 13:04 Pulse Rate 85 11/06/18 13:04 Respiratory Rate 22 11/06/18 13:04 Blood Pressure 137/75 11/06/18 13:04 O2 Sat by Pulse Oximetry 99 11/06/18 13:04 Temperature 98.6 F 11/06/18 13:04 Pulse Rate 85 11/06/18 13:04 Respiratory Rate 22 11/06/18 13:04 Blood Pressure 137/75 11/06/18 13:04 O2 Sat by Pulse Oximetry 99 11/06/18 13:04 Oxygen Delivery Oxygen Delivery Nasal Cannula
[2018-11-06 14:06] LABS: Basophils % 0.4 %; Eosinophils # 0.2 K/mcL (0.0-0.6); Eosinophils % 2.2 %; Hematocrit 36.4 % (37.5-50.1); Immature Granulocytes % 0.8 % (0-4); Lymphocytes # 0.6 K/mcL (0.6-4.6); Mean Corpuscular HGB Conc 30.2 g/dL (31.6-35.5); Mean Corpuscular Hemoglobin 30.4 pg (28.0-33.3); Mean Corpuscular Volume 100.6 fL (83.0-100.0); Mean Platelet Volume 10.1 fL (9.4-12.4); Monocytes # 0.7 K/mcL (0.0-1.3); Monocytes % 7.1 %; Neutrophils # 8.3 K/mcL (1.6-8.9); Platelet Count 142 K/mcL (140-400); Red Blood Count 3.62 M/mcL (4.19-5.50); Red Cell Distribution Width 14.2 % (11.5-14.5); Segmented Neutrophils % 83.5 %
[2018-11-06 14:17] LABS: Calcium 9.4 mg/dL (8.6-10.3); Potassium 4.7 mEq/L (3.5-5.1)
[2018-11-06 14:19] LABS: Troponin I 0.07 ng/mL (< 0.04)
[2018-11-06 14:20] LABS: Bilirubin,Urine Negative (Negative); Blood,Urine Negative (Negative); Clarity,Urine Clear (Clear); Color,Urine Yellow (Yellow); Glucose,Urine (UA) Normal (Normal); Ketones,Urine Negative (Negative); Leukocyte Esterase,Urine Negative (Negative); Nitrite,Urine Negative (Negative); PH,Urine 6.5 pH Units (5.0-8.0); Protein,Urine Negative (Neg-Trace); Specific Gravity,Urine 1.005 (1.010-1.025); Urobilinogen,Urine Normal (Normal)
[2018-11-06] MEDS ORDERED: Ipratropium/Albuterol Neb 3 ML IH ONE (16:09)
[2018-11-06] MEDS ORDERED: *HR* Enoxaparin 80 MG/0.8 ML SYRINGE SQ STA (16:42)
[2018-11-06] MEDS ORDERED: *HR* Heparin 5,000 UNIT/ML VIAL IVP ONE (16:51)
[2018-11-06] MEDS ORDERED: *HR* Heparin 5,000 UNIT/ML VIAL IVP PRN ×2 (16:51)
[2018-11-06] MEDS ORDERED: Heparin 25,000 UNIT/500 ML D5W 25,000 UNIT/500 ML BAG IVC SCH (17:00)
[2018-11-06] MEDS ORDERED: Naloxone 0.4 MG/ML INJ IVP PRN (17:16)
[2018-11-06 17:33] LABS: Hematocrit 35.4 % (37.5-50.1); Hemoglobin 10.9 g/dL (12.9-16.9); Mean Corpuscular HGB Conc 30.8 g/dL (31.6-35.5); Mean Corpuscular Hemoglobin 30.8 pg (28.0-33.3); Mean Platelet Volume 10.1 fL (9.4-12.4); Platelet Count 142 K/mcL (140-400); Red Blood Count 3.54 M/mcL (4.19-5.50); Red Cell Distribution Width 14.2 % (11.5-14.5)
[2018-11-06 17:39] LABS: INR 1.1; Prothrombin Time 11.9 Seconds (9.4-12.1)
--- NOTE | 2018-11-06 17:48 | Internal Med History&Physical ---
Date of Encounter: 11/06/18 Time of Encounter: 16:50 Internal Medicine - H&P: HPI Chief complaint: Chest congestion Admitted From: Home Plans for Post Hospital Care: Home History of present illness: Mr. Collazo is a 88 year old male presented to ER for increased cough, chest congestion, chest pain. Past medical history is significant for CAD S/P CABG 4 years ago, paroxysmal A. fib in December 2017 when patient has pneumonia which is switched back to sinus rhythm quickly, COPD on home oxygen, CKD, AAA, systolic CHF, and BPH. Patient has severe hearing loss, history obtained from patient's daughter at bedside. Patient has increased chest congestion, sometimes chest pain since 3 days ago. With increased cough and sputum. Patient denies fever. Since this morning, he has nausea and vomited 3 times. The vomiting are stomach content, no blood in it. Patient denies diaphoresis or increased shortness of breath. P atient has generalized weakness. He has BPH need self catheterization, however, he is too weak to perform the straight catheter, which caused urinary retention. Patient said chest pain resolved after he cough up sputum. In the emergency room, patient has mild elevated troponin. EKG shows sinus tachycardia with multiple PACs and PVCs, with II, III, AVF T wave inversion. ER doctor started heparin drip and admitted patient to rule out ACS. Past Med Surg Social Fam HX - Past Medical History Medical history: COPD, myocardial infarction Additional medical history: emphysema Psychiatric history: no psych history - Past Surgical History Surgical History: angioplasty/stent, coronary bypass (CABG) Additional surgical history: OPEN HEART. Prostate - Social History Smoking Status: Former smoker Smokeless Tobacco Status: No Alcohol use: none Drug use: none - Family History Mother History Unknown: Yes Internal Medicine - H&P: Meds Aspirin [Lo-Dose Aspirin EC] 81 mg PO DAILY 12/29/17 [History] Atorvastatin [Lipitor] 40 mg PO DAILY 12/29/17 [History] Budesonide/Formoterol 160/4.5 [Symbicort 160/4.5] 2 puff IH BIDR 12/29/17 [History] Docusate [Colace] 100 mg PO DAILY 12/29/17 [History] Ferrous Sulfate [Iron] 325 mg PO BID 12/29/17 [History] Finasteride [Proscar] 5 mg PO DAILY 12/29/17 [History] Guaifenesin [Mucinex] 600 mg PO BID 12/29/17 [History] Loratadine [Allergy Relief] 10 mg PO DAILY 12/29/17 [History] Mirtazapine [Remeron] 15 mg PO HS 12/29/17 [History] Montelukast [Singulair] 10 mg PO DAILY 12/29/17 [History] Multivit-Min/FA/Lycopen/Lutein [Centrum Silver Men Tablet] 1 tab PO DAILY 12/29/17 [History] Tamsulosin [Flomax] 0.4 mg PO DAILY 12/29/17 [History] rOPINIRole [Requip] 0.5 mg PO BID 12/29/17 [History] Albuterol Sulfate [Albuterol Inhaler] 2 puff IH Q6H PRN 12/30/17 [History] Metoprolol XL (24 HR) Succ [Toprol Xl] 12.5 mg PO DAILY 12/30/17 [History] Furosemide [Lasix] 40 mg PO Q48H 04/26/18 [History] Furosemide [Lasix] 20 mg PO Q48H 09/01/18 [History] predniSONE [PredniSONE] 20 mg PO DAILY #20 tablet 10/04/18 [Rx] Allergy/AdvReac Type Severity Reaction Status Date / Time tetracycline [Tetracycline] Allergy Hives Verified 10/04/18 17:11 Iodinated Contrast- Oral and AdvReac Pass Out Verified 10/04/18 17:11 IV Dye All Systems PM: A 10-system review of systems was performed and is negative for pertinent findings except as documented above in the HPI. - Constitutional Vitals: Temp Pulse Resp BP Pulse Ox 98.6 F 100 22 104/63 93 11/06/18 13:04 11/06/18 17:34 11/06/18 17:34 11/06/18 17:34 11/06/18 17:34 Exam: Pt is AAO x 3, in NAD, pleasant HEENT: NC/AT, PERRL, severe hearing loss Neck: Supple, no JVD, no LAD Lungs: CTA b/l, no wheezes/rhonchi/crackles Heart: S1S2, RRR, multiple skipped beats Abd: Soft, nontender, BS present Ext: ROM wnl, mild b/l pedal edema Neuro: No focal deficit Internal Med - H&P Results - Labs CBC & Chem 7: 11/06/18 13:41 11/06/18 13:41 Labs: Short CBC 11/06/18 Range/Units 13:41 WBC 9.9 (4.3-11.1) K/mcL Hgb 11.0 L (12.9-16.9) g/dL Hct 36.4 L (37.5-50.1) % Plt Count 142 (140-400) K/mcL Neutrophils # 8.3 (1.6-8.9) K/mcL BMP 11/06/18 13:41 Sodium 142 Potassium 4.7 Chloride 98 Carbon Dioxide 35 H BUN 51 H Creatinine 2.68 H Glucose 109 H Calcium 9.4 Cardiac Enzymes 11/06/18 Range/Units 13:41 Troponin I 0.07 H* (< 0.04) ng/mL Urine 11/06/18 Range/Units 14:08 Urine Color Yellow (Yellow) Urine Clarity Clear (Clear) Urine pH 6.5 (5.0-8.0) pH Units Ur Specific [place] 1.005 L (1.010-1.025) Urine Protein Negative (Neg-Trace) mg/dL Urine Glucose (UA) Normal (Normal) mg/dL - Impressions ITS Impressions Chest X-Ray 11/06/18 13:21 IMPRESSION: No evidence for acute cardiopulmonary process. D/ / 11/06/2018 15:21:42 Giles Ramey MD / [email or web address] Interpreting Provider: Giles Ramey MD - Assessment and plan (1) AAA (abdominal aortic aneurysm) Current Visit: Yes Status: Acute Assessment and plan: Pt has hx of AAA, will repeat US aorta Qualifiers: Presence of rupture: without rupture Qualified Code(s): I71.4 - Abdominal aortic aneurysm, without rupture (2) BPH (benign prostatic hyperplasia) Current Visit: Yes Status: Acute Assessment and plan: Patient was placed on Collins catheter because of urinary retention. Continue home medications. May resume self-catheter upon discharge. Qualifiers: Lower urinary tract symptom detail: urinary retention Qualified Code(s): N40.1 - Benign prostatic hyperplasia with lower urinary tract symptoms; R33.8 - Other retention of urine (3) Chronic systolic CHF (congestive heart failure) Current Visit: Yes Status: Acute Assessment and plan: EF of 40% on last echo. We will repeat echocardiogram. Continue home medication by mouth Lasix. (4) Chest pain Current Visit: Yes Status: Acute Assessment and plan: Patient cannot clearly describe characters of his chest pain. Has nausea, vomiting, with mild elevated troponin. History of CAD S/P CABG. Need to rule out ACS. - Continue cardiac monitoring - Track 3 sets of troponin - Patient is chest pain-free at this point - Heparin drip was started the from ER, will continue until NSTEMI is ruled out - EKG shows II, III, AVF T wave inversion, will repeat EKG in a.m. - Continue home medications aspirin, beta car, and statin. - Repeat echocardiogram, consult cardiology in a.m. Qualifiers: Chest pain type: unspecified Qualified Code(s): R07.9 - Chest pain, unspecified (5) COPD (chronic obstructive pulmonary disease) with emphysema Current Visit: Yes Status: Acute Assessment and plan: Patient has no wheezing. Continue home medications. change to Xopenex because of tachycardia. Qualifiers: Emphysema type: unspecified Qualified Code(s): J43.9 - Emphysema, unspecified (6) Afib Current Visit: No Status: Acute Assessment and plan: Right now sinus rhythm with multiple PACs/PVCs. Continue metoprolol for rate control. Continue aspirin. Check TSH and magnesium. Consult cardiology. Qualifiers: Atrial fibrillation type: paroxysmal Qualified Code(s): I48.0 - Paroxysmal atrial fibrillation (7) CAD (coronary artery disease) Current Visit: No Status: Acute Assessment and plan: Management as above Qualifiers: Coronary Disease-Associated Artery/Lesion type: bypass graft [place] vs. tra nsplanted heart: circle heart Associated angina: without angina Qualified Code(s): I25.810 - Atherosclerosis of coronary artery bypass graft(s) without angina pectoris (8) CKD (chronic kidney disease) Current Visit: No Status: Acute Assessment and plan: Creatinine level is at baseline Qualifiers: Chronic kidney disease stage: stage 3 (moderate) Qualified Code(s): N18.3 - Chronic kidney disease, stage 3 (moderate) (9) Urinary retention Current Visit: No Status: Acute Assessment and plan: Patient was placed on Collins catheter right now, may resume self-catheter upon discharge (10) Anemia Current Visit: No Status: Chronic Assessment and plan: Chronic, will consider continue iron pill. Qualifiers: Chronic kidney disease stage: stage 4 (severe) Qualified Code(s): N18.4 - Chronic kidney disease, stage 4 (severe); D63.1 - Anemia in chronic kidney disease (11) Acute bronchitis Current Visit: Yes Status: Acute Assessment and plan: Increased cough and sputum with chest congestion. Chest x-ray negative for pneumonia or pulmonary edema. - Respiratory viral panel - Symptomatic treatment with cough syrup - Continue oxygen supportive treatment Qualifiers: Bronchitis organism: unspecified organism Qualified Code(s): J20.9 - Acute bronchitis, unspecified - Time Spent With Patient Total time spent is greater than 50% in coordination of care (as documented) at patient's floor/unit and/or counseling patient: 40 minutes Greater than 35 minutes
[2018-11-06] MEDS ORDERED: Enoxaparin Weight Dosing SQ SCH (18:00)
[2018-11-06 18:01] LABS: Magnesium 1.9 mg/dL (1.6-2.6)
[2018-11-06 18:15] LABS: Thyroid Stimulating Hormone 2.722 mcIU/mL (0.340-5.600)
[2018-11-06] MEDS ORDERED: LEVOFLOXACIN 750 MG/150 ML IVPB ONE ×2 (19:00→23:00)
[2018-11-06] MEDS ORDERED: Perflutren Lipid Microsphere 1.3 ML in 0.9 % Sodium Chloride 8.7 ML IVP ONE (21:43)
[2018-11-06] MEDS: GuaiFENesin Liq 200 MG/10 ML UDC PO SCH ×2 (22:09→23:10)
[2018-11-06] MEDS: rOPINIRole 0.25 MG TABLET PO SCH (23:10)
[2018-11-06] MEDS: Mirtazapine 15 MG TABLET PO SCH (23:10)
[2018-11-06] MEDS: Levalbuterol Neb 1.25 MG/3 ML IH SCH (23:25)
[2018-11-06] MEDS: Budesonide/Formoterol 160/4.5 1 PUFF INH IH SCH (23:25)
[2018-11-07 01:08] LABS: Adenovirus Not Detected (Not Detect); Bordetella Pertussis Not Detected (Not Detect); Chlamydophila pneumoniae Not Detected (Not Detect); Coronavirus 229E Not Detected (Not Detect); Coronavirus HKU1 Not Detected (Not Detect); Coronavirus NL63 Not Detected (Not Detect); Coronavirus OC43 Not Detected (Not Detect); Human Metapneumovirus Not Detected (Not Detect); Human Rhinovirus/Enterovirus Not Detected (Not Detect); Influenza A Subtype 2009 H1 Not Detected (Not Detect); Influenza A Untypeable Not Detected (Not Detect); Influenza B Not Detected (Not Detect); Mycoplasma pneumoniae Not Detected (Not Detect); Parainfluenza Virus 1 Not Detected (Not Detect); Parainfluenza Virus 2 Not Detected (Not Detect); Parainfluenza Virus 3 Not Detected (Not Detect); Parainfluenza Virus 4 Not Detected (Not Detect); Respiratory Syncytial Virus Not Detected (Not Detect)
[2018-11-07] MEDS: Levalbuterol Neb 1.25 MG/3 ML IH SCH ×4 (04:04→22:35)
[2018-11-07] MEDS: GuaiFENesin Liq 200 MG/10 ML UDC PO SCH ×3 (05:00→17:47)
[2018-11-07 07:00] LABS: Basophils % 0.3 %; Eosinophils # 0.1 K/mcL (0.0-0.6); Eosinophils % 2.3 %; Hemoglobin 9.8 g/dL (12.9-16.9); Immature Granulocytes % 0.6 % (0-4); Lymphocytes # 0.8 K/mcL (0.6-4.6); Lymphocytes % 13.1 %; Mean Corpuscular HGB Conc 30.6 g/dL (31.6-35.5); Mean Corpuscular Hemoglobin 30.6 pg (28.0-33.3); Mean Platelet Volume 9.9 fL (9.4-12.4); Monocytes # 0.5 K/mcL (0.0-1.3); Monocytes % 8.3 %; Neutrophils # 4.6 K/mcL (1.6-8.9); Platelet Count 105 K/mcL (140-400); Red Cell Distribution Width 14.4 % (11.5-14.5); Segmented Neutrophils % 75.4 %
[2018-11-07 07:21] LABS: Calcium 8.7 mg/dL (8.6-10.3); Magnesium 1.9 mg/dL (1.6-2.6); Potassium 4.7 mEq/L (3.5-5.1)
[2018-11-07 07:24] LABS: Troponin I 0.08 ng/mL (< 0.04)
[2018-11-07] MEDS: Aspirin Enteric Coated 81 MG Tablet PO SCH (08:32)
[2018-11-07] MEDS: rOPINIRole 0.25 MG TABLET PO SCH ×2 (08:32→21:30)
[2018-11-07] MEDS: Finasteride 5 MG TABLET PO SCH (08:32)
[2018-11-07] MEDS ORDERED: Furosemide 40 MG TABLET PO SCH (09:00)
--- NOTE | 2018-11-07 09:22 | Cardiology Consult Note ---
Date of Encounter: 11/07/18 Time of Encounter: 08:15 Assessment and Plan (1) Elevated troponin Current Visit: Yes Status: Acute Likely secondary to stress from recent cough and pneumonia. Mr. Collazo was presented to the ED. He complained of worsening decrease in his energy level and unable to walk very far due to muscle fatigue. At presentation he was noted to have sinus tachycardia and T wave inversions in lead II, III and avF. He has history of CAD and s/p CABG 4 years ago. At presentation he denied chest pain. He does complain of productive cough and recent diagnosis of pneumonia outpatient was started on levaquin 3 days ago. His EF on 04/26 was 40% with global LV dysfunction and his new echo shows EF of 45% with mild dilated LV dysfunction. -Continue aspirin, statin and BB -Medical management -Not recommending invasive procedure given CKD stage 4, high risk for non emergent intervention -If chest pain occurs consider imdur (2) AF (paroxysmal atrial fibrillation) Current Visit: Yes Status: Chronic History of paraxysmal atrial fibrillation. He was sinus rhythm at presentation but was tachycardic. Continues to remain in sinus rhythm at this time. His heart rate is controlled. -Continue home metoprolol to keep heart rate below 90, add additional agents if uncontrolled (3) CAD (coronary artery disease) Current Visit: No Status: Chronic History of CAD. S/p CABG 4 years ago. He is not complaining of chest pain at this time. -Continue home statin Qualifiers: Coronary Disease-Associated Artery/Lesion type: bypass graft [place] vs. transplanted heart: [place] heart Associated angina: without angina Qualified Code(s): I25.810 - Atherosclerosis of coronary artery bypass graft(s) without angina pectoris Discussion w patient/family: The assessment and plan as outlined above was discussed with the patient and/or family members who expressed understanding and agreement. All questions were answered. Thank you for involving us in the care of your patient. Please call with any questions. History of Present Illness Consult date: 11/06/18 Requesting physician: Larisa Bridges Consult reason: elevated troponin History of present illness: Mr. Collazo is a 88 year old male who was presented to the ED due to a recent fall at home. He noted for the past week he has noted decreased energy to do daily tasks. He complaind of cough and chronic cough at presentation. 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 3 days ago he was placed on levaquin by his PCP due to breathing difficulties. In the ED he was noted to have troponin mildly elevated at 0.07, 0.11, 0.12 and 0.08. This morning he is resting in bed and denies any chest pain. He complains of productive cough with thick white sputum. He denies nausea or emesis. He does self catherize at home and due to his decrease in energy he has been unable to do so. Past Med Surg Social Fam HX - Past Medical History Medical history: COPD, myocardial infarction Additional medical history: emphysema, enlarged prostate Psychiatric history: no psych history - Past Surgical History Surgical History: angioplasty/stent, coronary bypass (CABG) Additional surgical history: OPEN HEART. prostate sx - Social History Smoking Status: Former smoker Smokeless Tobacco Status: No Alcohol use: none Drug use: none - Family History Mother History Unknown: Yes Living Status: Father Hx Family Cancer: Yes (prostate ca) Medications and Allergies Aspirin [Lo-Dose Aspirin EC] 81 mg PO DAILY 12/29/17 [History] Atorvastatin [Lipitor] 40 mg PO DAILY 12/29/17 [History] Budesonide/Formoterol 160/4.5 [Symbicort 160/4.5] 2 puff IH BIDR 12/29/17 [History] Docusate [Colace] 100 mg PO TID 12/29/17 [History] Ferrous Sulfate [Iron] 325 mg PO BID 12/29/17 [History] Finasteride [Proscar] 5 mg PO DAILY 12/29/17 [History] Guaifenesin [Mucinex] 600 mg PO BID 12/29/17 [History] Loratadine [Allergy Relief] 10 mg PO DAILY 12/29/17 [History] Mirtazapine [Remeron] 15 mg PO HS 12/29/17 [History] Montelukast [Singulair] 10 mg PO DAILY 12/29/17 [History] Multivit-Min/FA/Lycopen/Lutein [Centrum Silver Men Tablet] 1 tab PO DAILY 12/29/17 [History] Tamsulosin [Flomax] 0.4 mg PO DAILY 12/29/17 [History] rOPINIRole [Requip] 0.5 mg PO BID 12/29/17 [History] Albuterol Sulfate [Albuterol Inhaler] 2 puff IH Q6H PRN 12/30/17 [History] Metoprolol XL (24 HR) Succ [Toprol Xl] 12.5 mg PO DAILY 12/30/17 [History] Furosemide [Lasix] 40 mg PO Q48H 04/26/18 [History] Furosemide [Lasix] 20 mg PO Q48H 09/01/18 [History] Albuterol Neb [Proventil Neb] 3 ml IH BID 11/06/18 [History] levoFLOXacin [Levofloxacin] 500 mg PO DAILY 11/06/18 [History] Allergy/AdvReac Type Severity Reaction Status Date / Time tetracycline [Tetracycline] Allergy Hives Verified 10/04/18 17:11 Iodinated Contrast- Oral and AdvReac Pass Out Verified 10/04/18 17:11 IV Dye All Systems Review: The remainder of the systems were reviewed and are negative - Constitutional Constitutional: weakness (diffuse), no chills, no fever(s) - Cardiovascular Cardiovascular: dyspnea at rest (On home oxygen ), no chest pain at rest, no chest pain with exertion, no dyspnea on exertion, no orthopnea, no palpitations - Respiratory Respiratory: cough, dyspnea - Gastrointestinal Gastrointestinal: no abdominal pain, no nausea - Genitourinary Genitourinary: other (unable to urina) - Musculoskeletal Musculoskeletal: no muscle weakness - Integumentary Integumentary: no erythema, no rash - Neurological Neurological: no focal weakness, no numbness Physical Examination Vital Signs, Last 4 Hours Temp Pulse Resp BP Pulse Ox 11/07/18 08:49 94 11/07/18 07:09 98.7 F 87 16 120/64 94 Results 11/07/18 06:50 11/07/18 06:50 Lab Results 11/06/18 11/06/18 11/06/18 13:41 13:41 17: WBC 9.9 Hgb 11.0 L Hct 36.4 L Plt Count 142 INR APTT Sodium 142 Potassium 4.7 Chloride 98 Carbon Dioxide 35 H BUN 51 H Creatinine 2.68 H Glucose 109 H Calcium 9.4 Magnesium 1.9 Troponin I 0.07 H* 0.11 H* TSH 2.722 11/06/18 11/06/18 11/06/18 17:19 17:19 23:57 WBC 9.1 Hgb 10.9 L Hct 35.4 L Plt Count 142 INR 1.1 APTT Sodium Potassium Chloride Carbon Dioxide BUN Creatinine Glucose Calcium Magnesium Troponin I 0.12 H* TSH 11/07/18 11/07/18 11/07/18 06:50 06:50 06:50 WBC 6.2 Hgb 9.8 L Hct 32.0 L Plt Count 105 L INR APTT 48.3 H Sodium 142 Potassium 4.7 Chloride 99 Carbon Dioxide 34 H BUN 56 H Creatinine 2.98 H Glucose 93 Calcium 8.7 Magnesium 1.9 Troponin I 0.08 H* TSH Consult Discharge Plan - Plan Referrals: Rosibel Castellano CNP [Primary Care Provider] - 11/11/18 10:30 am
[2018-11-07] MEDS: Budesonide/Formoterol 160/4.5 1 PUFF INH IH SCH ×2 (12:00→22:35)
[2018-11-07] MEDS: Azithromycin 500 MG in D5% in Water 250 ML IVPB SCH (13:11)
--- NOTE | 2018-11-07 13:17 | Internal Med Progress Note ---
Hospitalist Progress Note - Encounter Date of Encounter: 11/07/18 Time of Encounter: 09:00 - Subjective Interval History: Patient feels better. Less chest congestion. Still mild cough. Cardiology consult appreciated. Not consider ACS. Continue conservative treatment - Exam Vitals: Temp Pulse Resp BP Pulse Ox 99.5 F 115 20 118/69 93 11/07/18 11:02 11/07/18 11:02 11/07/18 11:02 11/07/18 11:02 11/07/18 11:02 Exam: Pt is AAO x 3, in NAD, pleasant HEENT: NC/AT, PERRL, severe hearing loss Neck: Supple, no JVD, no LAD Lungs: CTA b/l, no wheezes/rhonchi/crackles Heart: S1S2, RRR, multiple skipped beats Abd: Soft, nontender, BS present Ext: ROM wnl, mild b/l pedal edema Neuro: No focal deficit - Assessment and Plan (1) AAA (abdominal aortic aneurysm) Current Visit: Yes Status: Acute Assessment and Plan: Pt has hx of AAA, Repeat US aorta shows AAA 4.6 cm, will refer vascular surgery follow-up upon discharge. (2) BPH (benign prostatic hyperplasia) Current Visit: Yes Status: Acute Assessment and Plan: Patient was placed on Collins catheter because of urinary retention. Continue home medications. May resume self-catheter upon discharge. (3) Chronic systolic CHF (congestive heart failure) Current Visit: Yes Status: Acute Assessment and Plan: EF of 45% on repeat echo. Continue home medication by mouth Lasix, metoprolol. (4) Chest pain Current Visit: Yes Status: Acute Assessment and Plan: Cardiology consult appreciated. No chest pain at this point. Troponin 0.07-0.11-0.12-0.08, patient has CKD and systolic CHF. Not considered ACS. Continue conservative treatment for CAD. (5) COPD (chronic obstructive pulmonary disease) with emphysema Current Visit: Yes Status: Acute Assessment and Plan: Patient has no wheezing. Continue home medications. change to Xopenex because of tachycardia. (6) Afib Current Visit: No Status: Acute Assessment and Plan: Right now sinus rhythm with multiple PACs/PVCs. Continue metoprolol for rate control. Continue aspirin. Cardiology consult appreciated (7) CAD (coronary artery disease) Current Visit: No Status: Chronic Assessment and Plan: Management as above (8) CKD (chronic kidney disease) Current Visit: No Status: Acute Assessment and Plan: Creatinine level is at baseline. Avoid the nephrotoxic medications (9) Urinary retention Current Visit: No Status: Acute Assessment and Plan: Patient was placed on Collins catheter right now, may resume self-catheter upon discharge (10) Anemia Current Visit: No Status: Chronic Assessment and Plan: Chronic, will consider continue iron pill. (11) Acute bronchitis Current Visit: Yes Status: Acute Assessment and Plan: Increased cough and sputum with chest congestion. Chest x-ray negative for pneumonia or pulmonary edema. - Respiratory viral panel negative - Symptomatic treatment with cough syrup - Continue oxygen supportive treatment - Give azithromycin consider patient has severe COPD - Time Spent with Patient Total time spent is greater than 50% in coordination of care (as documented) at patient's floor/unit and/or counseling patient: 30 min 25 - 35 minutes Plan of Care Discussed with: patient Internal Medicine: Result - Labs CBC & Chem 7: 11/07/18 06:50 11/07/18 06:50 Labs: Short CBC 11/06/18 11/06/18 11/07/18 Range/Units 13:41 17:19 06:50 WBC 9.9 9.1 6.2 (4.3-11.1) K/mcL Hgb 11.0 L 10.9 L 9.8 L (12.9-16.9) g/dL Hct 36.4 L 35.4 L 32.0 L (37.5-50.1) % Plt Count 142 142 105 L (140-400) K/mcL Neutrophils # 8.3 4.6 (1.6-8.9) K/mcL BMP 11/06/18 11/07/18 13:41 06:50 Sodium 142 142 Potassium 4.7 4.7 Chloride 98 99 Carbon Dioxide 35 H 34 H BUN 51 H 56 H Creatinine 2.68 H 2.98 H Glucose 109 H 93 Calcium 9.4 8.7 Cardiac Enzymes 11/06/18 11/06/18 11/06/18 Range/Units 13:41 17:19 23:57 Troponin I 0.07 H* 0.11 H* 0.12 H* (< 0.04) ng/mL 11/07/18 Range/Units 06:50 Troponin I 0.08 H* (< 0.04) ng/mL Urine 11/06/18 Range/Units 14:08 Urine Color Yellow (Yellow) Urine Clarity Clear (Clear) Urine pH 6.5 (5.0-8.0) pH Units Ur Specific Seltzer 1.005 L (1.010-1.025) Urine Protein Negative (Neg-Trace) mg/dL Urine Glucose (UA) Normal (Normal) mg/dL - ABG Interpretation ABG results: PT/INR, D-dimer PT 11.9 Seconds (9.4-12.1) 11/06/18 17:19 - Impressions Impressions Chest X-Ray 11/06/18 13:21 IMPRESSION: No evidence for acute cardiopulmonary process. D/ / 11/06/2018 15:21:42 Giles Ramey MD / [email or web address] Interpreting Provider: Giles Ramey MD Echocardiogram 11/06/18 17:26 Impressions: LVEF 45%. Mildly dilated left ventricle. Mild left ventricular diastolic dysfunction. Atypical septal motion consistent with post-operative status. Normal right ventricular structure and function. Mild aortic regurgitation. Unable to estimate RVSP due to lack of TR jet. Left Ventricular Wall Motion: Rest Echo Findings The apex, apical inferior, mid inferior, basal inferior, apical anterior, mid anterior, basal anterior, apical septal, mid inferior septal, basal inferior septal, apical lateral, mid anterior lateral, basal anterior lateral, mid anterior septal, mid inferior lateral, basal anterior septal and basal inferior lateral cortes were hypokinetic. Findings: Study Quality * Technically adequate exam. ECG Findings * Normal sinus rhythm. Left Ventricle * LVEF 45%. * Mildly dilated left ventricle. * Mild left ventricular diastolic dysfunction. * Definity echo contrast was used. * Atypical septal motion consistent with post-operative status. Right Ventricle * Normal right ventricular structure and function. Left Atrium * Mildly dilated left atrium. Right Atrium * Normal right atrial size. Interatrial Septum * Interatrial septum not well evaluated. Aortic Valve * Mildly calcified aortic valve leaflets. * Mild aortic regurgitation. * No aortic stenosis. Mitral Valve * Normal mitral valve structure. * No mitral stenosis. * Trace mitral regurgitation. Tricuspid Valve * Trace tricuspid regurgitation. * No tricuspid stenosis. * Normal tricuspid valve structure. * Unable to estimate RVSP due to lack of TR jet. Pulmonic Valve * Pulmonic valve not well visualized. Aorta * Normally sized aortic root. Pericardium * The pericardium appears normal. IVC * The IVC is not well evaluated. Aorta Ultrasound 11/07/18 07:30 IMPRESSION: Atherosclerotic appearance to the aorta. Infrarenal aortic aneurysm measuring 4.0 x 4.6 cm in AP and transverse dimensions, spanning approximately 7 cm in length. These measurements are increased as compared to previous CT of 04/25/2018. 4.6 cm AAA Recommend vascular consultation and follow-up every 6 months. Reference: J Vasc Surg 2009 Oct;50(4 Suppl):S2-49. D/ / Cecil Lynn MD / Cecil Lynn MD Interpreting Provider: Cecil Lynn MD Consult Discharge Plan - Plan Referrals: Rosibel Castellano, [employer] [Primary Care Provider] - 11/11/18 10:30 am (1) AAA (abdominal aortic aneurysm) Qualifiers: Presence of rupture: without rupture Qualified Code(s): I71.4 - Abdominal aortic aneurysm, without rupture (2) BPH (benign prostatic hyperplasia) Qualifiers: Lower urinary tract symptom detail: urinary retention Qualified Code(s): N40.1 - Benign prostatic hyperplasia with lower urinary tract symptoms; R33.8 - Other retention of urine (4) Chest pain Qualifiers: Chest pain type: unspecified Qualified Code(s): R07.9 - Chest pain, unspecified (5) COPD (chronic obstructive pulmonary disease) with emphysema Qualifiers: Emphysema type: unspecified Qualified Code(s): J43.9 - Emphysema, unspecified (6) Afib Qualifiers: Atrial fibrillation type: paroxysmal Qualified Code(s): I48.0 - Paroxysmal atrial fibrillation (7) CAD (coronary artery disease) Qualifiers: Coronary Disease-Associated Artery/Lesion type: bypass graft [place] vs. [place] heart: [place] heart Associated angina: without angina Qualified Code(s): I25.810 - Atherosclerosis of coronary artery bypass graft(s) without angina pectoris (8) CKD (chronic kidney disease) Qualifiers: Chronic kidney disease stage: stage 3 (moderate) Qualified Code(s): N18.3 - Chronic kidney disease, stage 3 (moderate) (10) Anemia Qualifiers: Chronic kidney disease stage: stage 4 (severe) Qualified Code(s): N18.4 - Chronic kidney disease, stage 4 (severe); D63.1 - Anemia in chronic kidney disease (11) Acute bronchitis Qualifiers: Bronchitis organism: unspecified organism Qualified Code(s): J20.9 - Acute bronchitis, unspecified
[2018-11-07] MEDS: *HR* Heparin 5,000 UNIT/ML VIAL SQ SCH (17:47)
[2018-11-07] MEDS: Acetaminophen 325 MG TABLET PO PRN (19:41)
[2018-11-07] MEDS: Mirtazapine 15 MG TABLET PO SCH (21:31)
[2018-11-08] MEDS: GuaiFENesin Liq 200 MG/10 ML UDC PO SCH ×3 (01:21→14:18)
[2018-11-08] MEDS: Levalbuterol Neb 1.25 MG/3 ML IH SCH ×3 (03:57→15:47)
[2018-11-08 05:42] LABS: Hematocrit 31.3 % (37.5-50.1); Hemoglobin 9.9 g/dL (12.9-16.9); Immature Granulocytes % 0.5 % (0-4); Lymphocytes % 17.2 %; Mean Corpuscular HGB Conc 31.6 g/dL (31.6-35.5); Mean Corpuscular Hemoglobin 30.5 pg (28.0-33.3); Mean Corpuscular Volume 96.3 fL (83.0-100.0); Mean Platelet Volume 10.9 fL (9.4-12.4); Platelet Count 118 K/mcL (140-400); Red Blood Count 3.25 M/mcL (4.19-5.50); Red Cell Distribution Width 14.4 % (11.5-14.5)
[2018-11-08 05:43] LABS: Basophils % 0.2 %; Eosinophils # 0.1 K/mcL (0.0-0.6); Eosinophils % 2.1 %; Lymphocytes # 1.1 K/mcL (0.6-4.6); Monocytes # 0.5 K/mcL (0.0-1.3); Neutrophils # 4.4 K/mcL (1.6-8.9)
[2018-11-08] MEDS: *HR* Heparin 5,000 UNIT/ML VIAL SQ SCH (05:49)
[2018-11-08] MEDS: Acetaminophen 325 MG TABLET PO PRN (05:52)
[2018-11-08 06:00] LABS: Potassium 4.4 mEq/L (3.5-5.1)
[2018-11-08 07:19] VITALS: BP 117/60
[2018-11-08] MEDS: Finasteride 5 MG TABLET PO SCH (08:14)
[2018-11-08] MEDS: Aspirin Enteric Coated 81 MG Tablet PO SCH (08:15)
[2018-11-08] MEDS: rOPINIRole 0.25 MG TABLET PO SCH (08:15)
[2018-11-08] MEDS ORDERED: Furosemide 40 MG TABLET PO SCH (09:00)
[2018-11-08] MEDS ORDERED: predniSONE 20 MG TABLET PO SCH (10:30)
--- NOTE | 2018-11-08 10:33 | Discharge Summary ---
- NOTES TO OUTPATIENT PROVIDER Notes to Outpatient Provider: 1. Patient has acute bronchitis, will continue by mouth as azithromycin and cough syrup for 7 days. 2. Patient has gout flare, will start by mouth prednisone with gradually taper down and by mouth allopurinol. 3. Please follow-up renal function on follow-up visit. 4. US aorta shows increased size of AAA, please follow up with vascular surgeon as outpatient. Orders not resulted at time of discharge: Pending orders 11/06/18 13:19 EKG [ECG 12 lead ECG] [ECG] Stat 11/06/18 13:41 Culture,Blood [BC] Stat 11/06/18 18:44 Culture,Sputum with Gram Stain [RM] Stat 11/07/18 06:00 ECG 12 lead ECG [ECG] AM 0600 Date of Encounter: 11/08/18 Time of Encounter: 09:00 - Discharge Diagnosis (1) AAA (abdominal aortic aneurysm) Priority: Secondary Status: Acute Qualifiers: Presence of rupture: without rupture Qualified Code(s): I71.4 - Abdominal aortic aneurysm, without rupture (2) BPH (benign prostatic hyperplasia) Priority: Secondary Status: Acute Qualifiers: Lower urinary tract symptom detail: urinary retention Qualified Code(s): N40.1 - Benign prostatic hyperplasia with lower urinary tract symptoms; R33.8 - Other retention of urine (3) Chronic systolic CHF (congestive heart failure) Priority: Secondary Status: Acute (4) Chest pain Priority: Primary Status: Acute Qualifiers: Chest pain type: unspecified Qualified Code(s): R07.9 - Chest pain, unspecified (5) COPD (chronic obstructive pulmonary disease) with emphysema Priority: Secondary Status: Acute Qualifiers: Emphysema type: unspecified Qualified Code(s): J43.9 - Emphysema, unspecified (6) Afib Priority: Secondary Status: Acute Qualifiers: Atrial fibrillation type: paroxysmal Qualified Code(s): I48.0 - Paroxysmal atrial fibrillation (7) CAD (coronary artery disease) Priority: Secondary Status: Chronic Qualifiers: Coronary Disease-Associated Artery/Lesion type: bypass graft [place] vs. transplanted heart: [place] heart Associated angina: without angina Qualified Code(s): I25.810 - Atherosclerosis of coronary artery bypass graft(s) without angina pectoris (8) CKD (chronic kidney disease) Priority: Secondary Status: Acute Qualifiers: Chronic kidney disease stage: stage 3 (moderate) Qualified Code(s): N18.3 - Chronic kidney disease, stage 3 (moderate) (9) Urinary retention Priority: Primary Status: Acute (10) Anemia Priority: Secondary Status: Chronic Qualifiers: Chronic kidney disease stage: stage 4 (severe) Qualified Code(s): N18.4 - Chronic kidney disease, stage 4 (severe); D63.1 - Anemia in chronic kidney disease (11) Acute bronchitis Priority: Primary Status: Acute Qualifiers: Bronchitis organism: unspecified organism Qualified Code(s): J20.9 - Acute bronchitis, unspecified (12) Gout flare Priority: Primary Status: Acute Qualifiers: Gout site: hand Gout etiology: unspecified cause Laterality: right Qualified Code(s): M10.9 - Gout, unspecified Hospital course: Mr. Collazo is a 88 year old male presented to ER for chest pain and chest congestion. Patient was placed on cardiac monitoring, serial troponin was checked. Cardiology consult saw patient. ACS is ruled out, continue conservative treatment. Patient was also consider acute bronchitis and was treated with antibiotic and cough syrup. After treatment, patient feels less cough, much better, about his baseline. Will DC patient home and continue follow-up with PCP as outpatient. Will continue his home health service. I have seen and examined the patient today. Patient said he feels much better, mild cough, baseline difficulty breathing. Vitals are stable. SPO2 97% on 3 L nasal cannula oxygen, which is his baseline. No wheezing. Patient has right i ndex finger gout flare, will start by mouth steroids and by mouth allopurinol upon discharge. Patient has mild elevated creatinine but still in his baseline range, he has good urine output, will continue closely monitor as outpatient. Patient has history of AAA, US shows increased size to 4.6 cm. Patient will follow-up with vascular surgery as outpatient. Patient has hearing loss, I called his daughter and all the above recommendation discussed with his daughter Ms Keyes, she shows agreement. Discharge discussed with: family - Time Spent with Patient Total time spent providing and/or coordinating discharge services: 25 min Less than 30 minutes - Discharge Medications Prescriptions: GuaiFENesin Liq [Robitussin Liq] 200 mg PO Q6HR 7 Days #28 udc Allopurinol [Zyloprim 100 MG] 100 mg PO DAILY 30 Days #30 tablet predniSONE [PredniSONE] See Taper PO DAILY 9 Days #12 tablet Home Medications: Aspirin [Lo-Dose Aspirin EC] 81 mg PO DAILY 12/29/17 [History] Atorvastatin [Lipitor] 40 mg PO DAILY 12/29/17 [History] Budesonide/Formoterol 160/4.5 [Symbicort 160/4.5] 2 puff IH BIDR 12/29/17 [History] Docusate [Colace] 100 mg PO TID 12/29/17 [History] Ferrous Sulfate [Iron] 325 mg PO BID 12/29/17 [History] Finasteride [Proscar] 5 mg PO DAILY 12/29/17 [History] Loratadine [Allergy Relief] 10 mg PO DAILY 12/29/17 [History] Mirtazapine [Remeron] 15 mg PO HS 12/29/17 [History] Montelukast [Singulair] 10 mg PO DAILY 12/29/17 [History] Multivit-Min/FA/Lycopen/Lutein [Centrum Silver Men Tablet] 1 tab PO DAILY 12/29/17 [History] Tamsulosin [Flomax] 0.4 mg PO DAILY 12/29/17 [History] rOPINIRole [Requip] 0.5 mg PO BID 12/29/17 [History] Albuterol Sulfate [Albuterol Inhaler] 2 puff IH Q6H PRN 12/30/17 [History] Metoprolol XL (24 HR) Succ [Toprol Xl] 12.5 mg PO DAILY 12/30/17 [History] Furosemide [Lasix] 40 mg PO Q48H 04/26/18 [History] Furosemide [Lasix] 20 mg PO Q48H 09/01/18 [History] Albuterol Neb [Proventil Neb] 3 ml IH BID 11/06/18 [History] Allopurinol [Zyloprim 100 MG] 100 mg PO DAILY 30 Days #30 tablet 11/08/18 [Rx] Azithromycin 250 mg PO DAILY 5 Days #5 tablet 11/08/18 [Rx] GuaiFENesin Liq [Robitussin Liq] 200 mg PO Q6HR 7 Days #28 udc 11/08/18 [Rx] predniSONE [PredniSONE] See Taper PO DAILY 9 Days #12 tablet 11/08/18 [Rx] Allergies/Adverse Reactions: Allergy/AdvReac Type Severity Reaction Status Date / Time tetracycline [Tetracycline] Allergy Hives Verified 10/04/18 17:11 Iodinated Contrast- Oral and AdvReac Pass Out Verified 10/04/18 17:11 IV Dye Date of admission: 11/06/18 20:00 Primary care physician: NATALYA Isaac Consults: 11/07/18 08:23 Consult to Nurse Navigator [CONS] Routine Comment: COPD Discharging clinician: Larisa Bridges Anticipated date of discharge: 11/08/18 - Constitutional Vitals: Temp Pulse Resp BP Pulse Ox 98.7 F 105 16 117/60 97 11/08/18 07:14 11/08/18 07:14 11/08/18 07:14 11/08/18 07:14 11/08/18 08:25 Exam: Pt is AAO x 3, in NAD HEENT: NC/AT, PERRL, chronic hearing loss Neck: Supple, no JVD, no LAD Lungs: CTA b/l, no wheezing Heart: S1S2, RRR Abd: Soft, nontender, BS present Ext: ROM wnl, no pedal edema Neuro: No focal deficit - Patient Status Disposition: Home Health Service Condition: Good Functional capacity at discharge: uses cane/walker Overall status at discharge: patient is back to baseline - Discharge Instructions Follow Up With: Rosibel Castellano CNP [Primary Care Provider] - 11/11/18 10:30 am - Diet and Activity Activity: as per physical therapy Diet: low fat, low cholesterol, low salt diet
--- NOTE | 2018-11-08 10:59 | Physician Discharge Referral ---
Home Health/Hosp Referral Info Transfer to: Home Health Provider in Charge Post Discharge: PCP - Diagnosis (1) AAA (abdominal aortic aneurysm) Status: Acute (2) BPH (benign prostatic hyperplasia) Status: Acute (3) Chronic systolic CHF (congestive heart failure) Status: Acute (4) Chest pain Status: Acute (5) COPD (chronic obstructive pulmonary disease) with emphysema Status: Acute (6) Afib Status: Acute (7) CAD (coronary artery disease) Status: Chronic (8) CKD (chronic kidney disease) Status: Acute (9) Urinary retention Status: Acute (10) Anemia Status: Chronic (11) Acute bronchitis Status: Acute (12) Gout flare Status: Acute - Respiratory Orders Oxygen / L per min (3-4) Smoking Cessation: Smoking cessation has been advised. For more information, call the [employer] Quit Line at 1-678-VQIR-NOW. - Services Needed Following services are medically necessary services: Nursing, Home Health Aide, Physical Therapy, Occupational Therapy - Transfer Medications Prescriptions: GuaiFENesin Liq [Robitussin Liq] 200 mg PO Q6HR 7 Days #28 udc Allopurinol [Zyloprim 100 MG] 100 mg PO DAILY 30 Days #30 tablet Azithromycin 250 mg PO DAILY 5 Days #5 tablet predniSONE [PredniSONE] See Taper PO DAILY 9 Days #12 tablet Home Medications: Aspirin [Lo-Dose Aspirin EC] 81 mg PO DAILY 12/29/17 [History] Atorvastatin [Lipitor] 40 mg PO DAILY 12/29/17 [History] Budesonide/Formoterol 160/4.5 [Symbicort 160/4.5] 2 puff IH BIDR 12/29/17 [History] Docusate [Colace] 100 mg PO TID 12/29/17 [History] Ferrous Sulfate [Iron] 325 mg PO BID 12/29/17 [History] Finasteride [Proscar] 5 mg PO DAILY 12/29/17 [History] Loratadine [Allergy Relief] 10 mg PO DAILY 12/29/17 [History] Mirtazapine [Remeron] 15 mg PO HS 12/29/17 [History] Montelukast [Singulair] 10 mg PO DAILY 12/29/17 [History] Multivit-Min/FA/Lycopen/Lutein [Centrum Silver Men Tablet] 1 tab PO DAILY 12/29/17 [History] Tamsulosin [Flomax] 0.4 mg PO DAILY 12/29/17 [History] rOPINIRole [Requip] 0.5 mg PO BID 12/29/17 [History] Albuterol Sulfate [Albuterol Inhaler] 2 puff IH Q6H PRN 12/30/17 [History] Metoprolol XL (24 HR) Succ [Toprol Xl] 12.5 mg PO DAILY 12/30/17 [History] Furosemide [Lasix] 40 mg PO Q48H 04/26/18 [History] Furosemide [Lasix] 20 mg PO Q48H 09/01/18 [History] Albuterol Neb [Proventil Neb] 3 ml IH BID 11/06/18 [History] Allopurinol [Zyloprim 100 MG] 100 mg PO DAILY 30 Days #30 tablet 11/08/18 [Rx] Azithromycin 250 mg PO DAILY 5 Days #5 tablet 11/08/18 [Rx] GuaiFENesin Liq [Robitussin Liq] 200 mg PO Q6HR 7 Days #28 udc 11/08/18 [Rx] predniSONE [PredniSONE] See Taper PO DAILY 9 Days #12 tablet 11/08/18 [Rx] Allergies/Adverse Reactions: Allergy/AdvReac Type Severity Reaction Status Date / Time tetracycline [Tetracycline] Allergy Hives Verified 10/04/18 17:11 Iodinated Contrast- Oral and AdvReac Pass Out Verified 10/04/18 17:11 IV Dye Certification: Further, I certify that my clinical findings support that this patient is homebound (i.e. absences from home require considerable and taxing effort and are for medical reasons or restoration services or infrequently or short duration when for other reasons) because: Homebound Reason: Patient requires assistance of a person or device to safely leave home Attestation: My signature below is to certify that this patient is under my care and that I, or nurse practitioner, or a physician's photographer assistant working with me, has a [id number] encounter with this patient.
[2018-11-08] MEDS: Budesonide/Formoterol 160/4.5 1 PUFF INH IH SCH (11:28)
[2018-11-08] MEDS: Azithromycin 500 MG in D5% in Water 250 ML IVPB SCH (14:18)
[2018-11-08] MEDS ORDERED: Levofloxacin 500 MG/100 ML 500 MG/100 ML BAG IVPB SCH (23:00)
--- NOTE | 2018-11-10 16:04 | Electrocardiograph Report ---
[address] [place], [place] [address] Test Date: 2018-11-06 Pat Name: Som Collazo Department: [id number] Room: 3B Gender: M Brickmason Apprentice: : [id number] Requested By: Nixon Heredia Order Number: [id number] Reading MD: Cruzito Staley Measurements Intervals [place] Rate: 127 P: 101 IN: 150 QRS: 87 QRSD: 105 T: -42 QT: 313 QTc: 455 Interpretive Statements Sinus tachycardia Ventricular premature complex Inferior infarct, age indeterminate Electronically Signed On 11-10-2018 16:02:55 EST by Cruzito Staley
== END 2018-11-08 16:38 | disposition home health service (06) ==
LOC: EMEROOARM 13:02 → 3BNU 13:02
PROVIDERS: ADMIT Internal Medicine; ATTEND Internal Medicine